=== PATIENT | female | born 1960 | race Caucasian/White ===

== ENCOUNTER 2016-08-02 01:41 | Emergency (ER) | payer OTHER ==
[~2016-08-02] VITALS: Ht 162.5 cm; Wt 86.2 kg
[~2016-08-02 01:41] MED LIST: ALL DAY ALLERGY10 MG PO; AMBIEN10 M1 PO; AMITRIPTYLINE H10 M1 PO; ATIVAN0.5 MG PO; Amitriptyline H10 MG PO; BACLOFEN20 M1 PO; CYCLOBENZAPRINE10 MG PO; DICYCLOMINE HCL20 MG PO; GOOD NEIGHBOR150 MG PO; HYDROXYZINE HCL25 M1 PO; IBU800 M1 PO; LACTULOSE10 GM/151 PO; MEDROL DOSEPAK4 MG PO; MIRALAX POWDER17 G1 PO; MIRALAX POWDER255 G1 PO; NASAL ALLERGY S13 ML NAS; NORCO 5-325 TA1 EACH PO; OMEPRAZOLE40 MG PO; OXYCODONE AND A1 TA4 PO; PAXIL10 MG PO; PAXIL30 M2 PO; PAXIL40 M1 PO; PERCOCET 325 MG1 TA2 PO; PERCOCET 325 MG1 TA5 PO; PRILOSEC20 M1 PO; PROAIR HFA8.5 GM INH; PYRIDIUM100 MG PO; RANITIDINE 7575 MG PO; ROBAXIN750 MG PO; ROZEREM8 MG PO; TRAMADOL HCL50 MG PO; VALIUM5 MG PO; VICODIN 5/500 505 MG PO; ZOFRAN ODT4 MG SL; Zofran4 MG PO
[2016-08-02 01:47] VITALS: BP 163/93
[2016-08-02 03:01] LABS: BASO # 0.1 10*3/uL (0.0-0.1); BASO % 0.7 % (0.0-1.0); EOS # 0.3 10*3/uL (0.0-0.4); EOS % 3.3 % (1.0-4.0); HEMATOCRIT 47.4 % (37.0-47.0); LYMPH # 2.8 10*3/uL (1.3-4.4); LYMPH % 27.9 % (27.0-41.0); MEAN CELL VOLUME 89.8 fl (81.0-99.0); MEAN CORPUSCULAR HGB 30.3 pg (27.0-31.0); MEAN CORPUSCULAR HGB CONC 33.8 g/dl (33.0-37.0); MEAN PLATELET VOLUME 10.1 fl (9.6-12.3); MONO # 0.6 10*3/uL (0.1-1.0); MONO % 6.3 % (3.0-9.0); NEUT # 6.2 10*3/uL (2.3-7.9); NEUT % 61.6 % (47.0-73.0); PLATELET COUNT AUTOMATED 289 10*3/uL (130-400); RED BLOOD COUNT 5.28 10*6/uL (4.10-5.10); WHITE BLOOD COUNT 10.1 10*3/uL (4.8-10.8)
[2016-08-02 03:19] LABS: C-REACTIVE PROTEIN 0.86 MG/DL (0-0.3); MAGNESIUM 2.4 mg/dL (1.5-2.1)
[2016-08-02 03:25] LABS: ALBUMIN 3.8 gm/dl (3.1-4.5); ALKALINE PHOSPHATASE 88 U/L (45-117); BILIRUBIN, TOTAL 0.3 mg/dl (0.2-1.0); BUN 10 mg/dl (7-24); CARBON DIOXIDE 25 mmol/L (21-32); CHLORIDE 107 mmol/L (98-107); EST GLOM FILT AFRICAN AMERICAN > 60 ml/min; POTASSIUM 4.1 mmol/L (3.5-5.1); SGOT/AST 20 IU/L (3-35); SGPT/ALT 20 U/L (12-78); SODIUM 143 mmol/L (136-145); TOTAL PROTEIN 7.9 gm/dL (6.4-8.2)
[2016-08-02 03:26] LABS: GLUCOSE 105 mg/dL (65-99)
[2016-08-02 03:34] LABS: BILIRUBIN NEGATIVE (NEGATIVE); BLOOD TRACE-LYSED (NEGATIVE); CLARITY CLEAR (CLEAR); COLOR YELLOW (YELLOW); GLUCOSE NEGATIVE (NEGATIVE); KETONE NEGATIVE (NEGATIVE); LEUKO ESTERASE NEGATIVE (NEGATIVE); NITRITE NEGATIVE (NEGATIVE); PH 6.5 (5.0-9.0); PROTEIN NEGATIVE (NEGATIVE); SPECIFIC GRAVITY <= 1.005 (1.005-1.030); UROBILINOGEN 0.2 E.U./dl (0.2-1.0)
[2016-08-02 03:42] LABS: BACTERIA 2+; WBC 0-2 wbc/hpf (0-5)
[2016-08-02 03:43] LABS: URINE REFLEX COMMENT YES (NO)
[2016-08-02 03:47] LABS: URINE AMPHETAMINES < 1000 (1000ng/ml); URINE BARBITURATES < 200 (200ng/ml); URINE COCAINE < 300 (300ng/ml)
[2016-08-02] MEDS ORDERED: PHENERGAN25 M3 PO (03:53)
[2016-08-02] MEDS ORDERED: PERCOCET 325 MG1 TA2 PO (04:37)
[2016-08-27] MEDS ORDERED: ACETAMINOPHEN-O1 TAB PO (22:59)
[2016-09-05] MEDS ORDERED: PROBIOTIC1 EAC4 PO (19:37)
[2016-09-05] MEDS ORDERED: PERCOCET 325 MG1 TA2 PO (21:05)
[2016-09-11] MEDS ORDERED: RANITIDINE HCL150 M1 PO (06:07)
[2016-09-11] MEDS ORDERED: VISTARIL25 M2 PO (06:08)
[2016-09-11] MEDS ORDERED: PERCOCET 325 MG1 TA2 PO (06:09)
[2016-10-02] MEDS ORDERED: CHANTIX START M1 TAB PO (20:44)
[2016-10-04] MEDS ORDERED: PEPCID20 MG PO (10:10)
[2016-10-11] MEDS ORDERED: Phenergan25 MG PO (06:21)
[2016-10-11] MEDS ORDERED: PERCOCET 325 MG1 TA2 PO (06:21)
== END 2016-08-02 05:07 | disposition home or self-care (01) ==
LOC: ED 01:41
PROVIDERS: Emergency Medicine Emergency Medical Services
DX: K86.1 Other chronic pancreatitis (principal); F41.9 Anxiety disorder, unspecified; K21.9 Gastro-esophageal reflux disease without esophagitis; I10 Essential (primary) hypertension; F17.200 Nicotine dependence, unspecified, uncomplicated; Z88.1 Allergy status to other antibiotic agents; Z88.6 Allergy status to analgesic agent; Z91.041 Radiographic dye allergy status; Z79.899 Other long term (current) drug therapy

== ENCOUNTER 2016-08-12 23:20 | Emergency (ER) | payer OTHER ==
[~2016-08-12] VITALS: Ht 162.5 cm; Wt 86.2 kg
[~2016-08-12 23:20] MED LIST changes: +PHENERGAN25 M3 PO
[2016-08-12 23:52] LABS: BILIRUBIN NEGATIVE (NEGATIVE); BLOOD 1+ (NEGATIVE); CLARITY CLEAR (CLEAR); COLOR STRAW (YELLOW); GLUCOSE NEGATIVE (NEGATIVE); KETONE NEGATIVE (NEGATIVE); LEUKO ESTERASE NEGATIVE (NEGATIVE); NITRITE NEGATIVE (NEGATIVE); PH 5.5 (5.0-9.0); PROTEIN NEGATIVE (NEGATIVE); SPECIFIC GRAVITY <= 1.005 (1.005-1.030); UROBILINOGEN 0.2 E.U./dl (0.2-1.0)
[2016-08-13 00:02] LABS: BACTERIA 1+; URINE REFLEX COMMENT YES (NO); WBC 0-2 wbc/hpf (0-5)
[2016-08-13 00:16] LABS: BASO # 0.1 10*3/uL (0.0-0.1); BASO % 0.6 % (0.0-1.0); EOS # 0.2 10*3/uL (0.0-0.4); EOS % 1.4 % (1.0-4.0); HEMATOCRIT 49.6 % (37.0-47.0); HEMOGLOBIN 16.3 g/dl (12.0-16.0); LYMPH % 27.8 % (27.0-41.0); MEAN CELL VOLUME 89.7 fl (81.0-99.0); MEAN CORPUSCULAR HGB 29.5 pg (27.0-31.0); MEAN CORPUSCULAR HGB CONC 32.9 g/dl (33.0-37.0); MEAN PLATELET VOLUME 9.4 fl (9.6-12.3); MONO # 0.5 10*3/uL (0.1-1.0); MONO % 4.7 % (3.0-9.0); NEUT # 6.9 10*3/uL (2.3-7.9); NEUT % 65.2 % (47.0-73.0); PLATELET COUNT AUTOMATED 265 10*3/uL (130-400); RED BLOOD COUNT 5.53 10*6/uL (4.10-5.10); RED CELL DISTRI WIDTH 13.5 % (0-14.5); WHITE BLOOD COUNT 10.6 10*3/uL (4.8-10.8)
[2016-08-13 00:28] LABS: ALBUMIN 3.9 gm/dl (3.1-4.5); ALKALINE PHOSPHATASE 89 U/L (45-117); BILIRUBIN, TOTAL 0.4 mg/dl (0.2-1.0); BUN 10 mg/dl (7-24); CARBON DIOXIDE 23 mmol/L (21-32); CHLORIDE 108 mmol/L (98-107); EST GLOM FILT AFRICAN AMERICAN > 60 ml/min; GLUCOSE 105 mg/dL (65-99); POTASSIUM 3.8 mmol/L (3.5-5.1); SGOT/AST 21 IU/L (3-35); SGPT/ALT 20 U/L (12-78); SODIUM 140 mmol/L (136-145); TOTAL PROTEIN 7.6 gm/dL (6.4-8.2)
[2016-08-13 02:24] VITALS: BP 133/68
[2016-08-27] MEDS ORDERED: ACETAMINOPHEN-O1 TAB PO (22:59)
[2016-09-05] MEDS ORDERED: PROBIOTIC1 EAC4 PO (19:37)
[2016-09-05] MEDS ORDERED: PERCOCET 325 MG1 TA2 PO (21:05)
[2016-09-11] MEDS ORDERED: RANITIDINE HCL150 M1 PO (06:07)
[2016-09-11] MEDS ORDERED: VISTARIL25 M2 PO (06:08)
[2016-09-11] MEDS ORDERED: PERCOCET 325 MG1 TA2 PO (06:09)
[2016-10-02] MEDS ORDERED: CHANTIX START M1 TAB PO (20:44)
[2016-10-04] MEDS ORDERED: PEPCID20 MG PO (10:10)
[2016-10-11] MEDS ORDERED: Phenergan25 MG PO (06:21)
[2016-10-11] MEDS ORDERED: PERCOCET 325 MG1 TA2 PO (06:21)
== END 2016-08-13 01:35 | disposition short-term general hospital (02) ==
LOC: ED 23:20
PROVIDERS: Registered Nurse
DX: K85.90 Acute pancreatitis without necrosis or infection, unspecified (principal); Z91.041 Radiographic dye allergy status; Z88.1 Allergy status to other antibiotic agents; Z88.6 Allergy status to analgesic agent; Z79.899 Other long term (current) drug therapy

== ENCOUNTER 2016-08-19 02:17 | Emergency (ER) | payer OTHER ==
[~2016-08-19] VITALS: Ht 162.5 cm; Wt 86.2 kg
[2016-08-19 02:22] VITALS: BP 172/100
[2016-08-19 03:01] LABS: BASO # 0.1 10*3/uL (0.0-0.1); BASO % 0.7 % (0.0-1.0); EOS # 0.4 10*3/uL (0.0-0.4); EOS % 3.7 % (1.0-4.0); HEMATOCRIT 43.1 % (37.0-47.0); HEMOGLOBIN 14.3 g/dl (12.0-16.0); LYMPH % 39.3 % (27.0-41.0); MEAN CELL VOLUME 90.2 fl (81.0-99.0); MEAN CORPUSCULAR HGB 29.9 pg (27.0-31.0); MEAN CORPUSCULAR HGB CONC 33.2 g/dl (33.0-37.0); MEAN PLATELET VOLUME 9.4 fl (9.6-12.3); MONO # 0.7 10*3/uL (0.1-1.0); MONO % 7.1 % (3.0-9.0); NEUT % 48.8 % (47.0-73.0); PLATELET COUNT AUTOMATED 248 10*3/uL (130-400); RED BLOOD COUNT 4.78 10*6/uL (4.10-5.10); RED CELL DISTRI WIDTH 13.6 % (0-14.5); WHITE BLOOD COUNT 10.3 10*3/uL (4.8-10.8)
[2016-08-19 03:17] LABS: ALBUMIN 3.6 gm/dl (3.1-4.5); BILIRUBIN, TOTAL 0.4 mg/dl (0.2-1.0); C-REACTIVE PROTEIN 0.61 MG/DL (0-0.3); MAGNESIUM 1.9 mg/dL (1.5-2.1); POTASSIUM 3.8 mmol/L (3.5-5.1); TOTAL PROTEIN 7.2 gm/dL (6.4-8.2)
[2016-08-19] MEDS ORDERED: PERCOCET 325 MG1 TA2 PO (03:43)
[2016-08-27] MEDS ORDERED: ACETAMINOPHEN-O1 TAB PO (22:59)
[2016-09-05] MEDS ORDERED: PROBIOTIC1 EAC4 PO (19:37)
[2016-09-05] MEDS ORDERED: PERCOCET 325 MG1 TA2 PO (21:05)
[2016-09-11] MEDS ORDERED: RANITIDINE HCL150 M1 PO (06:07)
[2016-09-11] MEDS ORDERED: VISTARIL25 M2 PO (06:08)
[2016-09-11] MEDS ORDERED: PERCOCET 325 MG1 TA2 PO (06:09)
[2016-10-02] MEDS ORDERED: CHANTIX START M1 TAB PO (20:44)
[2016-10-04] MEDS ORDERED: PEPCID20 MG PO (10:10)
[2016-10-11] MEDS ORDERED: Phenergan25 MG PO (06:21)
[2016-10-11] MEDS ORDERED: PERCOCET 325 MG1 TA2 PO (06:21)
== END 2016-08-19 04:01 | disposition home or self-care (01) ==
LOC: ED 02:17
PROVIDERS: Emergency Medicine Emergency Medical Services
DX: R10.12 Left upper quadrant pain (principal); R11.0 Nausea; F41.9 Anxiety disorder, unspecified; K21.9 Gastro-esophageal reflux disease without esophagitis; F17.200 Nicotine dependence, unspecified, uncomplicated; Z79.899 Other long term (current) drug therapy; Z88.1 Allergy status to other antibiotic agents; Z88.6 Allergy status to analgesic agent; Z91.041 Radiographic dye allergy status; Z87.19 Personal history of other diseases of the digestive system

== ENCOUNTER 2016-10-22 22:34 | Emergency (ER) | payer OTHER ==
[~2016-10-22] VITALS: Ht 162.5 cm; Wt 82.6 kg
[~2016-10-22 22:34] MED LIST changes: +ACETAMINOPHEN-O1 TAB PO; +CHANTIX START M1 TAB PO; +PEPCID20 MG PO; +PROBIOTIC1 EAC4 PO; +Phenergan25 MG PO; +RANITIDINE HCL150 M1 PO; +VISTARIL25 M2 PO
[2016-10-22 22:53] VITALS: BP 133/85
[2016-10-22 23:34] LABS: BASO # 0.1 10*3/uL (0.0-0.1); BASO % 0.7 % (0.0-1.0); EOS # 0.3 10*3/uL (0.0-0.4); EOS % 2.2 % (1.0-4.0); HEMATOCRIT 45.4 % (37.0-47.0); HEMOGLOBIN 15.4 g/dl (12.0-16.0); LYMPH # 4.8 10*3/uL (1.3-4.4); LYMPH % 37.9 % (27.0-41.0); MEAN CORPUSCULAR HGB 29.5 pg (27.0-31.0); MEAN CORPUSCULAR HGB CONC 33.9 g/dl (33.0-37.0); MEAN PLATELET VOLUME 9.8 fl (9.6-12.3); MONO # 0.8 10*3/uL (0.1-1.0); NEUT # 6.6 10*3/uL (2.3-7.9); NEUT % 52.9 % (47.0-73.0); PLATELET COUNT AUTOMATED 276 10*3/uL (130-400); RED BLOOD COUNT 5.22 10*6/uL (4.10-5.10); RED CELL DISTRI WIDTH 14.1 % (0-14.5); WHITE BLOOD COUNT 12.5 10*3/uL (4.8-10.8)
[2016-10-22 23:39] LABS: BILIRUBIN NEGATIVE (NEGATIVE); BLOOD TRACE-INTACT (NEGATIVE); CLARITY CLEAR (CLEAR); COLOR YELLOW (YELLOW); GLUCOSE NEGATIVE (NEGATIVE); KETONE NEGATIVE (NEGATIVE); LEUKO ESTERASE NEGATIVE (NEGATIVE); NITRITE NEGATIVE (NEGATIVE); PROTEIN NEGATIVE (NEGATIVE); SPECIFIC GRAVITY <= 1.005 (1.005-1.030); UROBILINOGEN 0.2 E.U./dl (0.2-1.0)
[2016-10-22 23:46] LABS: BACTERIA 2+
[2016-10-22 23:47] LABS: URINE REFLEX COMMENT YES (NO)
[2016-10-22 23:53] LABS: ALBUMIN 3.5 gm/dl (3.1-4.5); ALKALINE PHOSPHATASE 85 U/L (45-117); BILIRUBIN, TOTAL 0.3 mg/dl (0.2-1.0); BUN 14 mg/dl (7-24); CARBON DIOXIDE 22 mmol/L (21-32); CHLORIDE 106 mmol/L (98-107); EST GLOM FILT AFRICAN AMERICAN > 60 ml/min; GLUCOSE 105 mg/dL (65-99); POTASSIUM 4.4 mmol/L (3.5-5.1); SGOT/AST 33 IU/L (3-35); SGPT/ALT 23 U/L (12-78); SODIUM 140 mmol/L (136-145); TOTAL PROTEIN 7.8 gm/dL (6.4-8.2)
[2016-10-22 23:57] LABS: TROPONIN I < 0.015 ng/ml (<0.045)
[2016-10-23] MEDS ORDERED: PERCOCET 325 MG1 TA2 PO ×2 (01:03→01:12)
== END 2016-10-23 01:15 | disposition home or self-care (01) ==
LOC: ED 22:34
PROVIDERS: Emergency Medicine
DX: M43.16 Spondylolisthesis, lumbar region (principal); M54.2 Cervicalgia; F41.9 Anxiety disorder, unspecified; M19.90 Unspecified osteoarthritis, unspecified site; J45.909 Unspecified asthma, uncomplicated; G89.29 Other chronic pain; J44.9 Chronic obstructive pulmonary disease, unspecified; E78.5 Hyperlipidemia, unspecified; M79.7 Fibromyalgia; K21.9 Gastro-esophageal reflux disease without esophagitis; F17.200 Nicotine dependence, unspecified, uncomplicated; G43.909 Migraine, unspecified, not intractable, without status migrainosus; E66.9 Obesity, unspecified; E11.9 Type 2 diabetes mellitus without complications; Z98.890 Other specified postprocedural states; Z68.34 Body mass index [BMI] 34.0-34.9, adult; Z90.49 Acquired absence of other specified parts of digestive tract; Z79.899 Other long term (current) drug therapy; Z88.1 Allergy status to other antibiotic agents; Z88.5 Allergy status to narcotic agent; Z91.041 Radiographic dye allergy status; W01.0XXA Fall on same level from slipping, tripping and stumbling without subsequent striking against object, initial encounter; Y93.89 Activity, other specified; Y92.89 Other specified places as the place of occurrence of the external cause; Y99.9 Unspecified external cause status

== ENCOUNTER 2016-10-26 23:41 | Emergency (ER) | payer OTHER ==
[~2016-10-26] VITALS: Ht 162.5 cm; Wt 82.1 kg
[2016-10-26 23:46] VITALS: BP 157/98
[2016-10-26] MEDS ORDERED: ACETAMINOPHEN-O1 TAB PO (23:48)
[2016-10-27 00:20] LABS: BASO # 0.1 10*3/uL (0.0-0.1); BASO % 0.5 % (0.0-1.0); EOS # 0.3 10*3/uL (0.0-0.4); EOS % 2.6 % (1.0-4.0); HEMATOCRIT 45.1 % (37.0-47.0); HEMOGLOBIN 15.1 g/dl (12.0-16.0); LYMPH # 4.9 10*3/uL (1.3-4.4); LYMPH % 41.8 % (27.0-41.0); MEAN CELL VOLUME 88.4 fl (81.0-99.0); MEAN CORPUSCULAR HGB 29.6 pg (27.0-31.0); MEAN CORPUSCULAR HGB CONC 33.5 g/dl (33.0-37.0); MEAN PLATELET VOLUME 9.7 fl (9.6-12.3); MONO # 0.7 10*3/uL (0.1-1.0); MONO % 6.1 % (3.0-9.0); NEUT # 5.7 10*3/uL (2.3-7.9); NEUT % 48.7 % (47.0-73.0); PLATELET COUNT AUTOMATED 248 10*3/uL (130-400); RED CELL DISTRI WIDTH 13.9 % (0-14.5); WHITE BLOOD COUNT 11.7 10*3/uL (4.8-10.8)
[2016-10-27 00:31] LABS: BILIRUBIN NEGATIVE (NEGATIVE); BLOOD 1+ (NEGATIVE); CLARITY CLEAR (CLEAR); COLOR YELLOW (YELLOW); GLUCOSE NEGATIVE (NEGATIVE); KETONE NEGATIVE (NEGATIVE); LEUKO ESTERASE NEGATIVE (NEGATIVE); NITRITE NEGATIVE (NEGATIVE); PROTEIN NEGATIVE (NEGATIVE); UROBILINOGEN 0.2 E.U./dl (0.2-1.0)
[2016-10-27 00:34] LABS: ALBUMIN 3.4 gm/dl (3.1-4.5); ALKALINE PHOSPHATASE 82 U/L (45-117); BILIRUBIN, TOTAL 0.1 mg/dl (0.2-1.0); BUN 15 mg/dl (7-24); CARBON DIOXIDE 24 mmol/L (21-32); CHLORIDE 105 mmol/L (98-107); EST GLOM FILT AFRICAN AMERICAN > 60 ml/min; GLUCOSE 105 mg/dL (65-99); SGOT/AST 19 IU/L (3-35); SGPT/ALT 18 U/L (12-78); SODIUM 138 mmol/L (136-145); TOTAL PROTEIN 7.1 gm/dL (6.4-8.2)
[2016-10-27 00:36] LABS: EPITHELIAL CELLS 15-20
[2016-10-27 00:37] LABS: BACTERIA TRACE; URINE REFLEX COMMENT YES (NO); WBC 0-2 wbc/hpf (0-5)
[2016-10-27] MEDS ORDERED: FLAGYL500 MG PO (00:48)
[2016-10-27] MEDS ORDERED: BENTYL10 MG PO (00:48)
== END 2016-10-27 02:19 | disposition home or self-care (01) ==
LOC: ED 23:41
PROVIDERS: Physician Assistant
DX: R10.33 Periumbilical pain (principal); F17.200 Nicotine dependence, unspecified, uncomplicated; Z79.899 Other long term (current) drug therapy; Z88.1 Allergy status to other antibiotic agents; Z88.6 Allergy status to analgesic agent; Z91.041 Radiographic dye allergy status; Z87.19 Personal history of other diseases of the digestive system

== ENCOUNTER → 2016-11-01 | Outpatient (CLI) | payer OTHER ==
[~2016-11-01] MED LIST changes: +BENTYL10 MG PO; +FLAGYL500 MG PO
== END | disposition home or self-care (01) ==
LOC: RAD 17:44
DX: J44.9 Chronic obstructive pulmonary disease, unspecified (principal); J98.11 Atelectasis; J84.10 Pulmonary fibrosis, unspecified; R06.2 Wheezing

== ENCOUNTER 2016-11-12 22:26 | Emergency (ER) | payer OTHER ==
[~2016-11-12] VITALS: Ht 162.5 cm; Wt 81.6 kg
[2016-11-12] MEDS ORDERED: CYCLOBENZAPRINE10 MG PO (22:37)
[2016-11-12 22:39] VITALS: BP 100/72
[2016-11-13 00:31] LABS: HEMATOCRIT 36.1 % (37.0-47.0); HEMOGLOBIN 12.2 g/dl (12.0-16.0); MEAN CELL VOLUME 88.7 fl (81.0-99.0); MEAN CORPUSCULAR HGB CONC 33.8 g/dl (33.0-37.0); MEAN PLATELET VOLUME 9.6 fl (9.6-12.3); PLATELET COUNT AUTOMATED 219 10*3/uL (130-400); RED BLOOD COUNT 4.07 10*6/uL (4.10-5.10); RED CELL DISTRI WIDTH 14.2 % (0-14.5); WHITE BLOOD COUNT 15.8 10*3/uL (4.8-10.8)
[2016-11-13 00:46] LABS: ALBUMIN 2.6 gm/dl (3.1-4.5); ALKALINE PHOSPHATASE 76 U/L (45-117); BILIRUBIN, TOTAL 0.6 mg/dl (0.2-1.0); BUN 10 mg/dl (7-24); CARBON DIOXIDE 27 mmol/L (21-32); CHLORIDE 101 mmol/L (98-107); EST GLOM FILT AFRICAN AMERICAN > 60 ml/min; GLUCOSE 111 mg/dL (65-99); POTASSIUM 3.4 mmol/L (3.5-5.1); SGOT/AST 42 IU/L (3-35); SGPT/ALT 27 U/L (12-78); SODIUM 139 mmol/L (136-145)
[2016-11-13 00:52] LABS: LYMPHOCYTE # 2.5 10*3/uL (1.3-4.4); MONOCYTE # 1.6 10*3/uL (0.1-1.0); NEUTROPHIL # 11.7 10*3/uL (2.3-7.9); NEUTROPHILS 74 % (47-73); PLATELET SUFFICIENCY NORMAL (NORMAL); TOTAL CELLS COUNTED 100 #CELLS
[2016-11-13 01:16] LABS: BILIRUBIN NEGATIVE (NEGATIVE); BLOOD 1+ (NEGATIVE); CLARITY CLEAR (CLEAR); COLOR YELLOW (YELLOW); GLUCOSE NEGATIVE (NEGATIVE); KETONE NEGATIVE (NEGATIVE); LEUKO ESTERASE TRACE (NEGATIVE); NITRITE NEGATIVE (NEGATIVE); PROTEIN NEGATIVE (NEGATIVE); SPECIFIC GRAVITY <= 1.005 (1.005-1.030); UROBILINOGEN 0.2 E.U./dl (0.2-1.0)
[2016-11-13 01:29] LABS: BACTERIA TRACE; URINE REFLEX COMMENT YES (NO)
[2016-11-13 01:38] LABS: URINE AMPHETAMINES < 1000 (1000ng/ml); URINE BARBITURATES < 200 (200ng/ml); URINE COCAINE < 300 (300ng/ml)
[2016-11-13] MEDS ORDERED: PERCOCET 325 MG1 TA2 PO (01:43)
[2016-11-13] MEDS ORDERED: ZOFRAN ODT4 MG SL (01:43)
== END 2016-11-13 01:47 | disposition home or self-care (01) ==
LOC: ED 22:26
PROVIDERS: Emergency Medicine Emergency Medical Services
DX: G89.18 Other acute postprocedural pain (principal); M54.5 Low back pain; F41.9 Anxiety disorder, unspecified; M19.90 Unspecified osteoarthritis, unspecified site; R53.83 Other fatigue; J44.9 Chronic obstructive pulmonary disease, unspecified; E78.5 Hyperlipidemia, unspecified; M79.7 Fibromyalgia; K21.9 Gastro-esophageal reflux disease without esophagitis; E66.9 Obesity, unspecified; G43.909 Migraine, unspecified, not intractable, without status migrainosus; Z90.49 Acquired absence of other specified parts of digestive tract; Z98.890 Other specified postprocedural states; Z98.51 Tubal ligation status; Z79.899 Other long term (current) drug therapy; Z88.1 Allergy status to other antibiotic agents; Z68.34 Body mass index [BMI] 34.0-34.9, adult; Z88.5 Allergy status to narcotic agent; Z91.041 Radiographic dye allergy status

== ENCOUNTER → 2016-11-15 | Emergency (ER) | payer OTHER ==
[~2016-11-15] VITALS: Ht 162.5 cm; Wt 81.6 kg
[2016-11-15 23:00] VITALS: BP 147/78
== END ==
LOC: ED 04:26
DX: G89.18 Other acute postprocedural pain (principal); F41.9 Anxiety disorder, unspecified; J45.909 Unspecified asthma, uncomplicated; G89.29 Other chronic pain; K21.9 Gastro-esophageal reflux disease without esophagitis; J44.9 Chronic obstructive pulmonary disease, unspecified; Z98.890 Other specified postprocedural states; Z88.1 Allergy status to other antibiotic agents; Z88.6 Allergy status to analgesic agent; Z91.041 Radiographic dye allergy status; Z79.899 Other long term (current) drug therapy

== ENCOUNTER 2016-12-04 21:50 | Emergency (ER) | payer OTHER ==
[~2016-12-04] VITALS: Ht 162.5 cm; Wt 85.3 kg
--- NOTE | ~2016-12-04 | EKG ---
[place], [place] ELECTROCARDIOGRAM REPORT NAME: JODIE MCINTOSH UNIT #: [id number] ROOM: DOCTOR: JM OLMOS MD BIRTHDATE: [birth year] DOS: 12/04/2016 TIME: 2244 hours. Normal sinus rhythm at 93 beats per minute. Moderate left axis deviation. Minimal criteria for LVH. An abnormal ECG. No previous tracing is available for comparison. JM OLMOS MD CM:EKGRPT:ELECTROCARDIOGRAM REPORT 1732 JM OLMOS MD
[2016-12-04] MEDS ORDERED: ANAPROX DS550 MG PO (22:18)
[2016-12-04] MEDS ORDERED: CEFADROXIL500 M1 PO (22:18)
[2016-12-04 23:05] LABS: BASO # 0.1 10*3/uL (0.0-0.1); BASO % 0.5 % (0.0-1.0); EOS # 0.2 10*3/uL (0.0-0.4); EOS % 1.8 % (1.0-4.0); HEMATOCRIT 41.2 % (37.0-47.0); HEMOGLOBIN 13.5 g/dl (12.0-16.0); LYMPH # 3.5 10*3/uL (1.3-4.4); LYMPH % 33.4 % (27.0-41.0); MEAN CELL VOLUME 88.4 fl (81.0-99.0); MEAN CORPUSCULAR HGB CONC 32.8 g/dl (33.0-37.0); MEAN PLATELET VOLUME 9.4 fl (9.6-12.3); MONO # 0.7 10*3/uL (0.1-1.0); MONO % 6.3 % (3.0-9.0); NEUT % 57.8 % (47.0-73.0); PLATELET COUNT AUTOMATED 309 10*3/uL (130-400); RED BLOOD COUNT 4.66 10*6/uL (4.10-5.10); RED CELL DISTRI WIDTH 14.4 % (0-14.5); WHITE BLOOD COUNT 10.4 10*3/uL (4.8-10.8)
[2016-12-04 23:20] LABS: PROTHROMBIN TIME 10.1 SECONDS (9.0-12.4)
[2016-12-04 23:21] LABS: ALBUMIN 3.5 gm/dl (3.1-4.5); ALKALINE PHOSPHATASE 104 U/L (45-117); BILIRUBIN, TOTAL 0.2 mg/dl (0.2-1.0); BUN 11 mg/dl (7-24); CARBON DIOXIDE 23 mmol/L (21-32); CHLORIDE 106 mmol/L (98-107); EST GLOM FILT AFRICAN AMERICAN > 60 ml/min; GLUCOSE 103 mg/dL (65-99); POTASSIUM 4.1 mmol/L (3.5-5.1); SGOT/AST 19 IU/L (3-35); SGPT/ALT 15 U/L (12-78); SODIUM 141 mmol/L (136-145); TOTAL PROTEIN 7.7 gm/dL (6.4-8.2); TROPONIN I < 0.015 ng/ml (<0.045)
[2016-12-04 23:32] LABS: BILIRUBIN NEGATIVE (NEGATIVE); BLOOD TRACE-INTACT (NEGATIVE); CLARITY CLEAR (CLEAR); COLOR YELLOW (YELLOW); GLUCOSE NEGATIVE (NEGATIVE); KETONE NEGATIVE (NEGATIVE); LEUKO ESTERASE NEGATIVE (NEGATIVE); NITRITE NEGATIVE (NEGATIVE); PH 6.5 (5.0-9.0); PROTEIN NEGATIVE (NEGATIVE); SPECIFIC GRAVITY <= 1.005 (1.005-1.030); UROBILINOGEN 0.2 E.U./dl (0.2-1.0)
[2016-12-04] MEDS ORDERED: Meclizine25 MG PO (23:48)
[2016-12-04 23:53] LABS: BACTERIA 1+; RBC 0-2 rbc/hpf (0-2); URINE REFLEX COMMENT YES (NO)
[2016-12-05 00:08] VITALS: BP 116/73
== END 2016-12-05 00:13 | disposition home or self-care (01) ==
LOC: ED 21:50
PROVIDERS: Physician Assistant
DX: R07.9 Chest pain, unspecified (principal); G89.29 Other chronic pain; M54.5 Low back pain; R42 Dizziness and giddiness; F41.9 Anxiety disorder, unspecified; F17.200 Nicotine dependence, unspecified, uncomplicated; Z90.49 Acquired absence of other specified parts of digestive tract; Z98.890 Other specified postprocedural states; Z98.51 Tubal ligation status; Z79.899 Other long term (current) drug therapy; Z88.1 Allergy status to other antibiotic agents; Z91.041 Radiographic dye allergy status; Z88.5 Allergy status to narcotic agent

== ENCOUNTER 2017-01-19 04:07 | Emergency (ER) | payer OTHER ==
[~2017-01-19] VITALS: Ht 162.5 cm; Wt 83.9 kg
[~2017-01-19 04:07] MED LIST changes: +ANAPROX DS550 MG PO; +CEFADROXIL500 M1 PO; +Meclizine25 MG PO
[2017-01-19 04:12] VITALS: BP 131/87
[2017-01-19] MEDS ORDERED: Percocet 325 MG1 TAB PO (04:13)
[2017-01-19 04:58] LABS: BASO # 0.1 10*3/uL (0.0-0.1); BASO % 0.6 % (0.0-1.0); EOS # 0.3 10*3/uL (0.0-0.4); EOS % 2.9 % (1.0-4.0); HEMATOCRIT 45.1 % (37.0-47.0); HEMOGLOBIN 14.3 g/dl (12.0-16.0); LYMPH # 4.3 10*3/uL (1.3-4.4); LYMPH % 43.3 % (27.0-41.0); MEAN CORPUSCULAR HGB 28.5 pg (27.0-31.0); MEAN CORPUSCULAR HGB CONC 31.7 g/dl (33.0-37.0); MEAN PLATELET VOLUME 9.5 fl (9.6-12.3); MONO # 0.7 10*3/uL (0.1-1.0); MONO % 6.5 % (3.0-9.0); NEUT # 4.7 10*3/uL (2.3-7.9); NEUT % 46.5 % (47.0-73.0); PLATELET COUNT AUTOMATED 281 10*3/uL (130-400); RED BLOOD COUNT 5.01 10*6/uL (4.10-5.10); RED CELL DISTRI WIDTH 14.8 % (0-14.5)
[2017-01-19 05:13] LABS: ALBUMIN 3.4 gm/dl (3.1-4.5); ALKALINE PHOSPHATASE 108 U/L (45-117); BILIRUBIN, TOTAL 0.2 mg/dl (0.2-1.0); BUN 14 mg/dl (7-24); CARBON DIOXIDE 22 mmol/L (21-32); CHLORIDE 107 mmol/L (98-107); EST GLOM FILT AFRICAN AMERICAN > 60 ml/min; GLUCOSE 112 mg/dL (65-99); POTASSIUM 3.8 mmol/L (3.5-5.1); SGOT/AST 18 IU/L (3-35); SGPT/ALT 18 U/L (12-78); SODIUM 141 mmol/L (136-145); TOTAL PROTEIN 7.4 gm/dL (6.4-8.2)
[2017-01-19 06:02] LABS: BILIRUBIN NEGATIVE (NEGATIVE); BLOOD TRACE-LYSED (NEGATIVE); CLARITY CLEAR (CLEAR); COLOR YELLOW (YELLOW); GLUCOSE NEGATIVE (NEGATIVE); KETONE NEGATIVE (NEGATIVE); LEUKO ESTERASE NEGATIVE (NEGATIVE); NITRITE NEGATIVE (NEGATIVE); PH 5.5 (5.0-9.0); PROTEIN NEGATIVE (NEGATIVE); SPECIFIC GRAVITY <= 1.005 (1.005-1.030); UROBILINOGEN 0.2 E.U./dl (0.2-1.0)
[2017-01-19 06:22] LABS: BACTERIA TRACE; URINE REFLEX COMMENT NO (NO)
[2017-01-19] MEDS ORDERED: PRILOSEC20 M1 PO (06:22)
== END 2017-01-19 06:42 | disposition home or self-care (01) ==
LOC: ED 04:07
PROVIDERS: Emergency Medicine
DX: K21.9 Gastro-esophageal reflux disease without esophagitis (principal); K29.70 Gastritis, unspecified, without bleeding; J45.909 Unspecified asthma, uncomplicated; M19.90 Unspecified osteoarthritis, unspecified site; J44.9 Chronic obstructive pulmonary disease, unspecified; Z87.19 Personal history of other diseases of the digestive system; Z79.899 Other long term (current) drug therapy; Z88.1 Allergy status to other antibiotic agents; Z88.6 Allergy status to analgesic agent; Z91.041 Radiographic dye allergy status

== ENCOUNTER 2017-02-05 21:04 | Emergency (ER) | payer OTHER ==
[~2017-02-05] VITALS: Ht 162.5 cm; Wt 84.4 kg
[~2017-02-05 21:04] MED LIST changes: +Percocet 325 MG1 TAB PO
[2017-02-05 21:14] VITALS: BP 127/80
[2017-02-05 22:14] LABS: BASO # 0.1 10*3/uL (0.0-0.1); BASO % 0.6 % (0.0-1.0); EOS # 0.4 10*3/uL (0.0-0.4); EOS % 3.8 % (1.0-4.0); HEMATOCRIT 45.3 % (37.0-47.0); HEMOGLOBIN 14.7 g/dl (12.0-16.0); LYMPH # 4.2 10*3/uL (1.3-4.4); MEAN CORPUSCULAR HGB 28.5 pg (27.0-31.0); MEAN CORPUSCULAR HGB CONC 32.5 g/dl (33.0-37.0); MEAN PLATELET VOLUME 9.2 fl (9.6-12.3); MONO # 0.7 10*3/uL (0.1-1.0); MONO % 7.1 % (3.0-9.0); NEUT % 43.4 % (47.0-73.0); PLATELET COUNT AUTOMATED 297 10*3/uL (130-400); RED BLOOD COUNT 5.15 10*6/uL (4.10-5.10); WHITE BLOOD COUNT 9.3 10*3/uL (4.8-10.8)
[2017-02-05 22:30] LABS: ALBUMIN 3.3 gm/dl (3.1-4.5); ALKALINE PHOSPHATASE 110 U/L (45-117); BILIRUBIN, TOTAL 0.1 mg/dl (0.2-1.0); BUN 14 mg/dl (7-24); CARBON DIOXIDE 22 mmol/L (21-32); CHLORIDE 105 mmol/L (98-107); EST GLOM FILT AFRICAN AMERICAN > 60 ml/min; GLUCOSE 106 mg/dL (65-99); SGOT/AST 21 IU/L (3-35); SGPT/ALT 19 U/L (12-78); SODIUM 141 mmol/L (136-145); TOTAL PROTEIN 7.2 gm/dL (6.4-8.2)
[2017-02-05 22:31] LABS: TROPONIN I < 0.015 ng/ml (<0.045)
== END 2017-02-06 00:29 | disposition home or self-care (01) ==
LOC: ED 21:04
PROVIDERS: Emergency Medicine Emergency Medical Services
DX: K59.00 Constipation, unspecified (principal); G89.29 Other chronic pain; R10.32 Left lower quadrant pain; K58.9 Irritable bowel syndrome, unspecified; J44.9 Chronic obstructive pulmonary disease, unspecified; J45.909 Unspecified asthma, uncomplicated; K21.9 Gastro-esophageal reflux disease without esophagitis; G43.909 Migraine, unspecified, not intractable, without status migrainosus; E11.9 Type 2 diabetes mellitus without complications; Z88.1 Allergy status to other antibiotic agents; Z88.6 Allergy status to analgesic agent; Z91.041 Radiographic dye allergy status; Z79.899 Other long term (current) drug therapy

== ENCOUNTER 2017-02-09 21:07 | Emergency (ER) | payer OTHER ==
[~2017-02-09] VITALS: Ht 162.5 cm; Wt 82.6 kg
[2017-02-09 21:52] VITALS: BP 133/92
== END 2017-02-09 22:32 | disposition left against medical advice (07) ==
LOC: ED 21:07
DX: R10.32 Left lower quadrant pain (principal); R11.2 Nausea with vomiting, unspecified; F17.200 Nicotine dependence, unspecified, uncomplicated; Z90.49 Acquired absence of other specified parts of digestive tract; Z88.1 Allergy status to other antibiotic agents; Z88.6 Allergy status to analgesic agent; Z91.041 Radiographic dye allergy status; Z79.899 Other long term (current) drug therapy

== ENCOUNTER 2017-02-13 21:55 | Emergency (ER) | payer OTHER ==
[~2017-02-13] VITALS: Ht 162.5 cm; Wt 82.6 kg
[2017-02-13 22:14] VITALS: BP 146/98
[2017-02-13 23:13] LABS: ALBUMIN 3.2 gm/dl (3.1-4.5); ALKALINE PHOSPHATASE 103 U/L (45-117); BILIRUBIN, TOTAL 0.2 mg/dl (0.2-1.0); BUN 16 mg/dl (7-24); CARBON DIOXIDE 21 mmol/L (21-32); CHLORIDE 108 mmol/L (98-107); EST GLOM FILT AFRICAN AMERICAN > 60 ml/min; GLUCOSE 112 mg/dL (65-99); SGOT/AST 25 IU/L (3-35); SGPT/ALT 20 U/L (12-78); SODIUM 140 mmol/L (136-145); TOTAL PROTEIN 7.2 gm/dL (6.4-8.2)
[2017-02-13 23:38] LABS: BASO # 0.1 10*3/uL (0.0-0.1); BASO % 0.6 % (0.0-1.0); EOS # 0.3 10*3/uL (0.0-0.4); EOS % 2.7 % (1.0-4.0); HEMATOCRIT 42.7 % (37.0-47.0); LYMPH % 34.9 % (27.0-41.0); MEAN CELL VOLUME 86.1 fl (81.0-99.0); MEAN CORPUSCULAR HGB 28.2 pg (27.0-31.0); MEAN CORPUSCULAR HGB CONC 32.8 g/dl (33.0-37.0); MEAN PLATELET VOLUME 9.3 fl (9.6-12.3); MONO # 0.8 10*3/uL (0.1-1.0); MONO % 7.3 % (3.0-9.0); NEUT # 6.3 10*3/uL (2.3-7.9); NEUT % 54.2 % (47.0-73.0); PLATELET COUNT AUTOMATED 306 10*3/uL (130-400); RED BLOOD COUNT 4.96 10*6/uL (4.10-5.10); WHITE BLOOD COUNT 11.6 10*3/uL (4.8-10.8)
[2017-02-14] MEDS ORDERED: NAPROSYN500 MG PO (17:08)
[2017-02-14] MEDS ORDERED: PHENERGAN25 M3 PO (17:11)
== END 2017-02-14 01:03 | disposition home or self-care (01) ==
LOC: ED 21:55
PROVIDERS: Nurse Practitioner Family
DX: G89.29 Other chronic pain (principal); R10.9 Unspecified abdominal pain; R11.2 Nausea with vomiting, unspecified; Z88.1 Allergy status to other antibiotic agents; Z88.6 Allergy status to analgesic agent; Z91.041 Radiographic dye allergy status; Z79.899 Other long term (current) drug therapy; Z87.891 Personal history of nicotine dependence

== ENCOUNTER 2017-02-14 14:53 | Emergency (ER) | payer OTHER ==
[~2017-02-14] VITALS: Wt 82.6 kg
[2017-02-14 15:22] VITALS: BP 130/106
[2017-02-14] MEDS ORDERED: NAPROSYN500 MG PO (17:08)
[2017-02-14] MEDS ORDERED: PHENERGAN25 M3 PO (17:11)
== END 2017-02-14 17:14 | disposition home or self-care (01) ==
LOC: ED 14:53
DX: S46.911A Strain of unspecified muscle, fascia and tendon at shoulder and upper arm level, right arm, initial encounter (principal); J45.909 Unspecified asthma, uncomplicated; M19.90 Unspecified osteoarthritis, unspecified site; K21.9 Gastro-esophageal reflux disease without esophagitis; G43.909 Migraine, unspecified, not intractable, without status migrainosus; E11.9 Type 2 diabetes mellitus without complications; F17.200 Nicotine dependence, unspecified, uncomplicated; Z88.1 Allergy status to other antibiotic agents; Z88.6 Allergy status to analgesic agent; Z91.040 Latex allergy status; Z79.899 Other long term (current) drug therapy; X58.XXXA Exposure to other specified factors, initial encounter; Y93.89 Activity, other specified; Y92.89 Other specified places as the place of occurrence of the external cause; Y99.8 Other external cause status

== ENCOUNTER → 2017-04-02 | Outpatient (CLI) | payer OTHER ==
[~2017-04-02] MED LIST changes: +NAPROSYN500 MG PO
== END | disposition home or self-care (01) ==
LOC: RAD 16:36
DX: M47.817 Spondylosis without myelopathy or radiculopathy, lumbosacral region (principal)

== ENCOUNTER 2017-04-15 02:29 | Emergency (ER) | payer OTHER ==
[~2017-04-15] VITALS: Ht 170.1 cm; Wt 74.8 kg
[2017-04-15 02:38] VITALS: BP 136/70
[2017-04-15 03:03] LABS: BILIRUBIN NEGATIVE (NEGATIVE); BLOOD 1+ (NEGATIVE); CLARITY CLEAR (CLEAR); COLOR YELLOW (YELLOW); GLUCOSE NEGATIVE (NEGATIVE); KETONE NEGATIVE (NEGATIVE); LEUKO ESTERASE NEGATIVE (NEGATIVE); NITRITE NEGATIVE (NEGATIVE); PH 5.5 (5.0-9.0); SPECIFIC GRAVITY 1.015 (1.005-1.030); UROBILINOGEN 0.2 E.U./dl (0.2-1.0)
[2017-04-15 03:04] LABS: BASO # 0.1 10*3/uL (0.0-0.1); BASO % 0.6 % (0.0-1.0); EOS # 0.4 10*3/uL (0.0-0.4); EOS % 3.6 % (1.0-4.0); LYMPH # 4.5 10*3/uL (1.3-4.4); LYMPH % 41.3 % (27.0-41.0); MEAN CORPUSCULAR HGB CONC 33.3 g/dl (33.0-37.0); MEAN PLATELET VOLUME 10.7 fl (9.6-12.3); MONO # 0.6 10*3/uL (0.1-1.0); MONO % 5.6 % (3.0-9.0); NEUT # 5.3 10*3/uL (2.3-7.9); NEUT % 48.7 % (47.0-73.0); PLATELET COUNT AUTOMATED 312 10*3/uL (130-400); RED BLOOD COUNT 5.52 10*6/uL (4.10-5.10); RED CELL DISTRI WIDTH 15.9 % (0-14.5); WHITE BLOOD COUNT 10.8 10*3/uL (4.8-10.8)
[2017-04-15 03:35] LABS: ALBUMIN 3.3 gm/dl (3.1-4.5); ALKALINE PHOSPHATASE 102 U/L (45-117); BUN 14 mg/dl (7-24); CHLORIDE 107 mmol/L (98-107); CREATININE 0.89 mg/dL (0.55-1.02); LIPASE 379 U/L (73-393); MAGNESIUM 2.2 mg/dL (1.5-2.1); POTASSIUM 3.9 mmol/L (3.5-5.1); SGOT/AST 16 IU/L (3-35); SGPT/ALT 16 U/L (12-78); SODIUM 139 mmol/L (136-145); TOTAL PROTEIN 7.1 gm/dL (6.4-8.2)
[2017-04-15] MEDS ORDERED: PHENERGAN25 M3 PO (03:53)
== END 2017-04-15 04:53 | disposition home or self-care (01) ==
LOC: ED 02:29
PROVIDERS: Student in an Organized Health Care Education/Training Program
DX: R10.9 Unspecified abdominal pain (principal); R19.7 Diarrhea, unspecified; R11.10 Vomiting, unspecified; J45.909 Unspecified asthma, uncomplicated; J44.9 Chronic obstructive pulmonary disease, unspecified; K21.9 Gastro-esophageal reflux disease without esophagitis; E11.9 Type 2 diabetes mellitus without complications; G43.909 Migraine, unspecified, not intractable, without status migrainosus; Z88.1 Allergy status to other antibiotic agents; Z88.6 Allergy status to analgesic agent; Z91.041 Radiographic dye allergy status; Z79.899 Other long term (current) drug therapy

== ENCOUNTER 2017-04-26 23:01 | Emergency (ER) | payer OTHER ==
[~2017-04-26] VITALS: Ht 162.5 cm; Wt 80.7 kg
[2017-04-26 23:36] LABS: ACT PARTIAL THROMBO TIME 27.1 SECONDS (20.8-31.5)
[2017-04-26 23:40] LABS: BASO # 0.1 10*3/uL (0.0-0.1); BASO % 0.5 % (0.0-1.0); EOS # 0.3 10*3/uL (0.0-0.4); EOS % 2.7 % (1.0-4.0); HEMATOCRIT 42.3 % (37.0-47.0); HEMOGLOBIN 14.3 g/dl (12.0-16.0); LYMPH # 4.4 10*3/uL (1.3-4.4); LYMPH % 40.3 % (27.0-41.0); MEAN CELL VOLUME 86.9 fl (81.0-99.0); MEAN CORPUSCULAR HGB 29.4 pg (27.0-31.0); MEAN CORPUSCULAR HGB CONC 33.8 g/dl (33.0-37.0); MEAN PLATELET VOLUME 9.6 fl (9.6-12.3); MONO # 0.8 10*3/uL (0.1-1.0); MONO % 7.4 % (3.0-9.0); NEUT # 5.3 10*3/uL (2.3-7.9); NEUT % 48.8 % (47.0-73.0); PLATELET COUNT AUTOMATED 247 10*3/uL (130-400); RED BLOOD COUNT 4.87 10*6/uL (4.10-5.10); RED CELL DISTRI WIDTH 15.3 % (0-14.5); WHITE BLOOD COUNT 10.9 10*3/uL (4.8-10.8)
[2017-04-26 23:42] LABS: ALBUMIN 3.5 gm/dl (3.1-4.5); ALKALINE PHOSPHATASE 112 U/L (45-117); BUN 12 mg/dl (7-24); CHLORIDE 106 mmol/L (98-107); CREATININE 1.06 mg/dL (0.55-1.02); POTASSIUM 3.6 mmol/L (3.5-5.1); SGOT/AST 17 IU/L (3-35); SGPT/ALT 16 U/L (12-78); SODIUM 139 mmol/L (136-145); TOTAL PROTEIN 7.8 gm/dL (6.4-8.2)
[2017-04-26 23:44] LABS: TROPONIN I < 0.015 ng/ml (<0.045)
[2017-04-27 00:04] VITALS: BP 180/74
== END 2017-04-27 00:10 | disposition home or self-care (01) ==
LOC: ED 23:01
PROVIDERS: Emergency Medicine
DX: R07.9 Chest pain, unspecified (principal); R00.2 Palpitations; K21.9 Gastro-esophageal reflux disease without esophagitis; G43.909 Migraine, unspecified, not intractable, without status migrainosus; F17.200 Nicotine dependence, unspecified, uncomplicated; Z90.49 Acquired absence of other specified parts of digestive tract; Z88.1 Allergy status to other antibiotic agents; Z88.6 Allergy status to analgesic agent; Z88.8 Allergy status to other drugs, medicaments and biological substances; Z91.041 Radiographic dye allergy status

== ENCOUNTER 2017-05-30 18:23 | Emergency (ER) | payer OTHER ==
[~2017-05-30] VITALS: Wt 84.4 kg
[2017-05-30 18:28] VITALS: BP 130/86
== END 2017-05-30 20:01 | disposition home or self-care (01) ==
LOC: ED 18:23
DX: S80.02XA Contusion of left knee, initial encounter (principal); F17.200 Nicotine dependence, unspecified, uncomplicated; K21.9 Gastro-esophageal reflux disease without esophagitis; G43.909 Migraine, unspecified, not intractable, without status migrainosus; E78.5 Hyperlipidemia, unspecified; J44.9 Chronic obstructive pulmonary disease, unspecified; Z88.1 Allergy status to other antibiotic agents; Z88.6 Allergy status to analgesic agent; Z91.041 Radiographic dye allergy status

== ENCOUNTER 2017-06-08 20:40 | Inpatient (IN) | payer OTHER ==
[~2017-06-08] VITALS: Ht 160 cm; Wt 83.1 kg
--- NOTE | ~2017-06-08 | EKG ---
[place], [place] ELECTROCARDIOGRAM REPORT NAME: JODIE MCINTOSH UNIT #: [id number] ROOM: 415 DOCTOR: FABIEN RANDALL,ISAMAR BIRTHDATE: [birth year] DOS: 06/08/2017 TIME: 2121 hours. IMPRESSION: 1. Sinus rhythm. 2. Poor R-wave progression. 3. Nonspecific ST-T changes. 4. Left ventricular hypertrophy. 5. Normal QT interval. ISAMAR CONN MD CM:EKGRPT:ELECTROCARDIOGRAM REPORT 1021 [id number] ISAMAR CONN MD
[2017-06-08 20:47] VITALS: BP 96/85
[2017-06-08 21:07] LABS: BILIRUBIN NEGATIVE (NEGATIVE); BLOOD 2+ (NEGATIVE); CLARITY SL CLOUDY (CLEAR); COLOR YELLOW (YELLOW); GLUCOSE NEGATIVE (NEGATIVE); KETONE NEGATIVE (NEGATIVE); LEUKO ESTERASE NEGATIVE (NEGATIVE); NITRITE NEGATIVE (NEGATIVE); SPECIFIC GRAVITY 1.015 (1.005-1.030); UROBILINOGEN 0.2 E.U./dl (0.2-1.0)
[2017-06-08 21:18] LABS: MUCOUS TRACE
[2017-06-08 21:21] LABS: URINE AMPHETAMINES < 1000 (1000ng/ml); URINE BARBITURATES < 200 (200ng/ml); URINE BENZODIAZEPINES < 200 (200ng/ml); URINE CANNABINOIDS (THC) < 50 (50ng/ml); URINE COCAINE < 300 (300ng/ml); URINE METHADONE < 300 (300ng/ml); URINE OPIATES < 300 (300ng/ml)
[2017-06-08 21:23] LABS: URINE PHENCYCLIDINE < 25 (25ng/ml)
--- NOTE | 2017-06-08 21:49 | NUR ---
PT STATES PAIN BEFORE TORADOL 03/07 STILL 8 AFTER
[2017-06-08 23:36] LABS: ALBUMIN 3.1 gm/dl (3.1-4.5); ALKALINE PHOSPHATASE 96 U/L (45-117); BUN 14 mg/dl (7-24); CHLORIDE 110 mmol/L (98-107); LIPASE 402 U/L (73-393); SGOT/AST 23 IU/L (3-35); SGPT/ALT 20 U/L (12-78); SODIUM 141 mmol/L (136-145); TOTAL PROTEIN 6.9 gm/dL (6.4-8.2)
[2017-06-08 23:37] LABS: TROPONIN I < 0.015 ng/ml (<0.045)
[2017-06-09 00:40] VITALS: BP 127/90
--- NOTE | 2017-06-09 00:40 | NUR ---
A 56, admitted to , under the services of VINCENZO Serrano DO with a diagnosis of PANCREATITS. Chief complaint is SEVERE PAIN LEFT LOWER ABDOMEN RADIATING TO HER BACK. Patient arrived via stretcher from ER. Monitor applied. Initial assessment completed. Vital signs taken and recorded. VINCENZO SERRANO DO notified of admission to the unit. Orders received. See assessment for past medical history, medications and allergies. Patient and/or family oriented to unit. [facility] visitation policy reviewed. Clothing/patient valuable form completed. MICHELLE BAIRES
[2017-06-09 00:48] LABS: BASO # 0.1 10*3/uL (0.0-0.1); BASO % 0.8 % (0.0-1.0); EOS # 0.3 10*3/uL (0.0-0.4); EOS % 2.7 % (1.0-4.0); HEMATOCRIT 44.3 % (37.0-47.0); HEMOGLOBIN 14.7 g/dl (12.0-16.0); LYMPH # 3.3 10*3/uL (1.3-4.4); LYMPH % 32.1 % (27.0-41.0); MEAN CELL VOLUME 89.9 fl (81.0-99.0); MEAN CORPUSCULAR HGB 29.8 pg (27.0-31.0); MEAN CORPUSCULAR HGB CONC 33.2 g/dl (33.0-37.0); MEAN PLATELET VOLUME 9.5 fl (9.6-12.3); MONO # 0.7 10*3/uL (0.1-1.0); MONO % 6.4 % (3.0-9.0); NEUT % 57.3 % (47.0-73.0); PLATELET COUNT AUTOMATED 292 10*3/uL (130-400); RED BLOOD COUNT 4.93 10*6/uL (4.10-5.10); RED CELL DISTRI WIDTH 15.3 % (0-14.5); WHITE BLOOD COUNT 10.4 10*3/uL (4.8-10.8)
--- NOTE | 2017-06-09 01:39 | NUR ---
CALLED DR. MARTINEZ PER PT'S REQUEST FOR ICE CHIPS.
--- NOTE | 2017-06-09 01:45 | NUR ---
NEW ORDERS RECEIVED FOR A CLEAR LIQUID DIET, NUBAIN & PHENERGAN.
--- NOTE | 2017-06-09 05:15 | NUR ---
PT. C/O BEING ANXIOUS & REQUESTING HER PAXIL.
--- NOTE | 2017-06-09 05:20 | NUR ---
CALLED DR. MARTINEZ; NEW ORDER RECEIVED FOR ATIVAN.
--- NOTE | 2017-06-09 05:52 | NUR ---
MEDICATED WITH ATIVAN 1 MG PO FOR C/O ANXIETY.
[2017-06-09 06:32] LABS: BASO # 0.1 10*3/uL (0.0-0.1); BASO % 0.6 % (0.0-1.0); EOS # 0.3 10*3/uL (0.0-0.4); EOS % 3.8 % (1.0-4.0); HEMATOCRIT 42.7 % (37.0-47.0); HEMOGLOBIN 13.8 g/dl (12.0-16.0); LYMPH # 3.4 10*3/uL (1.3-4.4); LYMPH % 41.2 % (27.0-41.0); MEAN CELL VOLUME 90.5 fl (81.0-99.0); MEAN CORPUSCULAR HGB 29.2 pg (27.0-31.0); MEAN CORPUSCULAR HGB CONC 32.3 g/dl (33.0-37.0); MEAN PLATELET VOLUME 9.5 fl (9.6-12.3); MONO # 0.6 10*3/uL (0.1-1.0); MONO % 6.9 % (3.0-9.0); NEUT # 3.9 10*3/uL (2.3-7.9); NEUT % 47.3 % (47.0-73.0); PLATELET COUNT AUTOMATED 298 10*3/uL (130-400); RED BLOOD COUNT 4.72 10*6/uL (4.10-5.10); RED CELL DISTRI WIDTH 15.4 % (0-14.5); WHITE BLOOD COUNT 8.2 10*3/uL (4.8-10.8)
[2017-06-09 06:43] LABS: ALBUMIN 3.2 gm/dl (3.1-4.5); ALKALINE PHOSPHATASE 98 U/L (45-117); BUN 11 mg/dl (7-24); CHLORIDE 111 mmol/L (98-107); CHOLESTEROL 200 mg/dL (<200); CREATININE 0.91 mg/dL (0.55-1.02); FREE T4 0.89 ng/dl (0.76-1.46); HDL CHOLESTEROL 41 mg/dl (40-60); LDL CHOLESTEROL 127 mg/dL (9-159); PHOSPHOROUS 3.7 mg/dL (2.5-4.9); POTASSIUM 4.1 mmol/L (3.5-5.1); SGOT/AST 17 IU/L (3-35); SGPT/ALT 18 U/L (12-78); SODIUM 143 mmol/L (136-145); TRIGLYCERIDES 158 mg/dl (<150); VLDL CHOLESTEROL 32 mg/dL (6-40)
[2017-06-09 06:48] LABS: THYROID STIM HORMONE (HS) 0.935 uIU/ml (0.358-4.75)
[2017-06-09 07:00] LABS: ACT PARTIAL THROMBO TIME 27.4 SECONDS (20.8-31.5); INTERNATIONAL NORM RATIO 0.9 (2.0-3.5)
[2017-06-09 07:36] LABS: VITAMIN D, 25-HYDROXY 37.9 ng/mL (30-100)
[2017-06-09 08:00] VITALS: BP 102/82
--- NOTE | 2017-06-09 10:13 | NUR ---
DR. STEVENSON NOTIFIED PER PATIENT REQUEST FOR SOMETHING FOR ABDOMINAL PAIN.
--- NOTE | 2017-06-09 10:43 | NUR ---
TRAMADOL GIVEN FOR ABDOMINAL PAIN 05/07. PATIENT IS COMPLAINING THAT HER PAIN IS NOT BEING MANAGED PROPERLY. WILL CONTINUE TO MONITOR.
--- NOTE | 2017-06-09 11:26 | NUR ---
PATIENT STATED THAT THE ULTRAM DID ABSOLUTELY NOTHING FOR THE PAIN. SHE WANTS TO KNOW WHY SHE CAN'T HAVE THE NUBAIN. RELAYED MESSAGE TO DR. STEVENSON, HE SAID HE WILL CHECK INTO IT. NO NEW ORDERS AT THIS TIME.
[2017-06-09 12:00] VITALS: BP 139/81
--- NOTE | 2017-06-09 12:18 | NUR ---
NUBAIN GIVEN FOR C/O LUQ ABDOMINAL PAIN RATED 9/10. WILL
--- NOTE | 2017-06-09 13:00 | NUR ---
NARBAIN EFFECTIVE. PATIENT HAS NO C/O RUQ ABDOMINAL PAIN. PATIENT SATISFIED.
[2017-06-09] MEDS ORDERED: Percocet 325 MG1 TAB PO (13:51)
--- NOTE | 2017-06-09 14:37 | NUR ---
Discharge instructions reviewed with patient/family. Patient receptive and verbalizes understanding. Follow-up care arranged. Written instructions given to patient/family. Patient was escorted from unit in a wheelchair with her and all personal belongings. ARTI CHAN
== END 2017-06-09 14:37 | disposition home or self-care (01) | DRG 440 ==
LOC: ED 20:40 → EDHOLD 23:18 → 4E 23:30
PROVIDERS: Emergency Medicine Emergency Medical Services; Hospitalist; ADMIT Internal Medicine
DX: K85.90 Acute pancreatitis without necrosis or infection, unspecified (principal); E87.8 Other disorders of electrolyte and fluid balance, not elsewhere classified; E83.41 Hypermagnesemia; K86.1 Other chronic pancreatitis; M79.7 Fibromyalgia; K21.9 Gastro-esophageal reflux disease without esophagitis; K58.9 Irritable bowel syndrome, unspecified; J43.9 Emphysema, unspecified; F41.9 Anxiety disorder, unspecified; E66.9 Obesity, unspecified; G43.909 Migraine, unspecified, not intractable, without status migrainosus; G89.29 Other chronic pain; M19.90 Unspecified osteoarthritis, unspecified site; R53.82 Chronic fatigue, unspecified; R73.03 Prediabetes; E78.5 Hyperlipidemia, unspecified; Z90.49 Acquired absence of other specified parts of digestive tract; Z98.51 Tubal ligation status; Z87.891 Personal history of nicotine dependence; Z82.49 Family history of ischemic heart disease and other diseases of the circulatory system; Z80.0 Family history of malignant neoplasm of digestive organs; Z88.5 Allergy status to narcotic agent; Z88.6 Allergy status to analgesic agent; Z88.1 Allergy status to other antibiotic agents; Z91.041 Radiographic dye allergy status; Z79.899 Other long term (current) drug therapy; Z91.09 Other allergy status, other than to drugs and biological substances; Z68.32 Body mass index [BMI] 32.0-32.9, adult

== ENCOUNTER 2017-07-10 05:40 | Emergency (ER) | payer OTHER ==
[~2017-07-10] VITALS: Ht 162.5 cm; Wt 81.6 kg
[2017-07-10 05:45] VITALS: BP 134/95
[2017-07-10] MEDS ORDERED: AUGMENTIN 875875 MG PO (06:04)
[2017-07-10] MEDS ORDERED: TESSALON PERLE100 M1 PO (06:04)
== END 2017-07-10 06:23 | disposition home or self-care (01) ==
LOC: ED 05:40
DX: J32.9 Chronic sinusitis, unspecified (principal); J40 Bronchitis, not specified as acute or chronic; J44.9 Chronic obstructive pulmonary disease, unspecified; G89.29 Other chronic pain; K21.9 Gastro-esophageal reflux disease without esophagitis; F41.9 Anxiety disorder, unspecified; M79.7 Fibromyalgia; R73.9 Hyperglycemia, unspecified; E78.00 Pure hypercholesterolemia, unspecified; G43.909 Migraine, unspecified, not intractable, without status migrainosus; Z68.34 Body mass index [BMI] 34.0-34.9, adult; Z90.49 Acquired absence of other specified parts of digestive tract; Z98.51 Tubal ligation status; Z87.891 Personal history of nicotine dependence; Z88.1 Allergy status to other antibiotic agents; Z91.041 Radiographic dye allergy status; Z88.5 Allergy status to narcotic agent; Z79.899 Other long term (current) drug therapy

== ENCOUNTER 2017-08-05 09:45 | Emergency (ER) | payer OTHER ==
[~2017-08-05] VITALS: Ht 162.5 cm; Wt 86.2 kg
[~2017-08-05 09:45] MED LIST changes: +AUGMENTIN 875875 MG PO; +TESSALON PERLE100 M1 PO
[2017-08-05 10:36] VITALS: BP 130/88
[2017-08-05 10:53] LABS: BASO # 0.1 10*3/uL (0.0-0.1); BASO % 0.8 % (0.0-1.0); EOS # 0.3 10*3/uL (0.0-0.4); LYMPH # 2.6 10*3/uL (1.3-4.4); LYMPH % 33.9 % (27.0-41.0); MEAN CELL VOLUME 90.5 fl (81.0-99.0); MEAN CORPUSCULAR HGB 30.2 pg (27.0-31.0); MEAN CORPUSCULAR HGB CONC 33.3 g/dl (33.0-37.0); MEAN PLATELET VOLUME 9.5 fl (9.6-12.3); MONO # 0.5 10*3/uL (0.1-1.0); MONO % 6.1 % (3.0-9.0); NEUT # 4.2 10*3/uL (2.3-7.9); NEUT % 55.1 % (47.0-73.0); PLATELET COUNT AUTOMATED 241 10*3/uL (130-400); RED BLOOD COUNT 4.97 10*6/uL (4.10-5.10); RED CELL DISTRI WIDTH 14.2 % (0-14.5); WHITE BLOOD COUNT 7.7 10*3/uL (4.8-10.8)
[2017-08-05 11:02] LABS: ACT PARTIAL THROMBO TIME 26.2 SECONDS (20.8-31.5); INTERNATIONAL NORM RATIO 0.9 (2.0-3.5)
[2017-08-05 11:12] LABS: LIPASE 383 U/L (73-393)
[2017-08-05 11:14] LABS: ALBUMIN 3.4 gm/dl (3.1-4.5); ALKALINE PHOSPHATASE 88 U/L (45-117); BUN 12 mg/dl (7-24); CHLORIDE 109 mmol/L (98-107); POTASSIUM 4.3 mmol/L (3.5-5.1); SGOT/AST 25 IU/L (3-35); SGPT/ALT 18 U/L (12-78); SODIUM 140 mmol/L (136-145); TOTAL PROTEIN 7.2 gm/dL (6.4-8.2)
[2017-08-05 11:16] LABS: TROPONIN I < 0.015 ng/ml (<0.045)
== END 2017-08-05 12:29 | disposition left against medical advice (07) ==
LOC: ED 09:45
PROVIDERS: Emergency Medicine
DX: R07.89 Other chest pain (principal); R10.9 Unspecified abdominal pain; J44.9 Chronic obstructive pulmonary disease, unspecified; R11.0 Nausea; J45.909 Unspecified asthma, uncomplicated; K21.9 Gastro-esophageal reflux disease without esophagitis; G43.909 Migraine, unspecified, not intractable, without status migrainosus; E66.9 Obesity, unspecified; Z68.34 Body mass index [BMI] 34.0-34.9, adult; Z88.6 Allergy status to analgesic agent; Z88.1 Allergy status to other antibiotic agents; Z91.041 Radiographic dye allergy status; Z79.899 Other long term (current) drug therapy; Z90.49 Acquired absence of other specified parts of digestive tract; Z87.891 Personal history of nicotine dependence

== ENCOUNTER 2017-08-11 06:25 | Inpatient (IN) | payer OTHER ==
[~2017-08-11] VITALS: Ht 157.4 cm; Wt 81.6 kg
[2017-08-11] VITALS (8 sets, daily range): BP systolic 105–166; BP diastolic 60–88
--- NOTE | ~2017-08-11 | CON ---
[place], [place] REPORT OF CONSULTATION [id number] UNIT #: [id number] ROOM: 507 DOCTOR: DANNY LINDQUIST MD BIRTHDATE: [birth year] DOS: 08/11/2017 REASON FOR CONSULTATION: Chest pain. HISTORY OF PRESENT ILLNESS: The patient is a 56-year-old woman who has no personal history of heart disease, although she has had episodic chest pain in the past. She did have a pharmacologic stress test 04/16/2016, which showed ejection fraction of 70%. There was normal wall motion and normal perfusion. She states that for the last year she has had episodes of chest pain. She describes a sharp left parasternal pain, which can radiate into her arm or jaw. It can come on at rest, while driving, or with mild exertion. It can last up to an hour and then wax and wane. There is nothing that she can do that brings on the pain or relieves it. It is not related necessarily to exertion, food, etc. Last evening, she was watching television at about 10:30 in the evening when she felt briefly lightheaded. She had the feeling that she was going to pass out. This passed, but recurred, but again passed on its own, after that she developed a sharp pain in her left parasternal region that radiated into her shoulder and jaw. It was associated with shortness of breath, diaphoresis and nausea, but there was no syncope. It lasted about an hour before it resolved spontaneously. Then, waxed and waned through the night. She finally came into the emergency room this morning around 6:00, 7-8 hours after the pain began. She had no acute EKG changes and a series of troponin levels have all been normal. PAST MEDICAL HISTORY: Includes 1. Fibromyalgia and chronic fatigue syndrome. 2. History of cigarette abuse and obstructive lung disease. The patient has been abstinent of cigarettes for 2 years. 3. Atypical chest pain. 4. Lexiscan pharmacologic stress test 04/16/2016, 70% ejection fraction, normal perfusion, low risk exam. 5. Obesity. 6. History of pancreatitis. 7. Status post appendectomy, cholecystectomy, tubal ligation and back surgery. 8. History of gastritis. FAMILY HISTORY: The patient's mother had a valve replacement in her 50s. She in her 60s of esophageal cancer. Her grandmother had a heart attack in her 80s. REVIEW OF SYSTEMS: The patient denies diplopia, loss of vision, or focal weakness. She denies syncope, although she did feel lightheaded. She denies vomiting, although she did have nausea. She did have dyspnea and diaphoresis. She denied hemoptysis or hematemesis. She denies any recent respiratory symptoms and specifically denies cough or hemoptysis. She denies any change in bowel or bladder habits and denies diarrhea or blood in her stools. She denies any blood in her urine. She denies any recent weight change. She has not had any peripheral edema. She does admit that she had a blood clot in her legs when she was in her 20s, but not recently. She denies any leg swelling. She has not [place], [place] REPORT OF CONSULTATION NAME: JODIE MCINTOSH UNIT #: [id number] ROOM: 507 DOCTOR: DANNY LINDQUIST MD BIRTHDATE: [birth year] had heat or cold intolerance and denies polydipsia or polyuria. She denies any skin rashes. The remainder of the review of systems is negative except as noted above. SOCIAL HISTORY: The patient is . She was a smoker, but quit 2 years ago. She does not consume alcohol. PHYSICAL EXAMINATION: GENERAL: The patient is an overweight white female who is awake, alert and oriented. VITAL SIGNS: Pulse is 82 and regular, blood pressure is 105/60. She is afebrile. She weighs 81.6 kg and has a body mass index of 33. HEENT: Normocephalic and atraumatic. Extraocular muscles are intact. Sclerae are clear. Pupils are equal, round and react to light. The oral mucosa is moist. Tongue is midline. NECK: Supple. She has no jugular distention. Carotids are full. I heard no bruits. She had no neck or supraclavicular masses and no thyromegaly. LUNGS: Respirations were unlabored. Her chest was clear to auscultation and percussion. There was no presacral edema or chest wall tenderness. I could not reproduce her pain by palpation of her chest, shoulders and neck. CARDIOVASCULAR: Her heart had a regular rhythm with a soft S4 gallop, but no S3 or murmur. The PMI was not displaced. There was no precordial heave, lift or thrill and no rub. ABDOMEN: Soft and normally active without masses, organomegaly or bruits. EXTREMITIES: Showed no clubbing, cyanosis or edema. Peripheral pulses were easily palpated bilaterally. She had no Homans sign. There were no palpable cords. LABORATORY DATA: I reviewed her electrocardiogram today showed sinus rhythm with nonspecific ST changes and poor precordial R-wave progression. There were no acute ST changes. Serial troponin levels were negative times 4. Sodium is 139, potassium 4.1, chloride 106, BUN 13, creatinine 1.02. Sugar was slightly high at 119. INR 0.9, hemoglobin is 15.1 with hematocrit 44.7. There are 10,000 white cells and 241,000 platelets present. IMPRESSIONS: 1. Recurrent chest pain, which has been present for over a year. The symptoms are somewhat atypical and her exam and electrocardiogram are unremarkable. The fact that she had pain off and on for several hours in the last 24 hours and still has normal troponin levels would indicate that this is very unlikely to be due to an acute myocardial event. She does have a history of deep venous thrombosis and therefore, we will check a D-dimer, but if that is negative, I would not pursue that any further. 2. History of cigarette abuse. 3. History of chronic obstructive pulmonary disease. 4. Obesity. 5. History of gastritis. [place], [place] REPORT OF CONSULTATION NAME: JODIE MCINTOSH UNIT #: [id number] ROOM: 507 DOCTOR: DANNY LINDQUIST MD BIRTHDATE: [birth year] PLAN: We will continue to monitor her in the hospital. If her D-dimer is negative, then we will plan on a pharmacologic stress test in the next 24 hours. Further recommendations will depend upon the results of that testing. For now, however, it would appear as though her pains are not cardiac in origin. I thank the hospitalist physicians for asking our advice regarding her care. DANNY LINDQUIST MD CM:CONSTR:REPORT OF CONSULTATION 1701 08/11/17 2245 interface
--- NOTE | ~2017-08-11 | PR ---
[place], [place] PROGRESS NOTE NAME: JODIE MCINTOSH [facility] #: [id number] UNIT #: [id number] ROOM: 507 DOCTOR: DANNY LINDQUIST MD BIRTHDATE: [birth year] DOS: 08/12/2017 SUBJECTIVE: The patient was seen today in the Cardiology Department prior to her stress test on 08/12/2017. She has felt well overnight and denies any chest pain at this time. Through the night, we did observe her monitor and obtained a D-dimer. It was at the upper limits of normal, but did not indicate the presence of significant thrombus. PHYSICAL EXAMINATION: VITAL SIGNS: Today, her pulse is 77 and regular, blood pressure 125/63. She is afebrile. She weighs 81.6 kg and has a body mass index of 33. NECK: Supple. She has no jugular distention. Carotids are full. I heard no bruits. She had no neck or supraclavicular masses, no thyromegaly. LUNGS: Respirations are unlabored. Her chest is clear to auscultation and percussion. She has a few wheezes at the bases, but otherwise no adventitious sounds. HEART: Has a regular rhythm with an S4 gallop and no S3 or murmur. The PMI is not displaced. ABDOMEN: Soft and normally active. EXTREMITIES: Showed no edema. IMPRESSION: 1. Atypical chest pain. 2. History of cigarette abuse. 3. History of chronic obstructive pulmonary disease. 4. Obesity. 5. History of gastritis. PLAN: We will proceed with a pharmacologic stress test today. Further recommendations will depend upon the results of the stress test. DANNY LINDQUIST MD CM:PNTRANS [id number] DANNY LINDQUIST MD 08/12/172041 interface
[2017-08-11] MEDS ORDERED: PANTOPRAZOLE SO40 MG PO (07:06)
[2017-08-11] MEDS ORDERED: DEBROX 15 ML 1515 ML OT (07:06)
[2017-08-11] MEDS ORDERED: IBUPROFEN400 MG PO (07:07)
[2017-08-11] MEDS ORDERED: PROVENTIL HFA6.7 GM INH (07:07)
[2017-08-11 07:29] LABS: BASO # 0.1 10*3/uL (0.0-0.1); BASO % 0.5 % (0.0-1.0); EOS # 0.4 10*3/uL (0.0-0.4); EOS % 3.8 % (1.0-4.0); HEMATOCRIT 44.7 % (37.0-47.0); HEMOGLOBIN 15.1 g/dl (12.0-16.0); LYMPH # 3.9 10*3/uL (1.3-4.4); LYMPH % 38.5 % (27.0-41.0); MEAN CELL VOLUME 89.6 fl (81.0-99.0); MEAN CORPUSCULAR HGB 30.3 pg (27.0-31.0); MEAN CORPUSCULAR HGB CONC 33.8 g/dl (33.0-37.0); MEAN PLATELET VOLUME 9.4 fl (9.6-12.3); MONO # 0.7 10*3/uL (0.1-1.0); MONO % 6.8 % (3.0-9.0); NEUT % 50.2 % (47.0-73.0); PLATELET COUNT AUTOMATED 241 10*3/uL (130-400); RED BLOOD COUNT 4.99 10*6/uL (4.10-5.10); RED CELL DISTRI WIDTH 13.8 % (0-14.5)
[2017-08-11 07:37] LABS: ACT PARTIAL THROMBO TIME 26.4 SECONDS (20.8-31.5); INTERNATIONAL NORM RATIO 0.9 (2.0-3.5)
[2017-08-11 07:49] LABS: ALBUMIN 3.6 gm/dl (3.1-4.5); ALKALINE PHOSPHATASE 92 U/L (45-117); BUN 13 mg/dl (7-24); CHLORIDE 106 mmol/L (98-107); CREATININE 1.02 mg/dL (0.55-1.02); POTASSIUM 4.1 mmol/L (3.5-5.1); SGOT/AST 24 IU/L (3-35); SGPT/ALT 19 U/L (12-78); SODIUM 139 mmol/L (136-145); TOTAL PROTEIN 7.3 gm/dL (6.4-8.2)
[2017-08-11 07:50] LABS: TROPONIN I < 0.015 ng/ml (<0.045)
[2017-08-11] MEDS ORDERED: AUGMENTIN 875-875 MG PO (11:01)
[2017-08-12] VITALS: BP 111/72
[2017-08-12 07:18] LABS: BASO # 0.1 10*3/uL (0.0-0.1); BASO % 0.7 % (0.0-1.0); EOS # 0.4 10*3/uL (0.0-0.4); HEMATOCRIT 44.7 % (37.0-47.0); HEMOGLOBIN 14.7 g/dl (12.0-16.0); LYMPH # 3.5 10*3/uL (1.3-4.4); LYMPH % 46.3 % (27.0-41.0); MEAN CORPUSCULAR HGB 29.9 pg (27.0-31.0); MEAN CORPUSCULAR HGB CONC 32.9 g/dl (33.0-37.0); MEAN PLATELET VOLUME 9.5 fl (9.6-12.3); MONO # 0.5 10*3/uL (0.1-1.0); NEUT # 3.1 10*3/uL (2.3-7.9); NEUT % 40.9 % (47.0-73.0); PLATELET COUNT AUTOMATED 241 10*3/uL (130-400); RED BLOOD COUNT 4.91 10*6/uL (4.10-5.10); RED CELL DISTRI WIDTH 14.1 % (0-14.5); WHITE BLOOD COUNT 7.6 10*3/uL (4.8-10.8)
[2017-08-12 07:36] LABS: BUN 15 mg/dl (7-24); CHLORIDE 106 mmol/L (98-107); CHOLESTEROL 183 mg/dL (<200); CREATININE 0.98 mg/dL (0.55-1.02); PHOSPHOROUS 3.4 mg/dL (2.5-4.9); POTASSIUM 4.2 mmol/L (3.5-5.1); SODIUM 140 mmol/L (136-145); TRIGLYCERIDES 295 mg/dl (<150); VLDL CHOLESTEROL 59 mg/dL (6-40)
[2017-08-12 07:46] LABS: FREE T4 0.86 ng/dl (0.76-1.46); HDL CHOLESTEROL 41 mg/dl (40-60); LDL CHOLESTEROL 83 mg/dL (9-159)
[2017-08-12 08:00] VITALS: BP 125/63
[2017-08-12 09:02] LABS: VITAMIN D, 25-HYDROXY 23.7 ng/mL (30-100)
[2017-08-12 13:00] VITALS: BP 131/70
[2017-08-12 16:00] VITALS: BP 114/63
== END 2017-08-12 18:07 | disposition home or self-care (01) | DRG 392 ==
LOC: ED 06:25 → EDHOLD 08:00 → 5E 08:00
PROVIDERS: Emergency Medicine Emergency Medical Services; Student in an Organized Health Care Education/Training Program
PROC: 4A02XM4 Measurement of Cardiac Total Activity, External Approach (ICD-10-PCS; principal; 2017-08-12)
PROC: 3E073KZ Introduction of Other Diagnostic Substance into Coronary Artery, Percutaneous Approach (ICD-10-PCS; 2017-08-12)
DX: K21.9 Gastro-esophageal reflux disease without esophagitis (principal); E83.41 Hypermagnesemia; K86.1 Other chronic pancreatitis; R09.1 Pleurisy; M94.0 Chondrocostal junction syndrome [Tietze]; F41.9 Anxiety disorder, unspecified; R00.0 Tachycardia, unspecified; R06.82 Tachypnea, not elsewhere classified; R73.9 Hyperglycemia, unspecified; G43.909 Migraine, unspecified, not intractable, without status migrainosus; J44.9 Chronic obstructive pulmonary disease, unspecified; M19.90 Unspecified osteoarthritis, unspecified site; J45.909 Unspecified asthma, uncomplicated; R53.82 Chronic fatigue, unspecified; E66.9 Obesity, unspecified; M79.7 Fibromyalgia; Z87.891 Personal history of nicotine dependence; Z90.49 Acquired absence of other specified parts of digestive tract; Z87.19 Personal history of other diseases of the digestive system; Z80.0 Family history of malignant neoplasm of digestive organs; Z68.32 Body mass index [BMI] 32.0-32.9, adult; Z82.49 Family history of ischemic heart disease and other diseases of the circulatory system; Z98.51 Tubal ligation status; Z88.1 Allergy status to other antibiotic agents; Z88.6 Allergy status to analgesic agent; Z91.041 Radiographic dye allergy status; Z79.51 Long term (current) use of inhaled steroids; Z79.1 Long term (current) use of non-steroidal anti-inflammatories (NSAID); Z79.899 Other long term (current) drug therapy; Z88.5 Allergy status to narcotic agent

== ENCOUNTER → 2017-08-22 | Outpatient (CLI) | payer OTHER ==
[~2017-08-22] MED LIST changes: +AUGMENTIN 875-875 MG PO; +DEBROX 15 ML 1515 ML OT; +IBUPROFEN400 MG PO; +PANTOPRAZOLE SO40 MG PO; +PROVENTIL HFA6.7 GM INH
== END | disposition home or self-care (01) ==
LOC: RAD 15:26
DX: M54.5 Low back pain (principal); M54.6 Pain in thoracic spine

== ENCOUNTER 2017-08-31 03:55 | Emergency (ER) | payer OTHER ==
[~2017-08-31] VITALS: Ht 162.5 cm; Wt 84.8 kg
[2017-08-31] MEDS ORDERED: METFORMIN HCL500 MG PO (04:06)
[2017-08-31] MEDS ORDERED: CREON PO (04:06)
[2017-08-31 04:54] LABS: BASO # 0.1 10*3/uL (0.0-0.1); BASO % 0.5 % (0.0-1.0); EOS # 0.3 10*3/uL (0.0-0.4); EOS % 3.4 % (1.0-4.0); HEMOGLOBIN 14.8 g/dl (12.0-16.0); LYMPH # 3.5 10*3/uL (1.3-4.4); LYMPH % 38.3 % (27.0-41.0); MEAN CELL VOLUME 90.7 fl (81.0-99.0); MEAN CORPUSCULAR HGB 29.8 pg (27.0-31.0); MEAN CORPUSCULAR HGB CONC 32.9 g/dl (33.0-37.0); MEAN PLATELET VOLUME 9.6 fl (9.6-12.3); MONO # 0.8 10*3/uL (0.1-1.0); NEUT # 4.5 10*3/uL (2.3-7.9); NEUT % 48.6 % (47.0-73.0); PLATELET COUNT AUTOMATED 246 10*3/uL (130-400); RED BLOOD COUNT 4.96 10*6/uL (4.10-5.10); RED CELL DISTRI WIDTH 13.6 % (0-14.5); WHITE BLOOD COUNT 9.2 10*3/uL (4.8-10.8)
[2017-08-31 05:08] LABS: BILIRUBIN NEGATIVE (NEGATIVE); BLOOD 1+ (NEGATIVE); CLARITY CLEAR (CLEAR); COLOR YELLOW (YELLOW); GLUCOSE NEGATIVE (NEGATIVE); KETONE NEGATIVE (NEGATIVE); LEUKO ESTERASE NEGATIVE (NEGATIVE); NITRITE NEGATIVE (NEGATIVE); PH 6.5 (5.0-9.0); SPECIFIC GRAVITY <= 1.005 (1.005-1.030); UROBILINOGEN 0.2 E.U./dl (0.2-1.0)
[2017-08-31 05:10] LABS: ALBUMIN 3.4 gm/dl (3.1-4.5); ALKALINE PHOSPHATASE 87 U/L (45-117); BUN 14 mg/dl (7-24); CHLORIDE 103 mmol/L (98-107); CREATININE 0.92 mg/dL (0.55-1.02); LIPASE 353 U/L (73-393); POTASSIUM 4.1 mmol/L (3.5-5.1); SGOT/AST 14 IU/L (3-35); SGPT/ALT 16 U/L (12-78); SODIUM 139 mmol/L (136-145); TOTAL PROTEIN 7.2 gm/dL (6.4-8.2)
[2017-08-31 05:14] LABS: WBC 0-2 wbc/hpf (0-5)
[2017-08-31 09:00] VITALS: BP 106/60
== END 2017-08-31 09:50 | disposition home or self-care (01) ==
LOC: ED 03:55
PROVIDERS: Emergency Medicine
DX: R10.12 Left upper quadrant pain (principal); R19.7 Diarrhea, unspecified; R11.10 Vomiting, unspecified; J44.9 Chronic obstructive pulmonary disease, unspecified; K21.9 Gastro-esophageal reflux disease without esophagitis; E66.01 Morbid (severe) obesity due to excess calories; Z88.1 Allergy status to other antibiotic agents; Z88.6 Allergy status to analgesic agent; Z91.041 Radiographic dye allergy status; Z79.899 Other long term (current) drug therapy; Z68.34 Body mass index [BMI] 34.0-34.9, adult; Z87.891 Personal history of nicotine dependence

== ENCOUNTER 2017-09-04 01:48 | Emergency (ER) | payer OTHER ==
[~2017-09-04] VITALS: Ht 162.5 cm; Wt 84.8 kg
[~2017-09-04 01:48] MED LIST changes: +CREON PO; +METFORMIN HCL500 MG PO
[2017-09-04 02:21] LABS: BASO # 0.1 10*3/uL (0.0-0.1); BASO % 0.7 % (0.0-1.0); EOS # 0.4 10*3/uL (0.0-0.4); EOS % 3.1 % (1.0-4.0); HEMATOCRIT 45.4 % (37.0-47.0); HEMOGLOBIN 15.2 g/dl (12.0-16.0); LYMPH # 4.8 10*3/uL (1.3-4.4); LYMPH % 39.5 % (27.0-41.0); MEAN CELL VOLUME 89.2 fl (81.0-99.0); MEAN CORPUSCULAR HGB 29.9 pg (27.0-31.0); MEAN CORPUSCULAR HGB CONC 33.5 g/dl (33.0-37.0); MEAN PLATELET VOLUME 9.4 fl (9.6-12.3); MONO # 0.5 10*3/uL (0.1-1.0); MONO % 4.3 % (3.0-9.0); NEUT # 6.4 10*3/uL (2.3-7.9); NEUT % 52.2 % (47.0-73.0); PLATELET COUNT AUTOMATED 252 10*3/uL (130-400); RED BLOOD COUNT 5.09 10*6/uL (4.10-5.10); RED CELL DISTRI WIDTH 13.3 % (0-14.5); WHITE BLOOD COUNT 12.3 10*3/uL (4.8-10.8)
[2017-09-04 02:53] LABS: ALBUMIN 3.6 gm/dl (3.1-4.5); ALKALINE PHOSPHATASE 96 U/L (45-117); BUN 15 mg/dl (7-24); CHLORIDE 109 mmol/L (98-107); CREATININE 1.01 mg/dL (0.55-1.02); LIPASE 403 U/L (73-393); SGOT/AST 19 IU/L (3-35); SGPT/ALT 20 U/L (12-78); SODIUM 141 mmol/L (136-145); TOTAL PROTEIN 7.3 gm/dL (6.4-8.2)
[2017-09-04 04:27] VITALS: BP 154/77
== END 2017-09-04 05:14 | disposition home or self-care (01) ==
LOC: ED 01:48
PROVIDERS: Emergency Medicine Emergency Medical Services
DX: K86.1 Other chronic pancreatitis (principal); Z88.1 Allergy status to other antibiotic agents; Z88.6 Allergy status to analgesic agent; Z91.041 Radiographic dye allergy status; Z79.899 Other long term (current) drug therapy; Z87.891 Personal history of nicotine dependence

== ENCOUNTER 2017-09-18 01:06 | Emergency (ER) | payer OTHER ==
[~2017-09-18] VITALS: Ht 162.5 cm; Wt 86.2 kg
[2017-09-18 01:36] VITALS: BP 148/76
== END 2017-09-18 01:50 | disposition left against medical advice (07) ==
LOC: ED 01:06
DX: R07.9 Chest pain, unspecified (principal); G89.29 Other chronic pain; J44.9 Chronic obstructive pulmonary disease, unspecified; K21.9 Gastro-esophageal reflux disease without esophagitis; M79.7 Fibromyalgia; G43.909 Migraine, unspecified, not intractable, without status migrainosus; E66.9 Obesity, unspecified; Z68.34 Body mass index [BMI] 34.0-34.9, adult; Z90.49 Acquired absence of other specified parts of digestive tract; Z98.890 Other specified postprocedural states; Z87.891 Personal history of nicotine dependence; Z98.51 Tubal ligation status; Z88.1 Allergy status to other antibiotic agents; Z88.5 Allergy status to narcotic agent; Z91.041 Radiographic dye allergy status; Z88.8 Allergy status to other drugs, medicaments and biological substances; Z79.899 Other long term (current) drug therapy; Z53.21 Procedure and treatment not carried out due to patient leaving prior to being seen by health care provider

== ENCOUNTER 2017-09-27 01:39 | Emergency (ER) | payer OTHER ==
[~2017-09-27] VITALS: Ht 162.5 cm; Wt 85.7 kg
[2017-09-27 02:28] LABS: BASO # 0.1 10*3/uL (0.0-0.1); BASO % 0.5 % (0.0-1.0); EOS # 0.3 10*3/uL (0.0-0.4); EOS % 2.2 % (1.0-4.0); HEMOGLOBIN 16.2 g/dl (12.0-16.0); LYMPH % 32.6 % (27.0-41.0); MEAN CELL VOLUME 90.1 fl (81.0-99.0); MEAN CORPUSCULAR HGB 29.8 pg (27.0-31.0); MEAN CORPUSCULAR HGB CONC 33.1 g/dl (33.0-37.0); MEAN PLATELET VOLUME 9.4 fl (9.6-12.3); MONO # 0.8 10*3/uL (0.1-1.0); MONO % 6.2 % (3.0-9.0); NEUT # 7.1 10*3/uL (2.3-7.9); NEUT % 58.2 % (47.0-73.0); PLATELET COUNT AUTOMATED 232 10*3/uL (130-400); RED BLOOD COUNT 5.44 10*6/uL (4.10-5.10); RED CELL DISTRI WIDTH 13.8 % (0-14.5); WHITE BLOOD COUNT 12.2 10*3/uL (4.8-10.8)
[2017-09-27 02:39] LABS: BILIRUBIN NEGATIVE (NEGATIVE); BLOOD 3+ (NEGATIVE); CLARITY SL CLOUDY (CLEAR); COLOR YELLOW (YELLOW); GLUCOSE NEGATIVE (NEGATIVE); KETONE NEGATIVE (NEGATIVE); LEUKO ESTERASE 3+ (NEGATIVE); NITRITE NEGATIVE (NEGATIVE); PH 6.5 (5.0-9.0); SPECIFIC GRAVITY <= 1.005 (1.005-1.030); UROBILINOGEN 0.2 E.U./dl (0.2-1.0)
[2017-09-27 02:49] LABS: ALBUMIN 3.7 gm/dl (3.1-4.5); CREATININE 1.17 mg/dL (0.55-1.02); POTASSIUM 4.1 mmol/L (3.5-5.1); TOTAL PROTEIN 7.7 gm/dL (6.4-8.2)
[2017-09-27 02:49] LABS: WBC 41-50 wbc/hpf (0-5)
[2017-09-27 02:50] LABS: BACTERIA 1+; RBC 31-40 rbc/hpf (0-2)
[2017-09-27 03:25] VITALS: BP 143/85
[2017-09-27] MEDS ORDERED: MACROBID100 M1 PO (04:34)
[2017-09-27] MEDS ORDERED: PYRIDIUM200 M1 PO (04:34)
== END 2017-09-27 04:59 | disposition home or self-care (01) ==
LOC: ED 01:39
PROVIDERS: Emergency Medicine
DX: N39.0 Urinary tract infection, site not specified (principal); F41.9 Anxiety disorder, unspecified; J45.909 Unspecified asthma, uncomplicated; J44.9 Chronic obstructive pulmonary disease, unspecified; K21.9 Gastro-esophageal reflux disease without esophagitis; M79.7 Fibromyalgia; G89.29 Other chronic pain; Z68.34 Body mass index [BMI] 34.0-34.9, adult; G43.909 Migraine, unspecified, not intractable, without status migrainosus; R73.9 Hyperglycemia, unspecified; E83.41 Hypermagnesemia; Z88.1 Allergy status to other antibiotic agents; Z88.6 Allergy status to analgesic agent; Z91.041 Radiographic dye allergy status; Z88.5 Allergy status to narcotic agent; Z79.899 Other long term (current) drug therapy; Z90.49 Acquired absence of other specified parts of digestive tract

== ENCOUNTER 2017-11-16 20:32 | Emergency (ER) | payer OTHER ==
[~2017-11-16] VITALS: Ht 162.5 cm; Wt 85.7 kg
[~2017-11-16 20:32] MED LIST changes: +MACROBID100 M1 PO; +PYRIDIUM200 M1 PO
[2017-11-16 20:34] VITALS: BP 147/77
[2017-11-16] MEDS ORDERED: NAPROSYN500 MG PO (21:48)
[2017-11-16] MEDS ORDERED: CYCLOBENZAPRINE10 MG PO (21:48)
[2017-11-17] MEDS ORDERED: CREON PO (14:17)
== END 2017-11-16 21:48 | disposition home or self-care (01) ==
LOC: ED 20:32
DX: S16.1XXA Strain of muscle, fascia and tendon at neck level, initial encounter (principal); Z88.1 Allergy status to other antibiotic agents; Z88.6 Allergy status to analgesic agent; Z91.041 Radiographic dye allergy status; Z79.899 Other long term (current) drug therapy; Z87.891 Personal history of nicotine dependence; X58.XXXA Exposure to other specified factors, initial encounter; Y93.89 Activity, other specified; Y92.89 Other specified places as the place of occurrence of the external cause; Y99.8 Other external cause status

== ENCOUNTER 2017-11-17 05:40 | Inpatient (IN) | payer OTHER ==
[~2017-11-17] VITALS: Ht 162.5 cm; Wt 87.6 kg
[2017-11-17 05:46] VITALS: BP 134/87
[2017-11-17 06:18] LABS: HEMATOCRIT 44.3 % (37.0-47.0); HEMOGLOBIN 14.7 g/dl (12.0-16.0); MEAN CELL VOLUME 88.6 fl (81.0-99.0); MEAN CORPUSCULAR HGB 29.4 pg (27.0-31.0); MEAN CORPUSCULAR HGB CONC 33.2 g/dl (33.0-37.0); MEAN PLATELET VOLUME 9.2 fl (9.6-12.3); PLATELET COUNT AUTOMATED 303 10*3/uL (130-400); RED CELL DISTRI WIDTH 13.9 % (0-14.5); WHITE BLOOD COUNT 8.6 10*3/uL (4.8-10.8)
[2017-11-17 06:34] LABS: ALBUMIN 3.4 gm/dl (3.1-4.5); ALKALINE PHOSPHATASE 107 U/L (45-117); BUN 17 mg/dl (7-24); CHLORIDE 104 mmol/L (98-107); CREATININE 1.14 mg/dL (0.55-1.02); LIPASE 877 U/L (73-393); POTASSIUM 3.8 mmol/L (3.5-5.1); SGOT/AST 19 IU/L (3-35); SGPT/ALT 19 U/L (12-78); SODIUM 135 mmol/L (136-145); TOTAL PROTEIN 7.2 gm/dL (6.4-8.2)
[2017-11-17 06:34] LABS: URINE AMPHETAMINES < 1000 (1000ng/ml); URINE BARBITURATES < 200 (200ng/ml); URINE BENZODIAZEPINES < 200 (200ng/ml); URINE CANNABINOIDS (THC) < 50 (50ng/ml); URINE COCAINE < 300 (300ng/ml); URINE METHADONE < 300 (300ng/ml); URINE OPIATES > 300 (300ng/ml)
[2017-11-17 06:40] LABS: BILIRUBIN NEGATIVE (NEGATIVE); BLOOD TRACE-INTACT (NEGATIVE); CLARITY SL CLOUDY (CLEAR); COLOR YELLOW (YELLOW); GLUCOSE NEGATIVE (NEGATIVE); KETONE NEGATIVE (NEGATIVE); LEUKO ESTERASE NEGATIVE (NEGATIVE); NITRITE NEGATIVE (NEGATIVE); SPECIFIC GRAVITY >= 1.030 (1.005-1.030); UROBILINOGEN 0.2 E.U./dl (0.2-1.0)
[2017-11-17 06:45] LABS: ETHYL ALCOHOL < 3.0 mg/dl (<3)
[2017-11-17 06:45] LABS: URINE PHENCYCLIDINE < 25 (25ng/ml)
[2017-11-17 06:56] LABS: PLATELET SUFFICIENCY NORMAL (NORMAL); TOTAL CELLS COUNTED 100 #CELLS
[2017-11-17 07:04] LABS: BACTERIA 2+
[2017-11-17 07:53] VITALS: BP 109/72
[2017-11-17 08:10] VITALS: BP 129/67
[2017-11-17 12:00] VITALS: BP 126/73
[2017-11-17] MEDS ORDERED: CREON PO (14:17)
[2017-11-17 16:00] VITALS: BP 113/68
[2017-11-17 20:00] VITALS: BP 119/75
== END 2017-11-18 01:25 | disposition left against medical advice (07) | DRG 438 ==
LOC: ED 05:40 → EDHOLD 07:33 → 5E 07:33
PROVIDERS: Emergency Medicine Emergency Medical Services
DX: K85.90 Acute pancreatitis without necrosis or infection, unspecified (principal); N17.0 Acute kidney failure with tubular necrosis; E87.1 Hypo-osmolality and hyponatremia; E83.41 Hypermagnesemia; K21.9 Gastro-esophageal reflux disease without esophagitis; G43.919 Migraine, unspecified, intractable, without status migrainosus; K57.90 Diverticulosis of intestine, part unspecified, without perforation or abscess without bleeding; F41.9 Anxiety disorder, unspecified; M19.90 Unspecified osteoarthritis, unspecified site; K86.1 Other chronic pancreatitis; R53.82 Chronic fatigue, unspecified; M79.7 Fibromyalgia; K58.9 Irritable bowel syndrome, unspecified; R73.9 Hyperglycemia, unspecified; G89.29 Other chronic pain; R82.71 Bacteriuria; J43.9 Emphysema, unspecified; M43.10 Spondylolisthesis, site unspecified; E66.9 Obesity, unspecified; Z90.89 Acquired absence of other organs; Z90.49 Acquired absence of other specified parts of digestive tract; Z98.51 Tubal ligation status; Z87.891 Personal history of nicotine dependence; Z82.49 Family history of ischemic heart disease and other diseases of the circulatory system; Z80.8 Family history of malignant neoplasm of other organs or systems; Z88.2 Allergy status to sulfonamides; Z88.8 Allergy status to other drugs, medicaments and biological substances; Z88.1 Allergy status to other antibiotic agents; Z91.041 Radiographic dye allergy status; Z79.899 Other long term (current) drug therapy; Z91.09 Other allergy status, other than to drugs and biological substances; Z87.440 Personal history of urinary (tract) infections; Z83.3 Family history of diabetes mellitus; Z83.6 Family history of other diseases of the respiratory system; Z68.33 Body mass index [BMI] 33.0-33.9, adult

== ENCOUNTER 2018-01-01 16:45 | Emergency (ER) | payer OTHER ==
[~2018-01-01] VITALS: Ht 162.5 cm
[2018-01-01 16:45] VITALS: BP 103/80
[2018-01-01] MEDS ORDERED: PREDNISONE10 MG PO (17:17)
[2018-01-01] MEDS ORDERED: ROBAXIN500 M1 PO (17:17)
== END 2018-01-01 18:47 | disposition home or self-care (01) ==
LOC: ED 16:45
DX: S39.012A Strain of muscle, fascia and tendon of lower back, initial encounter (principal); Z87.891 Personal history of nicotine dependence; Z90.49 Acquired absence of other specified parts of digestive tract; Z98.890 Other specified postprocedural states; Z98.51 Tubal ligation status; Z79.899 Other long term (current) drug therapy; Z88.1 Allergy status to other antibiotic agents; Z88.5 Allergy status to narcotic agent; Z91.041 Radiographic dye allergy status; Z88.8 Allergy status to other drugs, medicaments and biological substances; X50.1XXA Overexertion from prolonged static or awkward postures, initial encounter; Y93.89 Activity, other specified; Y92.69 Other specified industrial and construction area as the place of occurrence of the external cause; Y99.9 Unspecified external cause status

== ENCOUNTER 2018-01-04 01:08 | Emergency (ER) | payer OTHER ==
[~2018-01-04] VITALS: Ht 162.5 cm; Wt 82.6 kg
[~2018-01-04 01:08] MED LIST changes: +PREDNISONE10 MG PO; +ROBAXIN500 M1 PO
[2018-01-04 01:09] VITALS: BP 188/97
[2018-01-04] MEDS ORDERED: PROTONIX40 MG PO (01:28)
[2018-01-04] MEDS ORDERED: AMOXICILLIN500 M2 PO (01:28)
== END 2018-01-04 01:31 | disposition home or self-care (01) ==
LOC: ED 01:08
DX: J02.9 Acute pharyngitis, unspecified (principal); K21.9 Gastro-esophageal reflux disease without esophagitis; F41.9 Anxiety disorder, unspecified; J44.9 Chronic obstructive pulmonary disease, unspecified; G89.29 Other chronic pain; E66.9 Obesity, unspecified; Z90.49 Acquired absence of other specified parts of digestive tract; Z98.51 Tubal ligation status; Z68.30 Body mass index [BMI] 30.0-30.9, adult; Z88.1 Allergy status to other antibiotic agents; Z88.2 Allergy status to sulfonamides; Z88.5 Allergy status to narcotic agent

== ENCOUNTER 2018-01-20 01:10 | Emergency (ER) | payer OTHER ==
[~2018-01-20] VITALS: Ht 167.6 cm; Wt 72.6 kg
[~2018-01-20 01:10] MED LIST changes: +AMOXICILLIN500 M2 PO; +PROTONIX40 MG PO
[2018-01-20 01:20] VITALS: BP 156/66
[2018-01-20 01:44] LABS: BASO # 0.1 10*3/uL (0.0-0.1); BASO % 0.8 % (0.0-1.0); EOS # 0.3 10*3/uL (0.0-0.4); EOS % 3.5 % (1.0-4.0); HEMATOCRIT 43.9 % (37.0-47.0); HEMOGLOBIN 14.4 g/dl (12.0-16.0); LYMPH # 3.8 10*3/uL (1.3-4.4); LYMPH % 38.7 % (27.0-41.0); MEAN CORPUSCULAR HGB 29.5 pg (27.0-31.0); MEAN CORPUSCULAR HGB CONC 32.8 g/dl (33.0-37.0); MEAN PLATELET VOLUME 9.5 fl (9.6-12.3); MONO # 0.7 10*3/uL (0.1-1.0); MONO % 6.7 % (3.0-9.0); NEUT # 4.9 10*3/uL (2.3-7.9); NEUT % 50.1 % (47.0-73.0); PLATELET COUNT AUTOMATED 276 10*3/uL (130-400); RED BLOOD COUNT 4.88 10*6/uL (4.10-5.10); RED CELL DISTRI WIDTH 14.6 % (0-14.5); WHITE BLOOD COUNT 9.8 10*3/uL (4.8-10.8)
[2018-01-20 02:01] LABS: ALBUMIN 3.3 gm/dl (3.1-4.5); ALKALINE PHOSPHATASE 82 U/L (45-117); BUN 10 mg/dl (7-24); CHLORIDE 110 mmol/L (98-107); CREATININE 1.03 mg/dL (0.55-1.02); LIPASE 372 U/L (73-393); SGOT/AST 30 IU/L (3-35); SGPT/ALT 22 U/L (12-78); SODIUM 144 mmol/L (136-145); TOTAL PROTEIN 6.9 gm/dL (6.4-8.2)
== END 2018-01-20 03:00 | disposition home or self-care (01) ==
LOC: ED 01:10
PROVIDERS: Student in an Organized Health Care Education/Training Program
DX: R10.12 Left upper quadrant pain (principal); R11.2 Nausea with vomiting, unspecified; R19.7 Diarrhea, unspecified; G89.29 Other chronic pain; J44.9 Chronic obstructive pulmonary disease, unspecified; K21.9 Gastro-esophageal reflux disease without esophagitis; J45.909 Unspecified asthma, uncomplicated; M19.90 Unspecified osteoarthritis, unspecified site; G43.909 Migraine, unspecified, not intractable, without status migrainosus; E66.9 Obesity, unspecified; Z68.34 Body mass index [BMI] 34.0-34.9, adult; Z98.890 Other specified postprocedural states; Z90.49 Acquired absence of other specified parts of digestive tract; Z87.891 Personal history of nicotine dependence; Z98.51 Tubal ligation status; Z79.899 Other long term (current) drug therapy; Z88.1 Allergy status to other antibiotic agents; Z88.5 Allergy status to narcotic agent; Z91.041 Radiographic dye allergy status

== ENCOUNTER → 2018-02-17 | Outpatient (CLI) | payer OTHER ==
[~2018-02-17] MED LIST changes: +KEFLEX500 M1 PO
== END | disposition home or self-care (01) ==
LOC: US 14:15
DX: E04.1 Nontoxic single thyroid nodule (principal); M79.89 Other specified soft tissue disorders

== ENCOUNTER → 2018-02-28 | Outpatient (CLI) | payer OTHER ==
[~2018-02-28] MED LIST changes: -KEFLEX500 M1 PO
== END | disposition home or self-care (01) ==
LOC: US 16:28
DX: E04.2 Nontoxic multinodular goiter (principal)

== ENCOUNTER 2018-05-01 00:50 | Emergency (ER) | payer OTHER ==
[~2018-05-01] VITALS: Ht 162.5 cm; Wt 81.6 kg
[~2018-05-01 00:50] MED LIST changes: +KEFLEX500 M1 PO
[2018-05-01 01:54] LABS: BASO # 0.1 10*3/uL (0.0-0.1); BASO % 0.6 % (0.0-1.0); EOS # 0.2 10*3/uL (0.0-0.4); EOS % 2.1 % (1.0-4.0); HEMATOCRIT 47.2 % (37.0-47.0); HEMOGLOBIN 15.8 g/dl (12.0-16.0); LYMPH # 3.3 10*3/uL (1.3-4.4); MEAN CELL VOLUME 89.7 fl (81.0-99.0); MEAN CORPUSCULAR HGB CONC 33.5 g/dl (33.0-37.0); MEAN PLATELET VOLUME 9.3 fl (9.6-12.3); MONO # 0.6 10*3/uL (0.1-1.0); MONO % 5.8 % (3.0-9.0); NEUT # 6.3 10*3/uL (2.3-7.9); NEUT % 59.7 % (47.0-73.0); PLATELET COUNT AUTOMATED 267 10*3/uL (130-400); RED BLOOD COUNT 5.26 10*6/uL (4.10-5.10); RED CELL DISTRI WIDTH 13.6 % (0-14.5); WHITE BLOOD COUNT 10.6 10*3/uL (4.8-10.8)
[2018-05-01 02:06] LABS: ALBUMIN 3.5 gm/dl (3.1-4.5); ALKALINE PHOSPHATASE 93 U/L (45-117); BUN 11 mg/dl (7-24); CREATININE 0.91 mg/dL (0.55-1.02); LIPASE 222 U/L (73-393); SGOT/AST 17 IU/L (3-35); SGPT/ALT 19 U/L (12-78)
[2018-05-01 02:11] LABS: CHLORIDE 106 mmol/L (98-107); POTASSIUM 3.8 mmol/L (3.5-5.1); SODIUM 143 mmol/L (136-145)
[2018-05-01 03:10] LABS: BILIRUBIN NEGATIVE (NEGATIVE); BLOOD NEGATIVE (NEGATIVE); CLARITY CLEAR (CLEAR); COLOR YELLOW (YELLOW); GLUCOSE NEGATIVE (NEGATIVE); KETONE NEGATIVE (NEGATIVE); LEUKO ESTERASE NEGATIVE (NEGATIVE); NITRITE NEGATIVE (NEGATIVE); SPECIFIC GRAVITY 1.005 (1.005-1.030); UROBILINOGEN 0.2 E.U./dl (0.2-1.0)
[2018-05-01] MEDS ORDERED: Phenergan25 MG PO (03:20)
[2018-05-01 03:24] LABS: BACTERIA 2+; EPITHELIAL CELLS 0-2; RBC 0-2 rbc/hpf (0-2)
[2018-05-01 03:46] VITALS: BP 152/68
== END 2018-05-01 03:28 | disposition home or self-care (01) ==
LOC: ED 00:50
PROVIDERS: Physician Assistant
DX: R10.12 Left upper quadrant pain (principal); R11.0 Nausea; J44.9 Chronic obstructive pulmonary disease, unspecified; K21.9 Gastro-esophageal reflux disease without esophagitis; I10 Essential (primary) hypertension; G43.909 Migraine, unspecified, not intractable, without status migrainosus; E66.9 Obesity, unspecified; Z88.1 Allergy status to other antibiotic agents; Z88.6 Allergy status to analgesic agent; Z88.2 Allergy status to sulfonamides; Z91.041 Radiographic dye allergy status; Z79.899 Other long term (current) drug therapy; Z87.891 Personal history of nicotine dependence; Z86.718 Personal history of other venous thrombosis and embolism; Z68.34 Body mass index [BMI] 34.0-34.9, adult; Z87.19 Personal history of other diseases of the digestive system

== ENCOUNTER 2018-07-15 14:44 | Emergency (ER) | payer OTHER ==
[~2018-07-15] VITALS: Wt 82.6 kg
[2018-07-15 14:47] VITALS: BP 150/104
[2018-07-15 15:56] LABS: BASO # 0.1 10*3/uL (0.0-0.1); BASO % 0.8 % (0.0-1.0); EOS # 0.2 10*3/uL (0.0-0.4); EOS % 2.5 % (1.0-4.0); HEMOGLOBIN 16.9 g/dl (12.0-16.0); LYMPH # 3.3 10*3/uL (1.3-4.4); LYMPH % 35.9 % (27.0-41.0); MEAN CELL VOLUME 90.4 fl (81.0-99.0); MEAN CORPUSCULAR HGB CONC 33.1 g/dl (33.0-37.0); MEAN PLATELET VOLUME 9.4 fl (9.6-12.3); MONO # 0.6 10*3/uL (0.1-1.0); MONO % 6.4 % (3.0-9.0); NEUT % 54.2 % (47.0-73.0); PLATELET COUNT AUTOMATED 247 10*3/uL (130-400); RED BLOOD COUNT 5.64 10*6/uL (4.10-5.10); RED CELL DISTRI WIDTH 14.1 % (0-14.5); WHITE BLOOD COUNT 9.2 10*3/uL (4.8-10.8)
[2018-07-15 16:09] LABS: BILIRUBIN NEGATIVE (NEGATIVE); BLOOD 1+ (NEGATIVE); CLARITY CLEAR (CLEAR); COLOR YELLOW (YELLOW); GLUCOSE NEGATIVE (NEGATIVE); KETONE NEGATIVE (NEGATIVE); LEUKO ESTERASE NEGATIVE (NEGATIVE); NITRITE NEGATIVE (NEGATIVE); SPECIFIC GRAVITY <= 1.005 (1.005-1.030); UROBILINOGEN 0.2 E.U./dl (0.2-1.0)
[2018-07-15 16:11] LABS: ALBUMIN 3.8 gm/dl (3.1-4.5); ALKALINE PHOSPHATASE 107 U/L (45-117); BUN 14 mg/dl (7-24); CHLORIDE 109 mmol/L (98-107); CREATININE 0.76 mg/dL (0.55-1.02); LIPASE 232 U/L (73-393); POTASSIUM 4.2 mmol/L (3.5-5.1); SGOT/AST 22 IU/L (3-35); SGPT/ALT 23 U/L (12-78); SODIUM 141 mmol/L (136-145); TOTAL PROTEIN 7.9 gm/dL (6.4-8.2)
[2018-07-15 16:33] LABS: BACTERIA TRACE; EPITHELIAL CELLS 35-40; WBC 0-2 wbc/hpf (0-5)
[2018-07-15] MEDS ORDERED: AUGMENTIN 875875 MG PO (16:42)
[2018-07-17] MEDS ORDERED: VITAMIN D-32000 UNI1 PO (23:34)
[2018-07-17] MEDS ORDERED: IBUPROFEN400 MG PO (23:34)
== END 2018-07-15 17:10 | disposition home or self-care (01) ==
LOC: ED 14:44
PROVIDERS: Physician Assistant
DX: S93.402A Sprain of unspecified ligament of left ankle, initial encounter (principal); K57.92 Diverticulitis of intestine, part unspecified, without perforation or abscess without bleeding; M79.18 Myalgia, other site; Z87.891 Personal history of nicotine dependence; Z79.899 Other long term (current) drug therapy; Z88.1 Allergy status to other antibiotic agents; Z88.6 Allergy status to analgesic agent; Z88.2 Allergy status to sulfonamides; Z91.041 Radiographic dye allergy status; Z90.49 Acquired absence of other specified parts of digestive tract; Z98.51 Tubal ligation status; W10.8XXA Fall (on) (from) other stairs and steps, initial encounter; Y93.89 Activity, other specified; Y92.89 Other specified places as the place of occurrence of the external cause; Y99.8 Other external cause status

== ENCOUNTER → 2018-09-05 | Outpatient (CLI) | payer OTHER ==
[~2018-09-05] MED LIST changes: +VITAMIN D-32000 UNI1 PO
== END | disposition home or self-care (01) ==
LOC: MRI 09:18
DX: S93.492A Sprain of other ligament of left ankle, initial encounter (principal); M72.2 Plantar fascial fibromatosis; X58.XXXA Exposure to other specified factors, initial encounter; Y93.89 Activity, other specified; Y92.89 Other specified places as the place of occurrence of the external cause; Y99.8 Other external cause status

== ENCOUNTER → 2018-12-25 | Outpatient (CLI) | payer OTHER | END | disposition home or self-care (01) | LOC: RAD 17:48 | DX: M25.552 Pain in left hip (principal); M47.816 Spondylosis without myelopathy or radiculopathy, lumbar region; M54.16 Radiculopathy, lumbar region ==

== ENCOUNTER 2019-04-06 19:12 | Inpatient (IN) | payer OTHER ==
[2019-04-06] VITALS (10 sets, daily range): BP systolic 108–148; BP diastolic 41–82
[~2019-04-06] VITALS: Ht 167.6 cm; Wt 85.7 kg
--- NOTE | ~2019-04-06 | EKG ---
[place], [place] ELECTROCARDIOGRAM REPORT NAME: JODIE MCINTOSH UNIT #: [id number] ROOM: 518 DOCTOR: FALLON DRAFT REPORT BIRTHDATE: [birth year] [facility] Test Date: 2019-04-06 Test Time: 22:27:49 Pat Name: JODIE MCINTOSH Department: Room: 518 Gender: F Reimbursement Spec: : 1960 Requested By: MARIBEL VALERA Order Number: [id number] Reading MD: Stanislav Medina MD Measurements Intervals [place] Rate: 84 P: 60 MD: 164 QRS: -40 QRSD: 89 T: 70 QT: 381 QTc: 451 Interpretive Statements Sinus rhythm Left anterior fascicular block Left ventricular hypertrophy Possible anteroseptal infarct, old Electronically Signed On 04-07-2019 11:46:04 PDT by Stanislav Medina MD CM:EKGRPT:ELECTROCARDIOGRAM REPORT 1146 MARIBEL GRAF DRAFT REPORT MARIBEL VALERA DO
[2019-04-06 19:37] LABS: BASO # 0.1 10*3/uL (0.0-0.1); BASO % 0.4 % (0.0-1.0); EOS # 0.1 10*3/uL (0.0-0.4); EOS % 0.7 % (1.0-4.0); HEMOGLOBIN 16.3 g/dl (12.0-16.0); LYMPH # 2.8 10*3/uL (1.3-4.4); MEAN CELL VOLUME 89.4 fl (81.0-99.0); MEAN CORPUSCULAR HGB 30.4 pg (27.0-31.0); MEAN PLATELET VOLUME 9.5 fl (9.6-12.3); MONO # 0.6 10*3/uL (0.1-1.0); MONO % 4.5 % (3.0-9.0); NEUT # 10.3 10*3/uL (2.3-7.9); NEUT % 74.1 % (47.0-73.0); PLATELET COUNT AUTOMATED 280 10*3/uL (130-400); RED BLOOD COUNT 5.37 10*6/uL (4.10-5.10); RED CELL DISTRI WIDTH 14.3 % (0-14.5); WHITE BLOOD COUNT 13.8 10*3/uL (4.8-10.8)
[2019-04-06 19:50] LABS: ACT PARTIAL THROMBO TIME 28.4 SECONDS (20.0-32.1); INTERNATIONAL NORM RATIO 0.9 (2.0-3.5)
[2019-04-06 19:53] LABS: ALBUMIN 3.5 gm/dl (3.1-4.5); ALKALINE PHOSPHATASE 100 U/L (45-117); BUN 13 mg/dl (7-24); CHLORIDE 104 mmol/L (98-107); CREATININE 1.17 mg/dL (0.55-1.02); POTASSIUM 3.8 mmol/L (3.5-5.1); SGOT/AST 18 IU/L (3-35); SGPT/ALT 21 U/L (12-78); SODIUM 136 mmol/L (136-145); TOTAL PROTEIN 7.3 gm/dL (6.4-8.2)
[2019-04-06 19:56] LABS: TROPONIN I < 0.015 ng/ml (<0.045)
--- NOTE | 2019-04-06 20:00 | NUR ---
PATIENT STATES NITRO INEFFECTIVE FOR PAIN RELIEF. DR VALERA TO ROOM. BP 126/78. PATIENT AMBULATES TO RESTROOM AT THIS TIME
[2019-04-06 20:13] LABS: BILIRUBIN NEGATIVE (NEGATIVE); BLOOD 1+ (NEGATIVE); CLARITY CLEAR (CLEAR); COLOR YELLOW (YELLOW); GLUCOSE NEGATIVE (NEGATIVE); KETONE NEGATIVE (NEGATIVE); LEUKO ESTERASE NEGATIVE (NEGATIVE); NITRITE NEGATIVE (NEGATIVE); SPECIFIC GRAVITY <= 1.005 (1.005-1.030); UROBILINOGEN 0.2 E.U./dl (0.2-1.0)
[2019-04-06 20:19] LABS: BACTERIA 2+; WBC 0-2 wbc/hpf (0-5)
[2019-04-06] MEDS ORDERED: CYCLOBENZAPRINE10 MG PO (23:19)
--- NOTE | 2019-04-06 23:28 | NUR ---
PT STATES "IF I DONT GET PAIN MEDS I AM LEAVING" DR. SHELL NOTIFIED OF PT REQUEST. NO ORDERS RECEIVED AT THIS TIME.
--- NOTE | 2019-04-06 23:30 | NUR ---
PATIENT HAS LEFT AMA. PT REFUSED ASSESSMENT AND ADMISSION PROCESS. IV WAS TAKEN OUT AND PATIENT LEFT WITH HER BELONGINGS. PT WAS EDUCATED ON DANGERS OF LEAVING AMA AND STILL DECIDED TO LEAVE.
--- NOTE | 2019-04-06 23:35 | NUR ---
[employer] MANAGER NOTIFIED OF PT LEAVING AMA. DR. SHELL NOTIFIED OF PT LEAVING AMA.
== END 2019-04-06 23:35 | disposition left against medical advice (07) | DRG 313 ==
LOC: ED 19:12 → EDHOLD 22:03 → 5E 22:16
PROVIDERS: Emergency Medicine; ADMIT Internal Medicine
DX: R07.89 Other chest pain (principal); K86.1 Other chronic pancreatitis; R65.10 Systemic inflammatory response syndrome (SIRS) of non-infectious origin without acute organ dysfunction; M79.7 Fibromyalgia; F41.9 Anxiety disorder, unspecified; M19.90 Unspecified osteoarthritis, unspecified site; J45.909 Unspecified asthma, uncomplicated; G89.29 Other chronic pain; J43.9 Emphysema, unspecified; K21.9 Gastro-esophageal reflux disease without esophagitis; I10 Essential (primary) hypertension; K58.9 Irritable bowel syndrome, unspecified; G43.909 Migraine, unspecified, not intractable, without status migrainosus; E66.9 Obesity, unspecified; D75.1 Secondary polycythemia; R73.9 Hyperglycemia, unspecified; M50.220 Other cervical disc displacement, mid-cervical region, unspecified level; M43.10 Spondylolisthesis, site unspecified; Z53.21 Procedure and treatment not carried out due to patient leaving prior to being seen by health care provider; M10.9 Gout, unspecified; Z83.3 Family history of diabetes mellitus; Z83.6 Family history of other diseases of the respiratory system; Z86.718 Personal history of other venous thrombosis and embolism; Z90.49 Acquired absence of other specified parts of digestive tract; Z91.09 Other allergy status, other than to drugs and biological substances; Z98.51 Tubal ligation status; Z87.891 Personal history of nicotine dependence; Z82.49 Family history of ischemic heart disease and other diseases of the circulatory system; Z80.0 Family history of malignant neoplasm of digestive organs; Z88.6 Allergy status to analgesic agent; Z88.2 Allergy status to sulfonamides; Z88.8 Allergy status to other drugs, medicaments and biological substances; Z79.899 Other long term (current) drug therapy; Z68.30 Body mass index [BMI] 30.0-30.9, adult

== ENCOUNTER 2019-05-08 01:12 | Emergency (ER) | payer OTHER ==
[~2019-05-08] VITALS: Ht 167.6 cm; Wt 93.0 kg
[2019-05-08 01:13] VITALS: BP 174/94
[2019-05-08] MEDS ORDERED: ATIVAN1 MG PO (01:48)
== END 2019-05-08 02:10 | disposition home or self-care (01) ==
LOC: ED 01:12
DX: F43.21 Adjustment disorder with depressed mood (principal); M19.90 Unspecified osteoarthritis, unspecified site; J44.9 Chronic obstructive pulmonary disease, unspecified; G89.29 Other chronic pain; M79.7 Fibromyalgia; K21.9 Gastro-esophageal reflux disease without esophagitis; I10 Essential (primary) hypertension; G43.909 Migraine, unspecified, not intractable, without status migrainosus; E66.9 Obesity, unspecified; F17.200 Nicotine dependence, unspecified, uncomplicated; Z90.49 Acquired absence of other specified parts of digestive tract; Z68.34 Body mass index [BMI] 34.0-34.9, adult; Z86.718 Personal history of other venous thrombosis and embolism; Z98.890 Other specified postprocedural states; Z88.1 Allergy status to other antibiotic agents; Z91.041 Radiographic dye allergy status; Z88.5 Allergy status to narcotic agent; Z88.8 Allergy status to other drugs, medicaments and biological substances

== ENCOUNTER 2019-12-22 04:43 | Emergency (ER) | payer OTHER ==
[~2019-12-22] VITALS: Ht 167.6 cm; Wt 82.6 kg
[~2019-12-22 04:43] MED LIST changes: +ATIVAN1 MG PO
[2019-12-22 06:04] LABS: BASO # 0.1 10*3/uL (0.0-0.1); BASO % 0.7 % (0.0-1.0); EOS # 0.4 10*3/uL (0.0-0.4); EOS % 3.3 % (1.0-4.0); HEMATOCRIT 46.8 % (37.0-47.0); LYMPH # 4.2 10*3/uL (1.3-4.4); LYMPH % 38.3 % (27.0-41.0); MEAN CELL VOLUME 91.8 fl (81.0-99.0); MEAN CORPUSCULAR HGB 30.4 pg (27.0-31.0); MEAN CORPUSCULAR HGB CONC 33.1 g/dl (33.0-37.0); MEAN PLATELET VOLUME 9.9 fl (9.6-12.3); MONO # 0.7 10*3/uL (0.1-1.0); NEUT # 5.6 10*3/uL (2.3-7.9); NEUT % 51.4 % (47.0-73.0); PLATELET COUNT AUTOMATED 251 10*3/uL (130-400); WHITE BLOOD COUNT 10.9 10*3/uL (4.8-10.8)
[2019-12-22 06:14] LABS: BILIRUBIN NEGATIVE (NEGATIVE); BLOOD 1+ (NEGATIVE); CLARITY CLEAR (CLEAR); COLOR YELLOW (YELLOW); GLUCOSE NEGATIVE (NEGATIVE); KETONE NEGATIVE (NEGATIVE); LEUKO ESTERASE NEGATIVE (NEGATIVE); NITRITE NEGATIVE (NEGATIVE); PH 6.5 (5.0-9.0); SPECIFIC GRAVITY 1.005 (1.005-1.030); UROBILINOGEN 0.2 E.U./dl (0.2-1.0)
[2019-12-22 06:17] LABS: ALBUMIN 3.4 gm/dl (3.1-4.5); ALKALINE PHOSPHATASE 90 U/L (45-117); BUN 11 mg/dl (7-24); CHLORIDE 113 mmol/L (98-107); CREATININE 0.87 mg/dL (0.55-1.02); LIPASE 192 U/L (73-393); POTASSIUM 3.9 mmol/L (3.5-5.1); SGOT/AST 19 IU/L (3-35); SGPT/ALT 20 U/L (12-78); SODIUM 142 mmol/L (136-145); TOTAL PROTEIN 7.3 gm/dL (6.4-8.2)
[2019-12-22 07:40] VITALS: BP 131/55
== END 2019-12-22 08:52 | disposition left against medical advice (07) ==
LOC: ED 04:43
PROVIDERS: Emergency Medicine
DX: R10.32 Left lower quadrant pain (principal); R19.7 Diarrhea, unspecified; R11.2 Nausea with vomiting, unspecified; M19.90 Unspecified osteoarthritis, unspecified site; G89.29 Other chronic pain; J44.9 Chronic obstructive pulmonary disease, unspecified; M79.7 Fibromyalgia; K21.9 Gastro-esophageal reflux disease without esophagitis; I10 Essential (primary) hypertension; G43.909 Migraine, unspecified, not intractable, without status migrainosus; E66.9 Obesity, unspecified; Z86.718 Personal history of other venous thrombosis and embolism; Z90.49 Acquired absence of other specified parts of digestive tract; Z87.891 Personal history of nicotine dependence; Z98.890 Other specified postprocedural states; Z88.5 Allergy status to narcotic agent; Z79.899 Other long term (current) drug therapy; Z88.1 Allergy status to other antibiotic agents; Z91.041 Radiographic dye allergy status

== ENCOUNTER 2019-12-25 13:41 | Emergency (ER) | payer OTHER ==
[~2019-12-25] VITALS: Ht 167.6 cm; Wt 90.7 kg
[2019-12-25 13:47] VITALS: BP 159/105
[2019-12-25 15:14] LABS: HEMATOCRIT 47.9 % (37.0-47.0); MEAN CELL VOLUME 92.1 fl (81.0-99.0); MEAN CORPUSCULAR HGB 30.6 pg (27.0-31.0); MEAN CORPUSCULAR HGB CONC 33.2 g/dl (33.0-37.0); MEAN PLATELET VOLUME 9.7 fl (9.6-12.3); PLATELET COUNT AUTOMATED 260 10*3/uL (130-400); RED CELL DISTRI WIDTH 14.2 % (0-14.5); WHITE BLOOD COUNT 8.4 10*3/uL (4.8-10.8)
[2019-12-25 15:31] LABS: ATYPICAL LYMPHS 2 % (0-0); TOTAL CELLS COUNTED 100 #CELLS
[2019-12-25 15:32] LABS: PLATELET SUFFICIENCY NORMAL (NORMAL)
[2019-12-25 15:41] LABS: CLARITY CLEAR (CLEAR); COLOR STRAW (YELLOW)
[2019-12-25 15:44] LABS: BILIRUBIN NEGATIVE (NEGATIVE); BLOOD 1+ (NEGATIVE); GLUCOSE NEGATIVE (NEGATIVE); KETONE NEGATIVE (NEGATIVE); LEUKO ESTERASE NEGATIVE (NEGATIVE); NITRITE NEGATIVE (NEGATIVE); PH 6.5 (5.0-9.0); SPECIFIC GRAVITY 1.005 (1.005-1.030); UROBILINOGEN 0.2 E.U./dl (0.2-1.0)
[2019-12-25 15:50] LABS: WBC 0-2 wbc/hpf (0-5)
[2019-12-25 15:51] LABS: BACTERIA 1+
== END 2019-12-25 16:38 | disposition left against medical advice (07) ==
LOC: ED 13:41
PROVIDERS: Emergency Medicine
DX: R10.12 Left upper quadrant pain (principal); Z88.5 Allergy status to narcotic agent; Z88.8 Allergy status to other drugs, medicaments and biological substances; Z91.041 Radiographic dye allergy status; Z88.2 Allergy status to sulfonamides; Z79.899 Other long term (current) drug therapy; Z90.49 Acquired absence of other specified parts of digestive tract

== ENCOUNTER 2020-01-09 19:27 | Emergency (ER) | payer OTHER ==
[~2020-01-09] VITALS: Ht 167.6 cm; Wt 85.3 kg
[2020-01-09 19:49] VITALS: BP 165/71
== END 2020-01-09 22:14 | disposition home or self-care (01) ==
LOC: ED 19:27
DX: K08.89 Other specified disorders of teeth and supporting structures (principal); M19.90 Unspecified osteoarthritis, unspecified site; J44.9 Chronic obstructive pulmonary disease, unspecified; G43.909 Migraine, unspecified, not intractable, without status migrainosus; K21.9 Gastro-esophageal reflux disease without esophagitis; F41.9 Anxiety disorder, unspecified; Z90.49 Acquired absence of other specified parts of digestive tract; Z79.899 Other long term (current) drug therapy; Z88.2 Allergy status to sulfonamides; Z88.8 Allergy status to other drugs, medicaments and biological substances; Z88.5 Allergy status to narcotic agent

== ENCOUNTER 2020-02-14 22:33 | Emergency (ER) | payer OTHER ==
[~2020-02-14] VITALS: Ht 167.6 cm; Wt 85.3 kg
[2020-02-15 00:45] VITALS: BP 134/79
== END 2020-02-15 01:05 | disposition home or self-care (01) ==
LOC: ED 22:33
DX: M25.561 Pain in right knee (principal); J44.9 Chronic obstructive pulmonary disease, unspecified; K21.9 Gastro-esophageal reflux disease without esophagitis; M79.7 Fibromyalgia; G43.909 Migraine, unspecified, not intractable, without status migrainosus; E66.9 Obesity, unspecified; Z88.1 Allergy status to other antibiotic agents; Z88.6 Allergy status to analgesic agent; Z91.041 Radiographic dye allergy status; Z88.2 Allergy status to sulfonamides; Z86.718 Personal history of other venous thrombosis and embolism; Z68.34 Body mass index [BMI] 34.0-34.9, adult; Z87.891 Personal history of nicotine dependence

== ENCOUNTER 2020-05-27 16:58 | Observation (INO) | payer OTHER ==
[~2020-05-27] VITALS: Ht 165.1 cm
[2020-05-27 17:04] VITALS: BP 152/82
[2020-05-27 18:02] LABS: BASO # 0.1 10*3/uL (0.0-0.1); BASO % 0.7 % (0.0-1.0); EOS # 0.2 10*3/uL (0.0-0.4); EOS % 1.5 % (1.0-4.0); HEMATOCRIT 49.2 % (37.0-47.0); LYMPH # 3.5 10*3/uL (1.3-4.4); LYMPH % 35.3 % (27.0-41.0); MEAN CELL VOLUME 89.8 fl (81.0-99.0); MEAN CORPUSCULAR HGB 28.8 pg (27.0-31.0); MEAN CORPUSCULAR HGB CONC 32.1 g/dl (33.0-37.0); MEAN PLATELET VOLUME 9.4 fl (9.6-12.3); MONO # 0.5 10*3/uL (0.1-1.0); MONO % 4.8 % (3.0-9.0); NEUT # 5.7 10*3/uL (2.3-7.9); NEUT % 57.5 % (47.0-73.0); PLATELET COUNT AUTOMATED 278 10*3/uL (130-400); RED BLOOD COUNT 5.48 10*6/uL (4.10-5.10); RED CELL DISTRI WIDTH 13.8 % (0-14.5); WHITE BLOOD COUNT 9.9 10*3/uL (4.8-10.8)
[2020-05-27 18:23] LABS: ALBUMIN 3.6 gm/dl (3.1-4.5); ALKALINE PHOSPHATASE 93 U/L (45-117); BUN 10 mg/dl (7-24); CHLORIDE 108 mmol/L (98-107); CREATININE 0.91 mg/dL (0.55-1.02); LIPASE 486 U/L (73-393); POTASSIUM 3.8 mmol/L (3.5-5.1); SGOT/AST 16 IU/L (3-35); SGPT/ALT 19 U/L (12-78); SODIUM 138 mmol/L (136-145); TOTAL PROTEIN 7.5 gm/dL (6.4-8.2)
--- NOTE | 2020-05-27 19:06 | NUR ---
NURSE TO NURSE REPORT GIVEN TO THIS RN.ADVISED PT AWAITING ADMISSION.
[2020-05-27 19:15] LABS: BILIRUBIN Negative (Negative); BLOOD 1+ (Negative); CLARITY Clear (Clear); COLOR Yellow (Yellow); GLUCOSE Negative (Negative); KETONE Negative (Negative); LEUKO ESTERASE Negative (Negative); NITRITE Negative (Negative); PH 5.5 (4.5-8.0); SPECIFIC GRAVITY <= 1.005 (1.001-1.030); UROBILINOGEN 0.2 E.U./dl (0.0-1.0)
--- NOTE | 2020-05-27 19:19 | NUR ---
PT MEDICATED PER EMAR.FLUIDS CONTINUE TO INFUSE.
[2020-05-27 19:28] LABS: BACTERIA TRACE; WBC 0-2 wbc/hpf (0-5)
[2020-05-27 19:48] VITALS: BP 103/50
[2020-05-27 20:00] VITALS: BP 129/84
--- NOTE | 2020-05-27 20:14 | NUR ---
PT REQUESTING TO LEAVE.
--- NOTE | 2020-05-27 20:16 | NUR ---
RESIDENT DR DE LEÓN NOTIFIED OF PT REQUEST TO LEAVE AMA.
--- NOTE | 2020-05-27 20:35 | NUR ---
[employer] MANAGER MERCEDES CONTACTED AND MADE AWARE OF PT REQUEST TO LEAVE AMA.PT SIGNED AMA PAPERWORK FROM EMERGENCY DEPARTMENT.PT IV FLUIDS DISCONTINUED AND IV REMOVED INTACT.PT EXPLAINED RISKS OF LEAVING AMA.PT VERBALIZED UNDERSTANDING AND WAS AMBULATORY OFF UNIT WITHOUT DIFFICULTY.
== END 2020-05-27 20:36 | disposition left against medical advice (07) ==
LOC: ED 16:58 → EDHOLD 19:10 → 5E 19:59
PROVIDERS: Nurse Practitioner Family; ADMIT Emergency Medicine; ATTEND Emergency Medicine
DX: K85.90 Acute pancreatitis without necrosis or infection, unspecified (principal); M25.561 Pain in right knee; R10.9 Unspecified abdominal pain

== ENCOUNTER 2020-07-30 05:56 | Inpatient (IN) | payer OTHER ==
[2020-07-30] VITALS (7 sets, daily range): BP systolic 107–159; BP diastolic 49–78
[~2020-07-30] VITALS: Ht 167.6 cm; Wt 92.1 kg
[2020-07-30 06:36] LABS: HEMATOCRIT 49.4 % (37.0-47.0); MEAN CELL VOLUME 89.2 fl (81.0-99.0); MEAN CORPUSCULAR HGB 28.5 pg (27.0-31.0); MEAN PLATELET VOLUME 9.5 fl (9.6-12.3); PLATELET COUNT AUTOMATED 268 10*3/uL (130-400); RED BLOOD COUNT 5.54 10*6/uL (4.10-5.10); RED CELL DISTRI WIDTH 13.9 % (0-14.5); WHITE BLOOD COUNT 11.3 10*3/uL (4.8-10.8)
[2020-07-30 06:48] LABS: ALBUMIN 2.8 gm/dl (3.1-4.5); ALKALINE PHOSPHATASE 102 U/L (45-117); BUN 14 mg/dl (7-24); CHLORIDE 105 mmol/L (98-107); CREATININE 1.05 mg/dL (0.55-1.02); LIPASE 1036 U/L (73-393); SGOT/AST 20 IU/L (3-35); SGPT/ALT 22 U/L (12-78); SODIUM 133 mmol/L (136-145); TOTAL PROTEIN 7.1 gm/dL (6.4-8.2)
[2020-07-30 06:58] LABS: PLATELET SUFFICIENCY NORMAL (NORMAL); TOTAL CELLS COUNTED 100 #CELLS
--- NOTE | 2020-07-30 07:11 | NUR ---
REPORT RECIEVED FROM GAGE CASTELLANOS
--- NOTE | 2020-07-30 09:03 | NUR ---
IV INFILTRATE RIGHT ARM AT ELBOW IV D/C
--- NOTE | 2020-07-30 09:03 | NUR ---
PT REPORTS ESSENTIALLY NO RELIEF FROM PAIN MEDICATION
--- NOTE | 2020-07-30 10:30 | NUR ---
Time: 1029 A 59 year old FEMALE admitted to 5E under services of MAXI NARANJO DO. Pt. arrived via ambulatory from ER. Chief complaint: ABDOMINAL PAIN\\. JOHN PHILLIPS
--- NOTE | 2020-07-30 16:44 | NUR ---
ADMINISTERING IV PHENERGAN X 1 ORDERED FOR NAUSEA.
--- NOTE | 2020-07-30 17:39 | NUR ---
IV PHENERGAN EFFECTIVE; PATIENT ABLE TO TOLERATE CLEAR LIQUIDS FOR SUPPER.
--- NOTE | 2020-07-30 20:53 | NUR ---
PT REQUESTS SOMETHING TO HELP HER SLEEP. RESTORIL GIVEN AT THIS TIME. WILL MONITOR FOR EFFECTIVENESS.
[2020-07-31] VITALS: BP 129/84
[2020-07-31 06:36] LABS: BASO % 0.4 % (0.0-1.0); EOS # 0.2 10*3/uL (0.0-0.4); EOS % 2.4 % (1.0-4.0); HEMATOCRIT 44.3 % (37.0-47.0); LYMPH # 3.7 10*3/uL (1.3-4.4); LYMPH % 40.5 % (27.0-41.0); MEAN CELL VOLUME 90.2 fl (81.0-99.0); MEAN CORPUSCULAR HGB 28.5 pg (27.0-31.0); MEAN CORPUSCULAR HGB CONC 31.6 g/dl (33.0-37.0); MEAN PLATELET VOLUME 9.4 fl (9.6-12.3); MONO # 0.6 10*3/uL (0.1-1.0); MONO % 6.2 % (3.0-9.0); NEUT # 4.6 10*3/uL (2.3-7.9); NEUT % 50.2 % (47.0-73.0); PLATELET COUNT AUTOMATED 246 10*3/uL (130-400); RED BLOOD COUNT 4.91 10*6/uL (4.10-5.10); RED CELL DISTRI WIDTH 14.2 % (0-14.5); WHITE BLOOD COUNT 9.1 10*3/uL (4.8-10.8)
[2020-07-31 06:55] LABS: ALBUMIN 3.1 gm/dl (3.1-4.5); BUN 6 mg/dl (7-24); CHLORIDE 111 mmol/L (98-107); POTASSIUM 3.8 mmol/L (3.5-5.1); SODIUM 142 mmol/L (136-145)
[2020-07-31 07:09] LABS: ALKALINE PHOSPHATASE 91 U/L (45-117); CHOLESTEROL 160 mg/dL (<200); CREATININE 0.89 mg/dL (0.55-1.02); HDL CHOLESTEROL 34 mg/dl (40-60); LDL CHOLESTEROL 78 mg/dL (9-159); SGOT/AST 19 IU/L (3-35); SGPT/ALT 21 U/L (12-78); TOTAL PROTEIN 6.3 gm/dL (6.4-8.2); TRIGLYCERIDES 239 mg/dl (<150); VLDL CHOLESTEROL 48 mg/dL (6-40)
[2020-07-31 07:48] LABS: VITAMIN D, 25-HYDROXY 11.3 ng/mL (30-100)
[2020-07-31 08:00] VITALS: BP 133/80
--- NOTE | 2020-07-31 11:44 | NUR ---
PATIENT C/O NAUSEA, UNABLE TO EAT CLEAR LIQUID LUNCH, NO VOMITING PER PATIENT. ADMINISTERED PO BENADRYL 25MG X 1 ORDERED, ALSO ADMINISTERING IV PHENERGAN VIA INFUSION PUMP OVER 10 MINUTES.
[2020-07-31 12:00] VITALS: BP 110/74
--- NOTE | 2020-07-31 12:45 | NUR ---
IV PHENERGAN AND PO BENADRYL EFFECTIVE, PER PATIENT.
[2020-07-31 16:00] VITALS: BP 98/60
[2020-07-31 20:00] VITALS: BP 115/63
--- NOTE | 2020-07-31 21:01 | NUR ---
ASSUMED CARE OF PATIENT. PATIENT IS RESTING IN BED WITH EASY AND REGULAR RESPERS. ASSESSMENT IS COMPLETE WITH NO S/S OF DISTRESS NOTED AT THIS TIME. PATIENT C/O NAUSEA AND LLQ ABDOMINAL TENDERNESS. SCHEDULED DILAUDID GIVEN, AND PATIENT REQUESTING PHENERGAN FOR NAUSEA. BED IS LOW, LOCKED, AND CALL LIGHT US WITHIN REACH. WILL MONITOR MEDICATION EFFECT. SEE INTERVENTIONS.
--- NOTE | 2020-07-31 21:05 | NUR ---
CALL PLACED TO RESIDENT DR. MEDINA IN REGARDS TO PATIENT NAUSEA, SEE NEW ORDER.
--- NOTE | 2020-07-31 22:15 | NUR ---
ONE TIME DOSE OF PHENERGA GIVEN AT THIS TIME FOR C/O NAUSEA. CALL LIGHT IS WITHIN REACH, WILL MONITOR EFFECT.
--- NOTE | 2020-07-31 23:12 | NUR ---
PHENERGAN EFFECTIVE PER PATIENT. SCHEDULED DILAUDID GIVEN. WILL MONITOR EFFECT OF MEDICATION.
--- NOTE | 2020-07-31 23:45 | NUR ---
DILAUDID EFFECTIVE PER PATIENT. CALL LIGHT IS WITHIN REACH.
[2020-08-01] VITALS: BP 101/82
--- NOTE | 2020-08-01 04:00 | NUR ---
DR. MEDINA CONTACTED FOR PATIENT C/O NAUSEA AND REFUSING ZOFRAN. ONE TIME DOSE OF PHENERGAN ORDERED.
--- NOTE | 2020-08-01 04:17 | NUR ---
SCHEDULED DILAUDID GIVEN FOR C/O ABDOMINAL PAIN. ONE TIME DOSE OF PHENERGAN GIVEN FOR C/O NAUSEA. CALL LIGHT IS WITHIN REACH, WILL MONITOR EFFECT OF MEDICATION.
--- NOTE | 2020-08-01 04:47 | NUR ---
PRN MEDICATIONS EFFECTIVE PER PATIENT.
--- NOTE | 2020-08-01 05:03 | NUR ---
CHART CHECK COMPLETE.
[2020-08-01 06:39] LABS: BASO % 0.4 % (0.0-1.0); EOS # 0.3 10*3/uL (0.0-0.4); EOS % 2.6 % (1.0-4.0); HEMATOCRIT 43.9 % (37.0-47.0); LYMPH # 3.2 10*3/uL (1.3-4.4); LYMPH % 33.3 % (27.0-41.0); MEAN CELL VOLUME 89.6 fl (81.0-99.0); MEAN CORPUSCULAR HGB 28.8 pg (27.0-31.0); MEAN CORPUSCULAR HGB CONC 32.1 g/dl (33.0-37.0); MEAN PLATELET VOLUME 9.5 fl (9.6-12.3); MONO # 0.6 10*3/uL (0.1-1.0); MONO % 6.4 % (3.0-9.0); NEUT # 5.5 10*3/uL (2.3-7.9); PLATELET COUNT AUTOMATED 227 10*3/uL (130-400); RED CELL DISTRI WIDTH 13.7 % (0-14.5); WHITE BLOOD COUNT 9.6 10*3/uL (4.8-10.8)
[2020-08-01 06:53] LABS: BUN 7 mg/dl (7-24); CHLORIDE 111 mmol/L (98-107); CREATININE 0.81 mg/dL (0.55-1.02); LIPASE 475 U/L (73-393); SODIUM 138 mmol/L (136-145)
--- NOTE | 2020-08-01 07:46 | NUR ---
PT COMPLAIN OF PAIN LEFT LOWER QUAD 8/10, DILAUDID GIVEN PER SCHEDULED DOSE. PT STATES SOME NAUSEA, UNDERSTANDS NO ORDER FOR NAUSEA MEDICATIONS AT THIS TIME. PT BREAKFAST ARRIVED WHILE RN IN ROOM, PT ORDERED TOAST,EGGS AND COFFEE. RN WILL CHECK BACK WITH PATIENT TO MONITOR EFFECTIVENESS OF PAIN MEDICATION. PT STATES NO OTHER NEEDS AT THIS TIME
[2020-08-01 08:00] VITALS: BP 114/75
--- NOTE | 2020-08-01 08:15 | NUR ---
Program Supervisor in to talk to patient this morning in Room 522-1 Patient states that she Lives at home with her Keon Vazquez There are No steps in the home. Physician: Laci Morales Pharmacy: [facility] Home health services: None at this time Patient's level of ADLs: Independent in all Aspects of ADL's Patient has working utilities: Yes, All are working DME: [employer] Follow-up physician's appointment after d/c: Per Hospitalist Nurse Director Does patient want to access PORTAL?: No Discharge plan discussed with Pt. Pt. will return home with her . There are no Home Needs. Pt. is Independent in all ADL's Ambulatory. Still Drives. No Home Needs. Discharge Plan to return Home. No Needs. ELOY COURTNEY LPN
[2020-08-01] MEDS ORDERED: PHENERGAN25 M3 PO ×2 (10:31)
[2020-08-01] MEDS ORDERED: PERCOCET 5-3251 EACH PO ×2 (10:31)
--- NOTE | 2020-08-01 12:14 | NUR ---
IV RIGHT AC REMOVED, SOME REDNESS NOTED AROUND INSERTION SITE, PT AWARE TO KEEP AN EYE ON SITE. PT TO BE DISCHARGED TODAY
--- NOTE | 2020-08-01 12:27 | NUR ---
PT UNDERSTANDS DISCARGE INSTRUCTIONS. NO QUESTIONS AT THIS TIME. PT AWARE RX TO BE PICKED UP AT PHARMACY
--- NOTE | 2020-08-01 12:55 | NUR ---
PT DID NOT WAIT FOR WHEELCHAIR, PT AMBULATE SELF FOR DISCHARGE.
[2020-08-12] MEDS ORDERED: GLUCOPHAGE500 M1 PO (10:05)
== END 2020-08-01 12:55 | disposition home or self-care (01) | DRG 282 ==
LOC: ED 05:56 → EDHOLD 07:17 → 5E 07:17
PROVIDERS: Internal Medicine; Student in an Organized Health Care Education/Training Program; ADMIT Internal Medicine; ATTEND Internal Medicine
PROC: 5A09357 Assistance with Respiratory Ventilation, Less than 24 Consecutive Hours, Continuous Positive Airway Pressure (ICD-10-PCS; principal; 2020-07-30)
DX: K85.90 Acute pancreatitis without necrosis or infection, unspecified (principal); K86.1 Other chronic pancreatitis; R73.9 Hyperglycemia, unspecified; R31.9 Hematuria, unspecified; E87.1 Hypo-osmolality and hyponatremia; K21.9 Gastro-esophageal reflux disease without esophagitis; F41.1 Generalized anxiety disorder; M19.90 Unspecified osteoarthritis, unspecified site; J43.9 Emphysema, unspecified; G43.909 Migraine, unspecified, not intractable, without status migrainosus; F17.210 Nicotine dependence, cigarettes, uncomplicated; I10 Essential (primary) hypertension; Z88.8 Allergy status to other drugs, medicaments and biological substances; Z88.1 Allergy status to other antibiotic agents; Z88.5 Allergy status to narcotic agent; Z91.041 Radiographic dye allergy status; Z88.2 Allergy status to sulfonamides; Z88.6 Allergy status to analgesic agent; Z90.49 Acquired absence of other specified parts of digestive tract; Z98.51 Tubal ligation status; Z82.49 Family history of ischemic heart disease and other diseases of the circulatory system; Z83.3 Family history of diabetes mellitus; Z82.5 Family history of asthma and other chronic lower respiratory diseases; Z80.0 Family history of malignant neoplasm of digestive organs; Z86.718 Personal history of other venous thrombosis and embolism; E44.1 Mild protein-calorie malnutrition

== ENCOUNTER 2020-08-02 21:57 | Emergency (ER) | payer OTHER ==
[~2020-08-02] VITALS: Ht 167.6 cm; Wt 90.7 kg
[~2020-08-02 21:57] MED LIST changes: +PERCOCET 5-3251 EACH PO
[2020-08-02 22:13] VITALS: BP 130/64
[2020-08-02 23:03] LABS: BASO # 0.1 10*3/uL (0.0-0.1); BASO % 0.5 % (0.0-1.0); EOS # 0.2 10*3/uL (0.0-0.4); HEMATOCRIT 44.6 % (37.0-47.0); LYMPH # 3.4 10*3/uL (1.3-4.4); LYMPH % 30.8 % (27.0-41.0); MEAN CELL VOLUME 87.8 fl (81.0-99.0); MEAN CORPUSCULAR HGB 28.5 pg (27.0-31.0); MEAN CORPUSCULAR HGB CONC 32.5 g/dl (33.0-37.0); MEAN PLATELET VOLUME 9.7 fl (9.6-12.3); MONO # 0.8 10*3/uL (0.1-1.0); MONO % 7.4 % (3.0-9.0); NEUT # 6.5 10*3/uL (2.3-7.9); PLATELET COUNT AUTOMATED 242 10*3/uL (130-400); RED BLOOD COUNT 5.08 10*6/uL (4.10-5.10); RED CELL DISTRI WIDTH 13.8 % (0-14.5)
[2020-08-02 23:23] LABS: ALBUMIN 3.2 gm/dl (3.1-4.5); CREATININE 1.2 mg/dL (0.55-1.02); POTASSIUM 3.7 mmol/L (3.5-5.1)
[2020-08-12] MEDS ORDERED: GLUCOPHAGE500 M1 PO (10:05)
== END 2020-08-03 00:30 | disposition home or self-care (01) ==
LOC: ED 21:57
PROVIDERS: Nurse Practitioner Family
DX: R10.9 Unspecified abdominal pain (principal); R11.10 Vomiting, unspecified; Z88.6 Allergy status to analgesic agent; Z88.1 Allergy status to other antibiotic agents; Z91.041 Radiographic dye allergy status; Z88.2 Allergy status to sulfonamides; Z79.899 Other long term (current) drug therapy; Z87.891 Personal history of nicotine dependence

== ENCOUNTER 2020-08-10 18:57 | Observation (INO) | payer OTHER ==
[~2020-08-10] VITALS: Ht 167.6 cm; Wt 94.5 kg
[2020-08-10 19:08] VITALS: BP 156/76
[2020-08-10 20:14] LABS: BILIRUBIN Negative (Negative); BLOOD 1+ (Negative); CLARITY Cloudy (Clear); COLOR Yellow (Yellow); GLUCOSE 3+ (Negative); KETONE Trace (Negative); LEUKO ESTERASE Negative (Negative); NITRITE Negative (Negative); SPECIFIC GRAVITY >= 1.030 (1.001-1.030); UROBILINOGEN 0.2 E.U./dl (0.0-1.0)
[2020-08-10 20:21] LABS: BACTERIA 4+; CALCIUM OXALATE CRYSTALS 3+; MUCOUS TRACE; RBC 0-2 rbc/hpf (0-2); WBC 0-2 wbc/hpf (0-5)
[2020-08-10 21:03] LABS: BASO # 0.1 10*3/uL (0.0-0.1); BASO % 0.6 % (0.0-1.0); EOS # 0.1 10*3/uL (0.0-0.4); EOS % 1.2 % (1.0-4.0); HEMATOCRIT 47.4 % (37.0-47.0); LYMPH # 1.8 10*3/uL (1.3-4.4); LYMPH % 19.6 % (27.0-41.0); MEAN CELL VOLUME 88.4 fl (81.0-99.0); MEAN CORPUSCULAR HGB 29.1 pg (27.0-31.0); MEAN CORPUSCULAR HGB CONC 32.9 g/dl (33.0-37.0); MEAN PLATELET VOLUME 9.4 fl (9.6-12.3); MONO # 0.4 10*3/uL (0.1-1.0); MONO % 4.8 % (3.0-9.0); NEUT # 6.6 10*3/uL (2.3-7.9); NEUT % 73.6 % (47.0-73.0); PLATELET COUNT AUTOMATED 312 10*3/uL (130-400); RED BLOOD COUNT 5.36 10*6/uL (4.10-5.10); RED CELL DISTRI WIDTH 13.8 % (0-14.5)
[2020-08-10 21:20] LABS: ALBUMIN 3.4 gm/dl (3.1-4.5); ALKALINE PHOSPHATASE 106 U/L (45-117); BUN 13 mg/dl (7-24); CHLORIDE 104 mmol/L (98-107); CREATININE 0.96 mg/dL (0.55-1.02); LIPASE 677 U/L (73-393); POTASSIUM 4.1 mmol/L (3.5-5.1); SGOT/AST 14 IU/L (3-35); SGPT/ALT 23 U/L (12-78); SODIUM 133 mmol/L (136-145); TOTAL PROTEIN 7.5 gm/dL (6.4-8.2)
[2020-08-10 23:23] VITALS: BP 119/80
[2020-08-11 01:58] VITALS: BP 109/55
[2020-08-11 04:01] VITALS: BP 135/65
[2020-08-11] MEDS ORDERED: VITAMIN D3125 MC2 PO (05:24)
[2020-08-11] MEDS ORDERED: VENTOLIN 02.5 MG/3 M INH (05:25)
[2020-08-11 08:00] VITALS: BP 143/83
[2020-08-11 12:00] VITALS: BP 110/61
[2020-08-11 16:00] VITALS: BP 113/67
[2020-08-11 20:00] VITALS: BP 111/94
[2020-08-12] VITALS: BP 132/58
[2020-08-12 06:49] LABS: ACT PARTIAL THROMBO TIME 24.2 SECONDS (20.0-32.1); INTERNATIONAL NORM RATIO 0.9 (2.0-3.5)
[2020-08-12 06:58] LABS: ALBUMIN 2.8 gm/dl (3.1-4.5); ALKALINE PHOSPHATASE 89 U/L (45-117); BUN 7 mg/dl (7-24); CHLORIDE 113 mmol/L (98-107); CREATININE 0.77 mg/dL (0.55-1.02); POTASSIUM 3.9 mmol/L (3.5-5.1); SGOT/AST 11 IU/L (3-35); SGPT/ALT 18 U/L (12-78); SODIUM 141 mmol/L (136-145)
[2020-08-12 07:17] LABS: BASO % 0.4 % (0.0-1.0); EOS # 0.3 10*3/uL (0.0-0.4); EOS % 4.4 % (1.0-4.0); HEMATOCRIT 41.9 % (37.0-47.0); LYMPH # 3.5 10*3/uL (1.3-4.4); MEAN CELL VOLUME 88.6 fl (81.0-99.0); MEAN CORPUSCULAR HGB 28.5 pg (27.0-31.0); MEAN CORPUSCULAR HGB CONC 32.2 g/dl (33.0-37.0); MEAN PLATELET VOLUME 9.5 fl (9.6-12.3); MONO # 0.5 10*3/uL (0.1-1.0); NEUT # 3.3 10*3/uL (2.3-7.9); NEUT % 42.9 % (47.0-73.0); PLATELET COUNT AUTOMATED 258 10*3/uL (130-400); RED BLOOD COUNT 4.73 10*6/uL (4.10-5.10); WHITE BLOOD COUNT 7.8 10*3/uL (4.8-10.8)
[2020-08-12 08:00] VITALS: BP 104/57
[2020-08-12] MEDS ORDERED: GLUCOPHAGE500 M1 PO ×2 (10:05)
[2020-08-12] MEDS ORDERED: PHENERGAN25 M3 PO (10:05)
== END 2020-08-12 10:31 | disposition home or self-care (01) ==
LOC: ED 18:57 → 5E 08-11 00:26 → EDHOLD 08-11 00:26 → 5E 08-11 03:13
PROVIDERS: Emergency Medicine; Hospitalist; ADMIT Internal Medicine; ATTEND Internal Medicine
DX: K85.90 Acute pancreatitis without necrosis or infection, unspecified (principal); K86.1 Other chronic pancreatitis; E11.65 Type 2 diabetes mellitus with hyperglycemia; R31.9 Hematuria, unspecified; J44.9 Chronic obstructive pulmonary disease, unspecified; M79.7 Fibromyalgia; K58.9 Irritable bowel syndrome, unspecified; R53.82 Chronic fatigue, unspecified; E87.2 Acidosis; F17.210 Nicotine dependence, cigarettes, uncomplicated; I10 Essential (primary) hypertension; G43.909 Migraine, unspecified, not intractable, without status migrainosus; F41.9 Anxiety disorder, unspecified; E87.1 Hypo-osmolality and hyponatremia; K21.9 Gastro-esophageal reflux disease without esophagitis; R79.82 Elevated C-reactive protein (CRP); Z71.6 Tobacco abuse counseling; Z20.828 Contact with and (suspected) exposure to other viral communicable diseases; Z90.49 Acquired absence of other specified parts of digestive tract; Z98.890 Other specified postprocedural states

== ENCOUNTER 2020-08-18 19:12 | Emergency (ER) | payer OTHER ==
[~2020-08-18] VITALS: Ht 165.1 cm; Wt 88.5 kg
[~2020-08-18 19:12] MED LIST changes: +GLUCOPHAGE500 M1 PO; +VENTOLIN 02.5 MG/3 M INH; +VITAMIN D3125 MC2 PO
[2020-08-18 19:23] VITALS: BP 140/110
[2020-08-18 21:24] LABS: BILIRUBIN Negative (Negative); BLOOD Trace-Lysed (Negative); CLARITY Clear (Clear); COLOR Yellow (Yellow); GLUCOSE 2+ (Negative); KETONE Negative (Negative); LEUKO ESTERASE Negative (Negative); NITRITE Negative (Negative); SPECIFIC GRAVITY 1.015 (1.001-1.030); UROBILINOGEN 0.2 E.U./dl (0.0-1.0)
[2020-08-18 21:24] LABS: BASO # 0.1 10*3/uL (0.0-0.1); BASO % 0.6 % (0.0-1.0); EOS # 0.2 10*3/uL (0.0-0.4); EOS % 1.9 % (1.0-4.0); HEMATOCRIT 45.4 % (37.0-47.0); LYMPH # 2.6 10*3/uL (1.3-4.4); LYMPH % 24.2 % (27.0-41.0); MEAN CELL VOLUME 88.7 fl (81.0-99.0); MEAN CORPUSCULAR HGB 28.3 pg (27.0-31.0); MEAN CORPUSCULAR HGB CONC 31.9 g/dl (33.0-37.0); MEAN PLATELET VOLUME 9.5 fl (9.6-12.3); MONO # 0.6 10*3/uL (0.1-1.0); MONO % 5.7 % (3.0-9.0); NEUT # 7.3 10*3/uL (2.3-7.9); NEUT % 67.2 % (47.0-73.0); PLATELET COUNT AUTOMATED 293 10*3/uL (130-400); RED BLOOD COUNT 5.12 10*6/uL (4.10-5.10); RED CELL DISTRI WIDTH 14.2 % (0-14.5); WHITE BLOOD COUNT 10.8 10*3/uL (4.8-10.8)
[2020-08-18 21:32] LABS: BACTERIA 2+; RBC 0-2 rbc/hpf (0-2); WBC 0-2 wbc/hpf (0-5)
[2020-08-18 21:39] LABS: ALBUMIN 3.2 gm/dl (3.1-4.5); ALKALINE PHOSPHATASE 92 U/L (45-117); BUN 12 mg/dl (7-24); CHLORIDE 108 mmol/L (98-107); CREATININE 1.02 mg/dL (0.55-1.02); LIPASE 1066 U/L (73-393); POTASSIUM 3.7 mmol/L (3.5-5.1); SGOT/AST 16 IU/L (3-35); SGPT/ALT 26 U/L (12-78); SODIUM 138 mmol/L (136-145)
== END 2020-08-18 23:21 | disposition left against medical advice (07) ==
LOC: ED 19:12 → EDHOLD 22:21 → ED 23:21
PROVIDERS: Physician Assistant
DX: K85.90 Acute pancreatitis without necrosis or infection, unspecified (principal); K21.9 Gastro-esophageal reflux disease without esophagitis; G43.909 Migraine, unspecified, not intractable, without status migrainosus; I10 Essential (primary) hypertension; J44.9 Chronic obstructive pulmonary disease, unspecified

== ENCOUNTER 2020-10-10 16:42 | Observation (INO) | payer OTHER ==
[~2020-10-10] VITALS: Ht 175.2 cm; Wt 92.1 kg
[2020-10-10 16:54] VITALS: BP 147/92
[2020-10-10 17:45] LABS: MEAN CELL VOLUME 93.9 fl (81.0-99.0); MEAN CORPUSCULAR HGB 29.5 pg (27.0-31.0); MEAN CORPUSCULAR HGB CONC 31.4 g/dl (33.0-37.0); MEAN PLATELET VOLUME 9.6 fl (9.6-12.3); PLATELET COUNT AUTOMATED 184 10*3/uL (130-400); RED BLOOD COUNT 5.22 10*6/uL (4.10-5.10); RED CELL DISTRI WIDTH 13.6 % (0-14.5); WHITE BLOOD COUNT 9.1 10*3/uL (4.8-10.8)
[2020-10-10 17:51] LABS: ACT PARTIAL THROMBO TIME 26.3 SECONDS (20.0-32.1); INTERNATIONAL NORM RATIO 0.9 (2.0-3.5)
[2020-10-10 17:57] LABS: ALKALINE PHOSPHATASE 99 U/L (45-117); BUN 10 mg/dl (7-24); CHLORIDE 107 mmol/L (98-107); CREATININE 1.01 mg/dL (0.55-1.02); SODIUM 131 mmol/L (136-145); TOTAL PROTEIN 7.5 gm/dL (6.4-8.2)
[2020-10-10 17:59] LABS: TROPONIN I < 0.015 ng/ml (<0.045)
[2020-10-10 18:03] LABS: LIPASE 289 U/L (73-393)
[2020-10-10 18:08] LABS: BILIRUBIN Negative (Negative); BLOOD Negative (Negative); CLARITY Clear (Clear); COLOR Yellow (Yellow); GLUCOSE Negative (Negative); KETONE Negative (Negative); LEUKO ESTERASE Negative (Negative); NITRITE Negative (Negative); PH 6.5 (4.5-8.0); SPECIFIC GRAVITY <= 1.005 (1.001-1.030); UROBILINOGEN 0.2 E.U./dl (0.0-1.0)
[2020-10-10 18:10] LABS: TOTAL CELLS COUNTED 100 #CELLS
[2020-10-10 18:11] LABS: PLATELET SUFFICIENCY NORMAL (NORMAL)
[2020-10-10 18:13] LABS: POTASSIUM 3.9 mmol/L (3.5-5.1); SGOT/AST 10 IU/L (3-35); SGPT/ALT 21 U/L (12-78)
[2020-10-10 18:16] LABS: BACTERIA 2+; RBC 0-2 rbc/hpf (0-2); WBC 0-2 wbc/hpf (0-5)
[2020-10-10 20:35] VITALS: BP 110/63
[2020-10-10] MEDS ORDERED: ZENPEP PO (20:46)
[2020-10-10] MEDS ORDERED: Percocet 325 MG1 TAB PO (20:48)
== END 2020-10-10 22:03 | disposition left against medical advice (07) ==
LOC: ED 16:42 → EDHOLD 18:40 → 5E 19:38
PROVIDERS: Emergency Medicine; ADMIT Internal Medicine; ATTEND Internal Medicine
DX: K85.90 Acute pancreatitis without necrosis or infection, unspecified (principal); K86.1 Other chronic pancreatitis; E87.1 Hypo-osmolality and hyponatremia; E11.65 Type 2 diabetes mellitus with hyperglycemia; E83.41 Hypermagnesemia; R79.82 Elevated C-reactive protein (CRP); R79.89 Other specified abnormal findings of blood chemistry; K21.9 Gastro-esophageal reflux disease without esophagitis; G43.909 Migraine, unspecified, not intractable, without status migrainosus; J44.9 Chronic obstructive pulmonary disease, unspecified; M19.90 Unspecified osteoarthritis, unspecified site; M79.7 Fibromyalgia; I10 Essential (primary) hypertension; I82.409 Acute embolism and thrombosis of unspecified deep veins of unspecified lower extremity; I82.90 Acute embolism and thrombosis of unspecified vein; F41.1 Generalized anxiety disorder; M43.15 Spondylolisthesis, thoracolumbar region; E44.1 Mild protein-calorie malnutrition; K58.9 Irritable bowel syndrome, unspecified; F17.210 Nicotine dependence, cigarettes, uncomplicated; Z79.899 Other long term (current) drug therapy

== ENCOUNTER 2020-12-10 15:27 | Emergency (ER) | payer OTHER ==
[~2020-12-10] VITALS: Ht 162.5 cm; Wt 90.7 kg
[~2020-12-10 15:27] MED LIST changes: +ZENPEP PO
[2020-12-10 17:06] LABS: BASO # 0.1 10*3/uL (0.0-0.1); BASO % 0.7 % (0.0-1.0); EOS # 0.2 10*3/uL (0.0-0.4); EOS % 1.4 % (1.0-4.0); HEMATOCRIT 46.7 % (37.0-47.0); LYMPH # 3.7 10*3/uL (1.3-4.4); LYMPH % 35.5 % (27.0-41.0); MEAN CELL VOLUME 87.3 fl (81.0-99.0); MEAN CORPUSCULAR HGB 29.3 pg (27.0-31.0); MEAN CORPUSCULAR HGB CONC 33.6 g/dl (33.0-37.0); MEAN PLATELET VOLUME 9.9 fl (9.6-12.3); MONO # 0.5 10*3/uL (0.1-1.0); MONO % 5.1 % (3.0-9.0); NEUT % 57.1 % (47.0-73.0); PLATELET COUNT AUTOMATED 279 10*3/uL (130-400); RED BLOOD COUNT 5.35 10*6/uL (4.10-5.10); RED CELL DISTRI WIDTH 13.7 % (0-14.5); WHITE BLOOD COUNT 10.5 10*3/uL (4.8-10.8)
[2020-12-10 17:27] LABS: ALBUMIN 3.2 gm/dl (3.1-4.5); ALKALINE PHOSPHATASE 96 U/L (45-117); BUN 8 mg/dl (7-24); CHLORIDE 106 mmol/L (98-107); CREATININE 0.94 mg/dL (0.55-1.02); LIPASE 364 U/L (73-393); POTASSIUM 2.8 mmol/L (3.5-5.1); SGOT/AST 11 IU/L (3-35); SGPT/ALT 14 U/L (12-78); SODIUM 140 mmol/L (136-145); TOTAL PROTEIN 7.2 gm/dL (6.4-8.2); TROPONIN I < 0.015 ng/ml (<0.045)
[2020-12-10 18:48] VITALS: BP 132/64
[2020-12-10 19:42] LABS: BILIRUBIN Negative (Negative); BLOOD Negative (Negative); CLARITY Clear (Clear); COLOR Yellow (Yellow); GLUCOSE Negative (Negative); KETONE Negative (Negative); LEUKO ESTERASE Negative (Negative); NITRITE Negative (Negative); SPECIFIC GRAVITY <= 1.005 (1.001-1.030); UROBILINOGEN 0.2 E.U./dl (0.0-1.0)
[2020-12-10] MEDS ORDERED: KLOR-CON M2020 ME1 PO (19:54)
[2020-12-10 20:04] LABS: BACTERIA 1+; RBC 0-2 rbc/hpf (0-2); WBC 0-2 wbc/hpf (0-5)
== END 2020-12-10 19:59 | disposition home or self-care (01) ==
LOC: ED 15:27
PROVIDERS: Nurse Practitioner Family
DX: R11.2 Nausea with vomiting, unspecified (principal); E87.6 Hypokalemia; R10.12 Left upper quadrant pain; J44.9 Chronic obstructive pulmonary disease, unspecified; I10 Essential (primary) hypertension; M10.9 Gout, unspecified; M79.7 Fibromyalgia; K21.9 Gastro-esophageal reflux disease without esophagitis; G43.909 Migraine, unspecified, not intractable, without status migrainosus; F17.200 Nicotine dependence, unspecified, uncomplicated; Z90.49 Acquired absence of other specified parts of digestive tract; Z88.1 Allergy status to other antibiotic agents; Z88.5 Allergy status to narcotic agent; Z91.041 Radiographic dye allergy status; Z88.8 Allergy status to other drugs, medicaments and biological substances

== ENCOUNTER 2020-12-13 16:34 | Emergency (ER) | payer OTHER ==
[~2020-12-13] VITALS: Ht 162.5 cm; Wt 88.9 kg
[~2020-12-13 16:34] MED LIST changes: +KLOR-CON M2020 ME1 PO
[2020-12-13 16:37] VITALS: BP 147/95
[2020-12-13 17:10] LABS: BASO # 0.1 10*3/uL (0.0-0.1); BASO % 0.6 % (0.0-1.0); EOS # 0.2 10*3/uL (0.0-0.4); EOS % 1.8 % (1.0-4.0); HEMATOCRIT 43.9 % (37.0-47.0); LYMPH # 3.8 10*3/uL (1.3-4.4); LYMPH % 33.7 % (27.0-41.0); MEAN CELL VOLUME 85.6 fl (81.0-99.0); MEAN CORPUSCULAR HGB 29.2 pg (27.0-31.0); MEAN CORPUSCULAR HGB CONC 34.2 g/dl (33.0-37.0); MONO # 0.6 10*3/uL (0.1-1.0); NEUT # 6.6 10*3/uL (2.3-7.9); NEUT % 58.7 % (47.0-73.0); PLATELET COUNT AUTOMATED 266 10*3/uL (130-400); RED BLOOD COUNT 5.13 10*6/uL (4.10-5.10); RED CELL DISTRI WIDTH 13.7 % (0-14.5); WHITE BLOOD COUNT 11.2 10*3/uL (4.8-10.8)
[2020-12-13 17:29] LABS: ALBUMIN 3.3 gm/dl (3.1-4.5); ALKALINE PHOSPHATASE 92 U/L (45-117); BUN 10 mg/dl (7-24); CHLORIDE 108 mmol/L (98-107); CREATININE 1.15 mg/dL (0.55-1.02); LIPASE 705 U/L (73-393); POTASSIUM 3.1 mmol/L (3.5-5.1); SGOT/AST 8 IU/L (3-35); SGPT/ALT 15 U/L (12-78); SODIUM 142 mmol/L (136-145); TOTAL PROTEIN 7.1 gm/dL (6.4-8.2)
[2020-12-13 17:32] LABS: TROPONIN I < 0.015 ng/ml (<0.045)
== END 2020-12-13 21:07 | disposition home or self-care (01) ==
LOC: ED 16:34
PROVIDERS: Physician Assistant
DX: R10.13 Epigastric pain (principal); R10.12 Left upper quadrant pain; Z88.8 Allergy status to other drugs, medicaments and biological substances; Z88.5 Allergy status to narcotic agent; Z91.041 Radiographic dye allergy status; Z88.6 Allergy status to analgesic agent; Z88.2 Allergy status to sulfonamides; Z79.899 Other long term (current) drug therapy; Z90.49 Acquired absence of other specified parts of digestive tract; Z98.890 Other specified postprocedural states; Z98.51 Tubal ligation status

== ENCOUNTER 2020-12-28 14:56 | Inpatient (IN) | payer OTHER ==
[~2020-12-28] VITALS: Ht 162.5 cm; Wt 88.0 kg
[2020-12-28 15:06] VITALS: BP 146/98
[2020-12-28 15:59] LABS: BASO # 0.1 10*3/uL (0.0-0.1); BASO % 0.5 % (0.0-1.0); EOS # 0.3 10*3/uL (0.0-0.4); EOS % 3.3 % (1.0-4.0); HEMATOCRIT 47.2 % (37.0-47.0); LYMPH # 4.5 10*3/uL (1.3-4.4); LYMPH % 43.5 % (27.0-41.0); MEAN CELL VOLUME 88.6 fl (81.0-99.0); MEAN CORPUSCULAR HGB 28.9 pg (27.0-31.0); MEAN CORPUSCULAR HGB CONC 32.6 g/dl (33.0-37.0); MEAN PLATELET VOLUME 9.6 fl (9.6-12.3); MONO # 0.5 10*3/uL (0.1-1.0); MONO % 5.1 % (3.0-9.0); NEUT # 4.9 10*3/uL (2.3-7.9); NEUT % 47.4 % (47.0-73.0); PLATELET COUNT AUTOMATED 281 10*3/uL (130-400); RED BLOOD COUNT 5.33 10*6/uL (4.10-5.10); RED CELL DISTRI WIDTH 13.5 % (0-14.5); WHITE BLOOD COUNT 10.2 10*3/uL (4.8-10.8)
[2020-12-28 16:00] VITALS: BP 140/63
[2020-12-28 16:17] LABS: ALBUMIN 3.4 gm/dl (3.1-4.5); ALKALINE PHOSPHATASE 99 U/L (45-117); BUN 8 mg/dl (7-24); CHLORIDE 105 mmol/L (98-107); CREATININE 0.88 mg/dL (0.55-1.02); LIPASE 631 U/L (73-393); POTASSIUM 3.7 mmol/L (3.5-5.1); SGOT/AST 11 IU/L (3-35); SGPT/ALT 15 U/L (12-78); SODIUM 136 mmol/L (136-145); TOTAL PROTEIN 7.1 gm/dL (6.4-8.2)
[2020-12-28 16:18] LABS: TROPONIN I < 0.015 ng/ml (<0.045)
[2020-12-28 20:00] VITALS: BP 140/63
[2020-12-28 20:10] VITALS: BP 140/63
[2020-12-28] MEDS ORDERED: PAXIL20 M1 PO (21:52)
[2020-12-28] MEDS ORDERED: VISTARIL50 MG PO (21:52)
[2020-12-28] MEDS ORDERED: LANTUS SOL100 UNIT/1 SC (21:53)
[2020-12-29] VITALS: BP 130/66
[2020-12-29 06:41] LABS: BASO # 0.1 10*3/uL (0.0-0.1); BASO % 0.8 % (0.0-1.0); EOS # 0.3 10*3/uL (0.0-0.4); HEMATOCRIT 43.2 % (37.0-47.0); LYMPH # 3.5 10*3/uL (1.3-4.4); LYMPH % 39.9 % (27.0-41.0); MEAN CELL VOLUME 88.7 fl (81.0-99.0); MEAN CORPUSCULAR HGB 29.2 pg (27.0-31.0); MEAN CORPUSCULAR HGB CONC 32.9 g/dl (33.0-37.0); MEAN PLATELET VOLUME 10.3 fl (9.6-12.3); MONO # 0.5 10*3/uL (0.1-1.0); MONO % 6.1 % (3.0-9.0); NEUT # 4.4 10*3/uL (2.3-7.9); NEUT % 49.9 % (47.0-73.0); PLATELET COUNT AUTOMATED 239 10*3/uL (130-400); RED BLOOD COUNT 4.87 10*6/uL (4.10-5.10); RED CELL DISTRI WIDTH 13.6 % (0-14.5); WHITE BLOOD COUNT 8.7 10*3/uL (4.8-10.8)
[2020-12-29 07:03] LABS: ALBUMIN 2.9 gm/dl (3.1-4.5); ALKALINE PHOSPHATASE 97 U/L (45-117); BUN 8 mg/dl (7-24); CHLORIDE 112 mmol/L (98-107); LIPASE 335 U/L (73-393); POTASSIUM 4.5 mmol/L (3.5-5.1); SGOT/AST 20 IU/L (3-35); SGPT/ALT 15 U/L (12-78); SODIUM 139 mmol/L (136-145); TOTAL PROTEIN 6.6 gm/dL (6.4-8.2)
[2020-12-29 08:00] VITALS: BP 104/80
[2020-12-29 12:00] VITALS: BP 110/84; BP 153/95
[2020-12-29 16:00] VITALS: BP 118/63
[2020-12-29 20:00] VITALS: BP 114/68
[2020-12-30] VITALS: BP 112/71
[2020-12-30 06:21] LABS: BUN 7 mg/dl (7-24); CHLORIDE 113 mmol/L (98-107); CREATININE 0.84 mg/dL (0.55-1.02); SODIUM 141 mmol/L (136-145)
[2020-12-30 06:29] LABS: BASO # 0.1 10*3/uL (0.0-0.1); BASO % 0.6 % (0.0-1.0); EOS # 0.4 10*3/uL (0.0-0.4); EOS % 5.1 % (1.0-4.0); HEMATOCRIT 41.1 % (37.0-47.0); LYMPH # 3.9 10*3/uL (1.3-4.4); LYMPH % 45.8 % (27.0-41.0); MEAN CELL VOLUME 89.3 fl (81.0-99.0); MEAN CORPUSCULAR HGB 29.1 pg (27.0-31.0); MEAN CORPUSCULAR HGB CONC 32.6 g/dl (33.0-37.0); MONO # 0.5 10*3/uL (0.1-1.0); MONO % 6.2 % (3.0-9.0); NEUT # 3.6 10*3/uL (2.3-7.9); NEUT % 42.1 % (47.0-73.0); PLATELET COUNT AUTOMATED 228 10*3/uL (130-400); RED CELL DISTRI WIDTH 13.8 % (0-14.5); WHITE BLOOD COUNT 8.5 10*3/uL (4.8-10.8)
[2020-12-30 08:00] VITALS: BP 136/92
[2020-12-30 12:00] VITALS: BP 132/63
[2020-12-30 16:00] VITALS: BP 136/69
[2020-12-30 20:00] VITALS: BP 146/95
[2020-12-31] VITALS: BP 161/88
== END 2020-12-31 00:35 | disposition left against medical advice (07) | DRG 282 ==
LOC: ED 14:56 → 5E 18:52 → EDHOLD 18:52 → 5E 19:25
PROVIDERS: Emergency Medicine; Internal Medicine; ADMIT Internal Medicine; ATTEND Internal Medicine
DX: K85.90 Acute pancreatitis without necrosis or infection, unspecified (principal); K86.1 Other chronic pancreatitis; G43.909 Migraine, unspecified, not intractable, without status migrainosus; R53.82 Chronic fatigue, unspecified; E83.41 Hypermagnesemia; M79.7 Fibromyalgia; K21.9 Gastro-esophageal reflux disease without esophagitis; J44.9 Chronic obstructive pulmonary disease, unspecified; M19.90 Unspecified osteoarthritis, unspecified site; F41.1 Generalized anxiety disorder; F17.210 Nicotine dependence, cigarettes, uncomplicated; K58.0 Irritable bowel syndrome with diarrhea; I10 Essential (primary) hypertension; I82.C12 Acute embolism and thrombosis of left internal jugular vein; E11.65 Type 2 diabetes mellitus with hyperglycemia; Z79.4 Long term (current) use of insulin; Z86.718 Personal history of other venous thrombosis and embolism; Z90.49 Acquired absence of other specified parts of digestive tract; Z98.51 Tubal ligation status; Z82.49 Family history of ischemic heart disease and other diseases of the circulatory system; Z80.0 Family history of malignant neoplasm of digestive organs; Z88.1 Allergy status to other antibiotic agents; Z88.5 Allergy status to narcotic agent; Z91.041 Radiographic dye allergy status; Z88.6 Allergy status to analgesic agent; Z88.2 Allergy status to sulfonamides; Z83.3 Family history of diabetes mellitus; Z82.5 Family history of asthma and other chronic lower respiratory diseases; Z53.29 Procedure and treatment not carried out because of patient's decision for other reasons

== ENCOUNTER 2021-02-09 10:51 | Inpatient (IN) | payer OTHER ==
[~2021-02-09] VITALS: Ht 165.1 cm; Wt 86.2 kg
[~2021-02-09 10:51] MED LIST changes: +LANTUS SOL100 UNIT/1 SC; +PAXIL20 M1 PO; +VISTARIL50 MG PO
[2021-02-09 11:30] VITALS: BP 137/70
[2021-02-09 12:16] LABS: BASO # 0.1 10*3/uL (0.0-0.1); EOS # 0.4 10*3/uL (0.0-0.4); EOS % 4.4 % (1.0-4.0); HEMATOCRIT 47.2 % (37.0-47.0); LYMPH # 2.5 10*3/uL (1.3-4.4); LYMPH % 31.5 % (27.0-41.0); MEAN CELL VOLUME 87.4 fl (81.0-99.0); MEAN CORPUSCULAR HGB 28.9 pg (27.0-31.0); MEAN CORPUSCULAR HGB CONC 33.1 g/dl (33.0-37.0); MEAN PLATELET VOLUME 9.3 fl (9.6-12.3); MONO # 0.4 10*3/uL (0.1-1.0); MONO % 4.7 % (3.0-9.0); NEUT # 4.7 10*3/uL (2.3-7.9); NEUT % 58.3 % (47.0-73.0); PLATELET COUNT AUTOMATED 269 10*3/uL (130-400); RED CELL DISTRI WIDTH 13.3 % (0-14.5)
[2021-02-09 12:40] LABS: ALBUMIN 3.2 gm/dl (3.1-4.5); ALKALINE PHOSPHATASE 105 U/L (45-117); BUN 8 mg/dl (7-24); CHLORIDE 108 mmol/L (98-107); CREATININE 0.89 mg/dL (0.55-1.02); POTASSIUM 3.8 mmol/L (3.5-5.1); SGOT/AST 11 IU/L (3-35); SGPT/ALT 17 U/L (12-78); SODIUM 138 mmol/L (136-145); TOTAL PROTEIN 7.2 gm/dL (6.4-8.2)
[2021-02-09 12:42] LABS: TROPONIN I < 0.015 ng/ml (<0.045)
== END 2021-02-09 15:49 | disposition left against medical advice (07) | DRG 203 ==
LOC: ED 10:51 → EDHOLD 14:22
PROVIDERS: Emergency Medicine; ADMIT Internal Medicine; ATTEND Internal Medicine
DX: R07.9 Chest pain, unspecified (principal); F43.10 Post-traumatic stress disorder, unspecified; M19.90 Unspecified osteoarthritis, unspecified site; J44.9 Chronic obstructive pulmonary disease, unspecified; F41.1 Generalized anxiety disorder; K21.9 Gastro-esophageal reflux disease without esophagitis; I10 Essential (primary) hypertension; G43.909 Migraine, unspecified, not intractable, without status migrainosus; F17.210 Nicotine dependence, cigarettes, uncomplicated; Z53.29 Procedure and treatment not carried out because of patient's decision for other reasons; E11.9 Type 2 diabetes mellitus without complications; M43.10 Spondylolisthesis, site unspecified; K86.1 Other chronic pancreatitis; Z88.1 Allergy status to other antibiotic agents; Z88.5 Allergy status to narcotic agent; Z88.2 Allergy status to sulfonamides; Z88.6 Allergy status to analgesic agent; Z91.041 Radiographic dye allergy status; Z90.49 Acquired absence of other specified parts of digestive tract; Z98.51 Tubal ligation status; Z82.49 Family history of ischemic heart disease and other diseases of the circulatory system; Z80.0 Family history of malignant neoplasm of digestive organs; Z82.5 Family history of asthma and other chronic lower respiratory diseases; Z83.3 Family history of diabetes mellitus; Z86.718 Personal history of other venous thrombosis and embolism

== ENCOUNTER → 2021-03-22 | Outpatient (CLI) | payer OTHER | END | disposition home or self-care (01) | LOC: RAD 15:30 | PROVIDERS: ATTEND Nurse Practitioner Primary Care | DX: M79.642 Pain in left hand (principal) ==

== ENCOUNTER → 2021-06-16 | Outpatient (CLI) | payer OTHER | END | disposition home or self-care (01) | LOC: CT 06-14 10:00 | PROVIDERS: ATTEND Orthopaedic Surgery | DX: K57.30 Diverticulosis of large intestine without perforation or abscess without bleeding (principal); D35.02 Benign neoplasm of left adrenal gland; M43.16 Spondylolisthesis, lumbar region; R18.8 Other ascites ==

== ENCOUNTER 2021-07-06 11:03 | Emergency (ER) | payer OTHER ==
[~2021-07-06] VITALS: Wt 85.3 kg
[2021-07-06 11:47] LABS: HEMATOCRIT 43.8 % (37.0-47.0); MEAN CELL VOLUME 87.6 fl (81.0-99.0); MEAN CORPUSCULAR HGB 29.2 pg (27.0-31.0); MEAN CORPUSCULAR HGB CONC 33.3 g/dl (33.0-37.0); MEAN PLATELET VOLUME 10.4 fl (9.6-12.3); PLATELET COUNT AUTOMATED 313 10*3/uL (130-400); RED CELL DISTRI WIDTH 15.8 % (0-14.5)
[2021-07-06 11:49] LABS: WHITE BLOOD COUNT 19.9 10*3/uL (4.8-10.8)
[2021-07-06 11:59] LABS: ACT PARTIAL THROMBO TIME 25.8 SECONDS (20.0-32.1); INTERNATIONAL NORM RATIO 0.9 (2.0-3.5)
[2021-07-06 12:03] LABS: ALKALINE PHOSPHATASE 81 U/L (45-117); BUN 13 mg/dl (7-24); CHLORIDE 107 mmol/L (98-107); CREATININE 0.86 mg/dL (0.55-1.02); POTASSIUM 3.3 mmol/L (3.5-5.1); SGOT/AST 14 IU/L (3-35); SGPT/ALT 22 U/L (12-78); SODIUM 142 mmol/L (136-145); TOTAL PROTEIN 6.4 gm/dL (6.4-8.2)
[2021-07-06 12:06] LABS: ACANTHOCYTES FEW; HOWELL-JOLLY BODIES FEW; PLATELET SUFFICIENCY NORMAL (NORMAL); SPHEROCYTES FEW; TOTAL CELLS COUNTED 100 #CELLS
[2021-07-06 12:13] VITALS: BP 130/70
== END 2021-07-06 13:40 | disposition left against medical advice (07) ==
LOC: ED 11:03
PROVIDERS: Emergency Medicine
DX: R07.9 Chest pain, unspecified (principal); Z88.1 Allergy status to other antibiotic agents; Z88.8 Allergy status to other drugs, medicaments and biological substances; Z91.041 Radiographic dye allergy status; Z87.891 Personal history of nicotine dependence

== ENCOUNTER 2021-08-12 15:36 | Emergency (ER) | payer OTHER ==
[~2021-08-12] VITALS: Ht 162.5 cm; Wt 85.3 kg
[2021-08-12 15:44] VITALS: BP 147/93
[2021-08-12 16:10] LABS: MEAN CELL VOLUME 88.2 fl (81.0-99.0); MEAN CORPUSCULAR HGB 29.6 pg (27.0-31.0); MEAN CORPUSCULAR HGB CONC 33.6 g/dl (33.0-37.0); MEAN PLATELET VOLUME 10.6 fl (9.6-12.3); PLATELET COUNT AUTOMATED 312 10*3/uL (130-400); RED CELL DISTRI WIDTH 14.6 % (0-14.5); WHITE BLOOD COUNT 12.2 10*3/uL (4.8-10.8)
[2021-08-12 16:26] LABS: ALBUMIN 2.9 gm/dl (3.1-4.5); ALKALINE PHOSPHATASE 86 U/L (45-117); BUN 8 mg/dl (7-24); CHLORIDE 106 mmol/L (98-107); CREATININE 0.86 mg/dL (0.55-1.02); LIPASE 115 U/L (73-393); POTASSIUM 3.7 mmol/L (3.5-5.1); SGOT/AST 12 IU/L (3-35); SGPT/ALT 16 U/L (12-78); SODIUM 137 mmol/L (136-145); TOTAL PROTEIN 6.3 gm/dL (6.4-8.2)
[2021-08-12 16:42] LABS: BASOPHILS 1 % (0-1); TOTAL CELLS COUNTED 100 #CELLS
[2021-08-12 16:43] LABS: BURR CELLS FEW; PLATELET SUFFICIENCY NORMAL (NORMAL)
[2021-08-12 18:20] LABS: BILIRUBIN Negative (Negative); BLOOD Negative (Negative); CLARITY Clear (Clear); COLOR Yellow (Yellow); GLUCOSE Trace (Negative); KETONE Negative (Negative); LEUKO ESTERASE Negative (Negative); NITRITE Negative (Negative); SPECIFIC GRAVITY <= 1.005 (1.001-1.030); UROBILINOGEN 0.2 E.U./dl (0.0-1.0)
[2021-08-12 18:27] LABS: BACTERIA TRACE; EPITHELIAL CELLS 0-2; RBC 0-2 rbc/hpf (0-2); WBC 0-2 wbc/hpf (0-5)
== END 2021-08-12 19:46 | disposition home or self-care (01) ==
LOC: ED 15:36
PROVIDERS: Student in an Organized Health Care Education/Training Program
DX: K57.30 Diverticulosis of large intestine without perforation or abscess without bleeding (principal); D72.829 Elevated white blood cell count, unspecified; E44.1 Mild protein-calorie malnutrition; E87.2 Acidosis; R73.9 Hyperglycemia, unspecified; J44.9 Chronic obstructive pulmonary disease, unspecified; I10 Essential (primary) hypertension; I25.2 Old myocardial infarction; K21.9 Gastro-esophageal reflux disease without esophagitis; J45.909 Unspecified asthma, uncomplicated; G43.909 Migraine, unspecified, not intractable, without status migrainosus; M79.7 Fibromyalgia; Z88.1 Allergy status to other antibiotic agents; Z88.6 Allergy status to analgesic agent; Z91.041 Radiographic dye allergy status; Z88.8 Allergy status to other drugs, medicaments and biological substances; Z90.49 Acquired absence of other specified parts of digestive tract; Z87.891 Personal history of nicotine dependence

== ENCOUNTER 2022-01-02 17:56 | Emergency (ER) | payer OTHER ==
[~2022-01-02] VITALS: Wt 82.6 kg
[2022-01-02 18:56] LABS: BASO # 0.1 10*3/uL (0.0-0.1); BASO % 0.3 % (0.0-1.0); EOS # 0.1 10*3/uL (0.0-0.4); EOS % 0.5 % (1.0-4.0); HEMATOCRIT 44.8 % (37.0-47.0); LYMPH # 3.1 10*3/uL (1.3-4.4); LYMPH % 16.6 % (27.0-41.0); MEAN CELL VOLUME 91.2 fl (81.0-99.0); MEAN CORPUSCULAR HGB 31.2 pg (27.0-31.0); MEAN CORPUSCULAR HGB CONC 34.2 g/dl (33.0-37.0); MEAN PLATELET VOLUME 11.3 fl (9.6-12.3); MONO # 1.1 10*3/uL (0.1-1.0); MONO % 6.1 % (3.0-9.0); NEUT # 14.1 10*3/uL (2.3-7.9); NEUT % 76.1 % (47.0-73.0); PLATELET COUNT AUTOMATED 256 10*3/uL (130-400); RED BLOOD COUNT 4.91 10*6/uL (4.10-5.10); WHITE BLOOD COUNT 18.6 10*3/uL (4.8-10.8)
[2022-01-02 19:07] LABS: BILIRUBIN Negative (Negative); BLOOD Negative (Negative); CLARITY Clear (Clear); COLOR Yellow (Yellow); GLUCOSE Negative (Negative); KETONE Trace (Negative); LEUKO ESTERASE Negative (Negative); NITRITE Negative (Negative); UROBILINOGEN 0.2 E.U./dl (0.0-1.0)
[2022-01-02 19:13] LABS: ALKALINE PHOSPHATASE 88 U/L (45-117); BUN 7 mg/dl (7-24); CHLORIDE 107 mmol/L (98-107); CREATININE 0.79 mg/dL (0.55-1.02); LIPASE 87 U/L (73-393); POTASSIUM 3.5 mmol/L (3.5-5.1); SGOT/AST 14 IU/L (3-35); SGPT/ALT 20 U/L (12-78); SODIUM 138 mmol/L (136-145); TOTAL PROTEIN 6.5 gm/dL (6.4-8.2)
[2022-01-02 19:46] LABS: BACTERIA 4+; HYALINE CAST 0-2
[2022-01-02 20:00] VITALS: BP 148/78
[2022-01-02] MEDS ORDERED: PHENERGAN25 M3 PO (21:34)
== END 2022-01-02 21:58 | disposition home or self-care (01) ==
LOC: ED 17:56
PROVIDERS: Nurse Practitioner Family
DX: A08.4 Viral intestinal infection, unspecified (principal); Z88.1 Allergy status to other antibiotic agents; Z88.8 Allergy status to other drugs, medicaments and biological substances; Z91.041 Radiographic dye allergy status; Z90.49 Acquired absence of other specified parts of digestive tract; Z98.890 Other specified postprocedural states; Z98.51 Tubal ligation status; Z87.891 Personal history of nicotine dependence

== ENCOUNTER 2022-02-03 12:21 | Emergency (ER) | payer OTHER ==
[~2022-02-03] VITALS: Wt 79.4 kg
[2022-02-03 12:22] VITALS: BP 135/75
[2022-02-03 13:16] LABS: BASO # 0.1 10*3/uL (0.0-0.1); BASO % 0.4 % (0.0-1.0); EOS % 0.2 % (1.0-4.0); HEMATOCRIT 45.5 % (37.0-47.0); LYMPH % 16.5 % (27.0-41.0); MEAN CELL VOLUME 91.4 fl (81.0-99.0); MEAN CORPUSCULAR HGB 30.7 pg (27.0-31.0); MEAN CORPUSCULAR HGB CONC 33.6 g/dl (33.0-37.0); MEAN PLATELET VOLUME 11.2 fl (9.6-12.3); MONO # 0.5 10*3/uL (0.1-1.0); MONO % 4.4 % (3.0-9.0); NEUT # 9.3 10*3/uL (2.3-7.9); NEUT % 78.2 % (47.0-73.0); PLATELET COUNT AUTOMATED 266 10*3/uL (130-400); RED BLOOD COUNT 4.98 10*6/uL (4.10-5.10); RED CELL DISTRI WIDTH 13.4 % (0-14.5); WHITE BLOOD COUNT 11.9 10*3/uL (4.8-10.8)
[2022-02-03 13:32] LABS: ALKALINE PHOSPHATASE 105 U/L (45-117); BUN 10 mg/dl (7-24); CHLORIDE 107 mmol/L (98-107); CREATININE 0.73 mg/dL (0.55-1.02); LIPASE 79 U/L (73-393); POTASSIUM 3.8 mmol/L (3.5-5.1); SGOT/AST 22 IU/L (3-35); SGPT/ALT 16 U/L (12-78); SODIUM 139 mmol/L (136-145); TOTAL PROTEIN 6.9 gm/dL (6.4-8.2)
[2022-02-03 13:35] LABS: BILIRUBIN Negative (Negative); BLOOD Negative (Negative); CLARITY Cloudy (Clear); COLOR Dark Yellow (Yellow); GLUCOSE 2+ (Negative); KETONE 3+ (Negative); PH 5.5 (4.5-8.0); SPECIFIC GRAVITY 1.025 (1.001-1.030)
[2022-02-03 13:36] LABS: BACTERIA 2+; LEUKO ESTERASE Negative (Negative); MUCOUS 1+; NITRITE Negative (Negative)
== END 2022-02-03 19:22 | disposition left against medical advice (07) ==
LOC: ED 12:21
PROVIDERS: Nurse Practitioner Family
DX: R73.9 Hyperglycemia, unspecified (principal); K57.92 Diverticulitis of intestine, part unspecified, without perforation or abscess without bleeding; K21.9 Gastro-esophageal reflux disease without esophagitis; J44.9 Chronic obstructive pulmonary disease, unspecified; G43.909 Migraine, unspecified, not intractable, without status migrainosus; F17.200 Nicotine dependence, unspecified, uncomplicated; Z90.49 Acquired absence of other specified parts of digestive tract; Z98.890 Other specified postprocedural states; Z98.51 Tubal ligation status; Z88.8 Allergy status to other drugs, medicaments and biological substances; Z91.041 Radiographic dye allergy status; Z88.1 Allergy status to other antibiotic agents

== ENCOUNTER 2022-02-08 01:10 | Inpatient (IN) | payer OTHER ==
[~2022-02-08] VITALS: Ht 165.1 cm; Wt 77.1 kg
[2022-02-08 01:21] VITALS: BP 145/87
[2022-02-08 01:53] LABS: HEMATOCRIT 44.5 % (37.0-47.0); MEAN CELL VOLUME 92.1 fl (81.0-99.0); MEAN CORPUSCULAR HGB 30.4 pg (27.0-31.0); MEAN PLATELET VOLUME 10.7 fl (9.6-12.3); PLATELET COUNT AUTOMATED 364 10*3/uL (130-400); RED BLOOD COUNT 4.83 10*6/uL (4.10-5.10); RED CELL DISTRI WIDTH 13.5 % (0-14.5); WHITE BLOOD COUNT 14.1 10*3/uL (4.8-10.8)
[2022-02-08 01:53] LABS: BILIRUBIN Negative (Negative); BLOOD Negative (Negative); CLARITY Clear (Clear); COLOR Yellow (Yellow); GLUCOSE Negative (Negative); KETONE Negative (Negative); LEUKO ESTERASE Negative (Negative); NITRITE Negative (Negative); SPECIFIC GRAVITY <= 1.005 (1.001-1.030); UROBILINOGEN 0.2 E.U./dl (0.0-1.0)
[2022-02-08 01:55] LABS: MANUAL DIFF REFLEX YES
[2022-02-08 02:11] LABS: ALKALINE PHOSPHATASE 89 U/L (45-117); BUN 7 mg/dl (7-24); CHLORIDE 109 mmol/L (98-107); CREATININE 0.75 mg/dL (0.55-1.02); POTASSIUM 3.4 mmol/L (3.5-5.1); SGOT/AST 11 IU/L (3-35); SGPT/ALT 12 U/L (12-78); SODIUM 142 mmol/L (136-145); TOTAL PROTEIN 6.6 gm/dL (6.4-8.2)
[2022-02-08] MEDS ORDERED: LANTUS SOL100 UNIT/1 SC (02:11)
[2022-02-08] MEDS ORDERED: HUMALOG100 UNIT/1 SC (02:11)
[2022-02-08 02:14] LABS: EPITHELIAL CELLS 16-20; RBC 0-2 rbc/hpf (0-2); WBC 0-2 wbc/hpf (0-5)
[2022-02-08 02:17] LABS: ATYPICAL LYMPHS 3 % (0-0); TOTAL CELLS COUNTED 100 #CELLS
[2022-02-08 02:18] LABS: PLATELET SUFFICIENCY NORMAL (NORMAL)
[2022-02-08 02:53] VITALS: BP 108/61
[2022-02-08 03:56] VITALS: BP 108/52
[2022-02-08 04:38] VITALS: BP 117/52
[2022-02-08 06:23] VITALS: BP 114/67
== END 2022-02-08 08:38 | disposition left against medical advice (07) | DRG 720 ==
LOC: ED 01:10 → EDHOLD 07:03
PROVIDERS: Internal Medicine; ADMIT Internal Medicine; ATTEND Internal Medicine
DX: A41.9 Sepsis, unspecified organism (principal); E87.6 Hypokalemia; Z53.29 Procedure and treatment not carried out because of patient's decision for other reasons; K57.92 Diverticulitis of intestine, part unspecified, without perforation or abscess without bleeding; Z88.8 Allergy status to other drugs, medicaments and biological substances; Z88.6 Allergy status to analgesic agent; Z88.1 Allergy status to other antibiotic agents; Z91.041 Radiographic dye allergy status; Z88.2 Allergy status to sulfonamides; Z90.49 Acquired absence of other specified parts of digestive tract; Z98.51 Tubal ligation status; Z87.891 Personal history of nicotine dependence; Z82.49 Family history of ischemic heart disease and other diseases of the circulatory system; Z80.0 Family history of malignant neoplasm of digestive organs

== ENCOUNTER 2022-04-02 23:55 | Emergency (ER) | payer OTHER ==
[~2022-04-02 23:55] MED LIST changes: +HUMALOG100 UNIT/1 SC
[2022-04-03 00:06] VITALS: BP 175/80
[2022-04-03 00:37] LABS: BASO # 0.1 10*3/uL (0.0-0.1); BASO % 0.6 % (0.0-1.0); EOS # 0.2 10*3/uL (0.0-0.4); EOS % 1.8 % (1.0-4.0); HEMATOCRIT 45.1 % (37.0-47.0); LYMPH # 4.3 10*3/uL (1.3-4.4); LYMPH % 34.5 % (27.0-41.0); MEAN CELL VOLUME 93.2 fl (81.0-99.0); MEAN CORPUSCULAR HGB 30.4 pg (27.0-31.0); MEAN CORPUSCULAR HGB CONC 32.6 g/dl (33.0-37.0); MEAN PLATELET VOLUME 10.7 fl (9.6-12.3); MONO % 8.1 % (3.0-9.0); NEUT # 6.9 10*3/uL (2.3-7.9); NEUT % 54.7 % (47.0-73.0); PLATELET COUNT AUTOMATED 283 10*3/uL (130-400); RED BLOOD COUNT 4.84 10*6/uL (4.10-5.10); WHITE BLOOD COUNT 12.5 10*3/uL (4.8-10.8)
[2022-04-03 00:48] LABS: ACT PARTIAL THROMBO TIME 31.5 SECONDS (20.0-32.1)
[2022-04-03 00:53] LABS: ALKALINE PHOSPHATASE 82 U/L (45-117); BUN 9 mg/dl (7-24); CHLORIDE 105 mmol/L (98-107); CREATININE 0.98 mg/dL (0.55-1.02); POTASSIUM 3.5 mmol/L (3.5-5.1); SGOT/AST 13 IU/L (3-35); SGPT/ALT 14 U/L (12-78); SODIUM 139 mmol/L (136-145); TOTAL PROTEIN 6.5 gm/dL (6.4-8.2)
== END 2022-04-03 02:39 | disposition home or self-care (01) ==
LOC: ED 23:55
PROVIDERS: Emergency Medicine
DX: R07.89 Other chest pain (principal); R11.0 Nausea; I25.2 Old myocardial infarction; Z88.1 Allergy status to other antibiotic agents; Z88.5 Allergy status to narcotic agent; Z91.041 Radiographic dye allergy status; Z88.6 Allergy status to analgesic agent; Z88.2 Allergy status to sulfonamides; Z79.4 Long term (current) use of insulin; Z90.49 Acquired absence of other specified parts of digestive tract; Z98.890 Other specified postprocedural states; Z98.51 Tubal ligation status; Z87.891 Personal history of nicotine dependence

== ENCOUNTER 2022-04-15 11:59 | Emergency (ER) | payer OTHER ==
[~2022-04-15] VITALS: Ht 162.5 cm; Wt 80.7 kg
[2022-04-15 12:25] VITALS: BP 152/71
[2022-04-15 13:11] LABS: BASO # 0.1 10*3/uL (0.0-0.1); BASO % 0.8 % (0.0-1.0); EOS # 0.1 10*3/uL (0.0-0.4); EOS % 0.9 % (1.0-4.0); HEMATOCRIT 45.1 % (37.0-47.0); LYMPH # 3.4 10*3/uL (1.3-4.4); LYMPH % 32.1 % (27.0-41.0); MEAN CELL VOLUME 90.7 fl (81.0-99.0); MEAN CORPUSCULAR HGB 30.8 pg (27.0-31.0); MEAN CORPUSCULAR HGB CONC 33.9 g/dl (33.0-37.0); MEAN PLATELET VOLUME 10.3 fl (9.6-12.3); MONO # 0.7 10*3/uL (0.1-1.0); MONO % 6.4 % (3.0-9.0); NEUT # 6.4 10*3/uL (2.3-7.9); NEUT % 59.6 % (47.0-73.0); PLATELET COUNT AUTOMATED 303 10*3/uL (130-400); RED BLOOD COUNT 4.97 10*6/uL (4.10-5.10); WHITE BLOOD COUNT 10.7 10*3/uL (4.8-10.8)
[2022-04-15 13:23] LABS: ACT PARTIAL THROMBO TIME 29.9 SECONDS (20.0-32.1); INTERNATIONAL NORM RATIO 0.9 (2.0-3.5)
[2022-04-15 13:28] LABS: ALKALINE PHOSPHATASE 108 U/L (45-117); BUN 5 mg/dl (7-24); CHLORIDE 110 mmol/L (98-107); POTASSIUM 3.6 mmol/L (3.5-5.1); SGOT/AST 14 IU/L (3-35); SGPT/ALT 24 U/L (12-78); SODIUM 141 mmol/L (136-145); TOTAL PROTEIN 6.7 gm/dL (6.4-8.2)
== END 2022-04-15 14:32 | disposition home or self-care (01) ==
LOC: ED 11:59
PROVIDERS: Internal Medicine
DX: R10.13 Epigastric pain (principal); R06.02 Shortness of breath; R07.9 Chest pain, unspecified; Z88.1 Allergy status to other antibiotic agents; Z91.041 Radiographic dye allergy status; Z88.8 Allergy status to other drugs, medicaments and biological substances; Z90.49 Acquired absence of other specified parts of digestive tract; Z98.51 Tubal ligation status; Z98.890 Other specified postprocedural states; Z87.891 Personal history of nicotine dependence

== ENCOUNTER 2022-04-23 22:17 | Emergency (ER) | payer OTHER ==
[~2022-04-23] VITALS: Ht 162.5 cm; Wt 81.2 kg
[2022-04-23 22:34] VITALS: BP 181/89
[2022-04-23 22:54] LABS: BASO % 0.2 % (0.0-1.0); HEMATOCRIT 46.6 % (37.0-47.0); LYMPH # 1.7 10*3/uL (1.3-4.4); LYMPH % 13.6 % (27.0-41.0); MEAN CELL VOLUME 91.4 fl (81.0-99.0); MEAN CORPUSCULAR HGB 31.2 pg (27.0-31.0); MEAN CORPUSCULAR HGB CONC 34.1 g/dl (33.0-37.0); MEAN PLATELET VOLUME 10.3 fl (9.6-12.3); MONO # 0.2 10*3/uL (0.1-1.0); MONO % 1.7 % (3.0-9.0); NEUT # 10.3 10*3/uL (2.3-7.9); NEUT % 84.2 % (47.0-73.0); PLATELET COUNT AUTOMATED 344 10*3/uL (130-400); RED CELL DISTRI WIDTH 14.2 % (0-14.5); WHITE BLOOD COUNT 12.2 10*3/uL (4.8-10.8)
[2022-04-23 23:09] LABS: ALKALINE PHOSPHATASE 108 U/L (45-117); BUN 10 mg/dl (7-24); CHLORIDE 106 mmol/L (98-107); CREATININE 0.95 mg/dL (0.55-1.02); LIPASE 214 U/L (73-393); POTASSIUM 3.6 mmol/L (3.5-5.1); SGOT/AST 16 IU/L (3-35); SGPT/ALT 24 U/L (12-78); SODIUM 138 mmol/L (136-145); TOTAL PROTEIN 7.2 gm/dL (6.4-8.2)
[2022-04-24] MEDS ORDERED: AMOX-CLAV 875-1 EACH PO (01:20)
== END 2022-04-24 01:33 | disposition home or self-care (01) ==
LOC: ED 22:17
PROVIDERS: Physician Assistant
DX: A41.9 Sepsis, unspecified organism (principal); R73.9 Hyperglycemia, unspecified; K57.92 Diverticulitis of intestine, part unspecified, without perforation or abscess without bleeding; G43.909 Migraine, unspecified, not intractable, without status migrainosus; K21.9 Gastro-esophageal reflux disease without esophagitis; J45.909 Unspecified asthma, uncomplicated; J44.9 Chronic obstructive pulmonary disease, unspecified; I10 Essential (primary) hypertension; I25.2 Old myocardial infarction; Z88.1 Allergy status to other antibiotic agents; Z88.8 Allergy status to other drugs, medicaments and biological substances; Z91.041 Radiographic dye allergy status; Z79.899 Other long term (current) drug therapy; Z90.49 Acquired absence of other specified parts of digestive tract; Z98.51 Tubal ligation status; Z87.891 Personal history of nicotine dependence

== ENCOUNTER 2022-05-24 14:32 | Emergency (ER) | payer OTHER ==
[~2022-05-24] VITALS: Ht 162.5 cm; Wt 81.6 kg
[~2022-05-24 14:32] MED LIST changes: +AMOX-CLAV 875-1 EACH PO; +PAROXETINE HCL20 MG PO; +ROSUVASTATIN CA10 MG PO
[2022-05-24 14:57] VITALS: BP 136/60
[2022-05-24 15:49] LABS: BASO # 0.1 10*3/uL (0.0-0.1); BASO % 0.6 % (0.0-1.0); EOS # 0.2 10*3/uL (0.0-0.4); EOS % 2.2 % (1.0-4.0); LYMPH # 4.7 10*3/uL (1.3-4.4); LYMPH % 44.3 % (27.0-41.0); MEAN CELL VOLUME 91.6 fl (81.0-99.0); MEAN CORPUSCULAR HGB 30.8 pg (27.0-31.0); MEAN CORPUSCULAR HGB CONC 33.6 g/dl (33.0-37.0); MEAN PLATELET VOLUME 10.4 fl (9.6-12.3); MONO # 0.8 10*3/uL (0.1-1.0); MONO % 7.7 % (3.0-9.0); NEUT # 4.8 10*3/uL (2.3-7.9); PLATELET COUNT AUTOMATED 333 10*3/uL (130-400); RED BLOOD COUNT 4.91 10*6/uL (4.10-5.10); RED CELL DISTRI WIDTH 14.2 % (0-14.5); WHITE BLOOD COUNT 10.7 10*3/uL (4.8-10.8)
[2022-05-24 16:04] LABS: ALKALINE PHOSPHATASE 106 U/L (45-117); BUN 9 mg/dl (7-24); CHLORIDE 109 mmol/L (98-107); CREATININE 0.79 mg/dL (0.55-1.02); LIPASE 133 U/L (73-393); POTASSIUM 3.8 mmol/L (3.5-5.1); SGOT/AST 17 IU/L (3-35); SGPT/ALT 21 U/L (12-78); SODIUM 143 mmol/L (136-145); TOTAL PROTEIN 7.3 gm/dL (6.4-8.2)
== END 2022-05-24 17:47 | disposition left against medical advice (07) ==
LOC: ED 14:32
PROVIDERS: Physician Assistant
DX: R10.32 Left lower quadrant pain (principal); R11.0 Nausea; Z88.1 Allergy status to other antibiotic agents; Z91.041 Radiographic dye allergy status; Z88.8 Allergy status to other drugs, medicaments and biological substances; Z79.899 Other long term (current) drug therapy; Z98.890 Other specified postprocedural states; Z90.49 Acquired absence of other specified parts of digestive tract; Z98.51 Tubal ligation status; Z87.891 Personal history of nicotine dependence

== ENCOUNTER 2022-08-01 11:17 | Emergency (ER) | payer OTHER ==
[~2022-08-01] VITALS: Wt 82.6 kg
[2022-08-01 11:30] VITALS: BP 124/88
[2022-08-01] MEDS ORDERED: VENLAFAXINE H37.5 M5 PO (11:41)
[2022-08-01 11:43] LABS: BILIRUBIN Negative (Negative); BLOOD Negative (Negative); CLARITY Clear (Clear); COLOR Yellow (Yellow); GLUCOSE Negative (Negative); KETONE Negative (Negative); LEUKO ESTERASE Negative (Negative); NITRITE Negative (Negative); SPECIFIC GRAVITY <= 1.005 (1.001-1.030)
[2022-08-01 12:03] LABS: BACTERIA TRACE
[2022-08-01 13:13] LABS: ALKALINE PHOSPHATASE 91 U/L (46-116); BUN 6 mg/dl (9-23); CHLORIDE 108 mmol/L (98-107); LIPASE 31 U/L (12-53); POTASSIUM 4.6 mmol/L (3.4-5.1); SGPT/ALT 11 U/L (10-49); TOTAL PROTEIN 6.9 gm/dL (6.0-8.0)
[2022-08-01 13:54] LABS: BASO # 0.1 10*3/uL (0.0-0.1); BASO % 0.5 % (0.0-1.0); EOS # 0.1 10*3/uL (0.0-0.4); EOS % 0.9 % (1.0-4.0); LYMPH # 3.1 10*3/uL (1.3-4.4); MEAN CORPUSCULAR HGB 29.9 pg (27.0-31.0); MEAN CORPUSCULAR HGB CONC 32.6 g/dl (33.0-37.0); MEAN PLATELET VOLUME 9.9 fl (9.6-12.3); MONO # 0.9 10*3/uL (0.1-1.0); MONO % 6.3 % (3.0-9.0); NEUT # 9.8 10*3/uL (2.3-7.9); PLATELET COUNT AUTOMATED 289 10*3/uL (130-400); RED BLOOD COUNT 5.11 10*6/uL (4.10-5.10); RED CELL DISTRI WIDTH 13.4 % (0-14.5)
[2022-08-01] MEDS ORDERED: AMOX-CLAV 875-1 EACH PO (14:33)
== END 2022-08-01 14:37 | disposition home or self-care (01) ==
LOC: ED 11:17
PROVIDERS: Physician Assistant
DX: R10.32 Left lower quadrant pain (principal); Z88.2 Allergy status to sulfonamides; Z88.5 Allergy status to narcotic agent; Z90.49 Acquired absence of other specified parts of digestive tract; Z98.51 Tubal ligation status; Z90.89 Acquired absence of other organs; F17.200 Nicotine dependence, unspecified, uncomplicated; Z91.041 Radiographic dye allergy status; Z88.8 Allergy status to other drugs, medicaments and biological substances

== ENCOUNTER 2022-08-08 16:40 | Emergency (ER) | payer OTHER ==
[~2022-08-08] VITALS: Wt 83.9 kg
[~2022-08-08 16:40] MED LIST changes: +VENLAFAXINE H37.5 M5 PO
[2022-08-08 16:55] VITALS: BP 144/93
== END 2022-08-08 18:25 | disposition left against medical advice (07) ==
LOC: ED 16:40
DX: R07.9 Chest pain, unspecified (principal); Z88.1 Allergy status to other antibiotic agents; Z88.8 Allergy status to other drugs, medicaments and biological substances; Z91.041 Radiographic dye allergy status; Z79.899 Other long term (current) drug therapy; Z90.49 Acquired absence of other specified parts of digestive tract; Z98.51 Tubal ligation status; Z98.890 Other specified postprocedural states; Z87.891 Personal history of nicotine dependence

== ENCOUNTER 2022-09-21 01:52 | Emergency (ER) | payer MEDICAID ==
[~2022-09-21] VITALS: Ht 162.5 cm; Wt 84.9 kg
[2022-09-21 01:57] VITALS: BP 169/84
[2022-09-21 02:40] LABS: HEMATOCRIT 44.6 % (37.0-47.0); MEAN CELL VOLUME 90.5 fl (81.0-99.0); MEAN CORPUSCULAR HGB 30.2 pg (27.0-31.0); MEAN CORPUSCULAR HGB CONC 33.4 g/dl (33.0-37.0); MEAN PLATELET VOLUME 10.5 fl (9.6-12.3); PLATELET COUNT AUTOMATED 281 10*3/uL (130-400); RED BLOOD COUNT 4.93 10*6/uL (4.10-5.10); RED CELL DISTRI WIDTH 13.6 % (0-14.5); WHITE BLOOD COUNT 12.9 10*3/uL (4.8-10.8)
[2022-09-21 02:53] LABS: MANUAL DIFF REFLEX YES
[2022-09-21 02:54] LABS: BILIRUBIN Negative (Negative); BLOOD Negative (Negative); CLARITY Clear (Clear); COLOR Yellow (Yellow); GLUCOSE Negative (Negative); KETONE Negative (Negative); LEUKO ESTERASE Negative (Negative); NITRITE Negative (Negative); SPECIFIC GRAVITY <= 1.005 (1.001-1.030); UROBILINOGEN 0.2 E.U./dl (0.0-1.0)
[2022-09-21 03:03] LABS: RBC 0-2 rbc/hpf (0-2); WBC 0-2 wbc/hpf (0-5)
[2022-09-21 03:05] LABS: ALKALINE PHOSPHATASE 95 U/L (46-116); BUN 6 mg/dl (9-23); CHLORIDE 107 mmol/L (98-107); LIPASE 40 U/L (12-53); POTASSIUM 3.9 mmol/L (3.4-5.1); SGPT/ALT 11 U/L (10-49); TOTAL PROTEIN 6.8 gm/dL (6.0-8.0)
[2022-09-21 03:06] LABS: ATYPICAL LYMPHS 3 % (0-0); PLATELET SUFFICIENCY NORMAL (NORMAL); TOTAL CELLS COUNTED 100 #CELLS
[2022-09-21] MEDS ORDERED: PHENERGAN25 M3 PO (03:29)
== END 2022-09-21 03:33 | disposition home or self-care (01) ==
LOC: ED 01:52
PROVIDERS: Emergency Medicine
DX: R10.32 Left lower quadrant pain (principal); R11.2 Nausea with vomiting, unspecified; Z88.1 Allergy status to other antibiotic agents; Z91.041 Radiographic dye allergy status; Z88.8 Allergy status to other drugs, medicaments and biological substances; Z79.899 Other long term (current) drug therapy; Z90.49 Acquired absence of other specified parts of digestive tract; Z98.890 Other specified postprocedural states; Z98.51 Tubal ligation status; F17.200 Nicotine dependence, unspecified, uncomplicated

== ENCOUNTER 2022-11-06 23:08 | Emergency (ER) | payer OTHER ==
[~2022-11-06] VITALS: Ht 162.5 cm; Wt 83.5 kg
[2022-11-07 00:03] VITALS: BP 167/82
[2022-11-07 01:15] LABS: BASO # 0.1 10*3/uL (0.0-0.1); BASO % 0.7 % (0.0-1.0); EOS # 0.3 10*3/uL (0.0-0.4); EOS % 2.2 % (1.0-4.0); HEMATOCRIT 43.7 % (37.0-47.0); LYMPH # 4.8 10*3/uL (1.3-4.4); LYMPH % 39.3 % (27.0-41.0); MEAN CELL VOLUME 90.9 fl (81.0-99.0); MEAN CORPUSCULAR HGB CONC 34.1 g/dl (33.0-37.0); MEAN PLATELET VOLUME 10.5 fl (9.6-12.3); MONO # 0.9 10*3/uL (0.1-1.0); MONO % 7.3 % (3.0-9.0); NEUT # 6.2 10*3/uL (2.3-7.9); NEUT % 50.3 % (47.0-73.0); PLATELET COUNT AUTOMATED 286 10*3/uL (130-400); RED BLOOD COUNT 4.81 10*6/uL (4.10-5.10); RED CELL DISTRI WIDTH 14.1 % (0-14.5); WHITE BLOOD COUNT 12.3 10*3/uL (4.8-10.8)
[2022-11-07 01:30] LABS: ALKALINE PHOSPHATASE 91 U/L (46-116); BUN 8 mg/dl (9-23); CHLORIDE 105 mmol/L (98-107); POTASSIUM 3.6 mmol/L (3.4-5.1); TOTAL PROTEIN 6.6 gm/dL (6.0-8.0)
[2022-11-07 01:32] LABS: SGPT/ALT < 7 U/L (10-49)
== END 2022-11-07 02:57 | disposition left against medical advice (07) ==
LOC: ED 23:08
PROVIDERS: Emergency Medicine
DX: R10.32 Left lower quadrant pain (principal); R11.0 Nausea; E87.8 Other disorders of electrolyte and fluid balance, not elsewhere classified; R73.9 Hyperglycemia, unspecified; E83.41 Hypermagnesemia; I10 Essential (primary) hypertension; J44.9 Chronic obstructive pulmonary disease, unspecified; M19.90 Unspecified osteoarthritis, unspecified site; K21.9 Gastro-esophageal reflux disease without esophagitis; F41.9 Anxiety disorder, unspecified; M79.7 Fibromyalgia; G43.909 Migraine, unspecified, not intractable, without status migrainosus; I25.2 Old myocardial infarction; Z88.1 Allergy status to other antibiotic agents; Z88.5 Allergy status to narcotic agent; Z91.041 Radiographic dye allergy status; Z88.2 Allergy status to sulfonamides; Z88.8 Allergy status to other drugs, medicaments and biological substances; Z90.49 Acquired absence of other specified parts of digestive tract; Z98.890 Other specified postprocedural states; Z98.51 Tubal ligation status; F17.200 Nicotine dependence, unspecified, uncomplicated

== ENCOUNTER → 2022-11-07 | Outpatient (CLI) | payer OTHER ==
[~2022-11-07] MED LIST changes: +ONDANSETRON4 MG SL; +PHARMASSURE FO0.4 MG PO
== END | disposition home or self-care (01) ==
LOC: RAD 15:32
PROVIDERS: ATTEND Nurse Practitioner Primary Care
DX: M47.816 Spondylosis without myelopathy or radiculopathy, lumbar region (principal); M25.78 Osteophyte, vertebrae; M47.812 Spondylosis without myelopathy or radiculopathy, cervical region

== ENCOUNTER 2022-11-13 20:46 | Emergency (ER) | payer OTHER ==
[~2022-11-13] VITALS: Wt 83.5 kg
[~2022-11-13 20:46] MED LIST changes: -ONDANSETRON4 MG SL; -PHARMASSURE FO0.4 MG PO
[2022-11-13] MEDS ORDERED: PHARMASSURE FO0.4 MG PO (21:30)
[2022-11-13 22:18] LABS: BASO # 0.1 10*3/uL (0.0-0.1); BASO % 0.7 % (0.0-1.0); EOS # 0.1 10*3/uL (0.0-0.4); EOS % 1.1 % (1.0-4.0); HEMATOCRIT 44.5 % (37.0-47.0); LYMPH # 4.1 10*3/uL (1.3-4.4); LYMPH % 35.8 % (27.0-41.0); MEAN CELL VOLUME 90.6 fl (81.0-99.0); MEAN CORPUSCULAR HGB 30.8 pg (27.0-31.0); MEAN CORPUSCULAR HGB CONC 33.9 g/dl (33.0-37.0); MEAN PLATELET VOLUME 10.6 fl (9.6-12.3); MONO # 0.9 10*3/uL (0.1-1.0); MONO % 7.8 % (3.0-9.0); NEUT # 6.3 10*3/uL (2.3-7.9); NEUT % 54.3 % (47.0-73.0); PLATELET COUNT AUTOMATED 298 10*3/uL (130-400); RED BLOOD COUNT 4.91 10*6/uL (4.10-5.10); RED CELL DISTRI WIDTH 14.2 % (0-14.5); WHITE BLOOD COUNT 11.6 10*3/uL (4.8-10.8)
[2022-11-13 22:29] LABS: ACT PARTIAL THROMBO TIME 27.6 SECONDS (20.0-32.1); INTERNATIONAL NORM RATIO 0.9 (2.0-3.5)
[2022-11-13 22:33] LABS: ALKALINE PHOSPHATASE 90 U/L (46-116); BUN 8 mg/dl (9-23); CHLORIDE 107 mmol/L (98-107); LIPASE 40 U/L (12-53); POTASSIUM 3.6 mmol/L (3.4-5.1); TOTAL PROTEIN 6.7 gm/dL (6.0-8.0)
[2022-11-13 22:38] LABS: SGPT/ALT < 7 U/L (10-49)
[2022-11-13] MEDS ORDERED: ONDANSETRON4 MG SL (23:42)
[2022-11-13] MEDS ORDERED: AMOX-CLAV 875-1 EACH PO (23:42)
[2022-11-14 00:31] VITALS: BP 143/70
== END 2022-11-14 00:40 | disposition home or self-care (01) ==
LOC: ED 20:46
PROVIDERS: Physician Assistant
DX: K52.9 Noninfective gastroenteritis and colitis, unspecified (principal); Z88.1 Allergy status to other antibiotic agents; Z91.041 Radiographic dye allergy status; Z88.8 Allergy status to other drugs, medicaments and biological substances; Z88.2 Allergy status to sulfonamides; Z79.899 Other long term (current) drug therapy; Z90.49 Acquired absence of other specified parts of digestive tract; Z98.51 Tubal ligation status; Z98.890 Other specified postprocedural states; Z87.891 Personal history of nicotine dependence

== ENCOUNTER 2022-11-19 12:54 | Emergency (ER) | payer OTHER ==
[~2022-11-19] VITALS: Ht 162.5 cm; Wt 83.5 kg
[~2022-11-19 12:54] MED LIST changes: +ONDANSETRON4 MG SL; +PHARMASSURE FO0.4 MG PO
[2022-11-19 13:20] VITALS: BP 160/78
[2022-11-19 14:07] LABS: BASO # 0.1 10*3/uL (0.0-0.1); BASO % 0.8 % (0.0-1.0); EOS # 0.2 10*3/uL (0.0-0.4); EOS % 1.4 % (1.0-4.0); HEMATOCRIT 45.5 % (37.0-47.0); LYMPH # 4.6 10*3/uL (1.3-4.4); LYMPH % 41.9 % (27.0-41.0); MEAN CELL VOLUME 91.7 fl (81.0-99.0); MEAN CORPUSCULAR HGB 31.3 pg (27.0-31.0); MEAN CORPUSCULAR HGB CONC 34.1 g/dl (33.0-37.0); MEAN PLATELET VOLUME 10.3 fl (9.6-12.3); MONO # 0.8 10*3/uL (0.1-1.0); MONO % 7.1 % (3.0-9.0); NEUT # 5.4 10*3/uL (2.3-7.9); NEUT % 48.6 % (47.0-73.0); PLATELET COUNT AUTOMATED 289 10*3/uL (130-400); RED BLOOD COUNT 4.96 10*6/uL (4.10-5.10); RED CELL DISTRI WIDTH 14.2 % (0-14.5)
[2022-11-19 14:24] LABS: ALKALINE PHOSPHATASE 92 U/L (46-116); BUN 6 mg/dl (9-23); CHLORIDE 105 mmol/L (98-107); LIPASE 29 U/L (12-53); POTASSIUM 3.7 mmol/L (3.4-5.1); TOTAL PROTEIN 6.7 gm/dL (6.0-8.0)
[2022-11-19 14:25] LABS: ACT PARTIAL THROMBO TIME 25.6 SECONDS (20.0-32.1)
[2022-11-19 14:28] LABS: SGPT/ALT < 7 U/L (10-49)
[2022-11-19] MEDS ORDERED: METRONIDAZOLE500 M1 PO (15:00)
[2022-11-19] MEDS ORDERED: PERCOCET 5-3251 EACH PO (15:00)
[2022-11-19] MEDS ORDERED: PHENERGAN25 M3 PO (15:00)
[2022-11-19] MEDS ORDERED: CEFUROXIME AXE500 MG PO (15:00)
== END 2022-11-19 15:05 | disposition home or self-care (01) ==
LOC: ED 12:54
PROVIDERS: Emergency Medicine
DX: K52.9 Noninfective gastroenteritis and colitis, unspecified (principal); G43.909 Migraine, unspecified, not intractable, without status migrainosus; K21.9 Gastro-esophageal reflux disease without esophagitis; J44.9 Chronic obstructive pulmonary disease, unspecified; F41.9 Anxiety disorder, unspecified; M79.7 Fibromyalgia; M19.90 Unspecified osteoarthritis, unspecified site; I10 Essential (primary) hypertension; M10.9 Gout, unspecified; Z88.1 Allergy status to other antibiotic agents; Z88.5 Allergy status to narcotic agent; Z91.041 Radiographic dye allergy status; Z88.2 Allergy status to sulfonamides; Z88.8 Allergy status to other drugs, medicaments and biological substances; Z90.49 Acquired absence of other specified parts of digestive tract; Z98.51 Tubal ligation status; Z98.890 Other specified postprocedural states; F17.200 Nicotine dependence, unspecified, uncomplicated

== ENCOUNTER 2022-11-20 02:39 | Emergency (ER) | payer OTHER ==
[~2022-11-20 02:39] MED LIST changes: +CEFUROXIME AXE500 MG PO; +METRONIDAZOLE500 M1 PO
[2022-11-20 02:52] VITALS: BP 170/74
== END 2022-11-20 03:30 | disposition home or self-care (01) ==
LOC: ED 02:39
DX: K52.9 Noninfective gastroenteritis and colitis, unspecified (principal); G43.909 Migraine, unspecified, not intractable, without status migrainosus; K21.9 Gastro-esophageal reflux disease without esophagitis; J44.9 Chronic obstructive pulmonary disease, unspecified; F41.9 Anxiety disorder, unspecified; I10 Essential (primary) hypertension; M10.9 Gout, unspecified; Z88.1 Allergy status to other antibiotic agents; Z88.5 Allergy status to narcotic agent; Z91.041 Radiographic dye allergy status; Z88.2 Allergy status to sulfonamides; Z88.8 Allergy status to other drugs, medicaments and biological substances; Z90.49 Acquired absence of other specified parts of digestive tract; Z98.51 Tubal ligation status; Z98.890 Other specified postprocedural states; F17.200 Nicotine dependence, unspecified, uncomplicated

== ENCOUNTER → 2022-12-21 | Outpatient (CLI) | payer OTHER | END | disposition home or self-care (01) | LOC: MRI 11-20 00:35 | PROVIDERS: ATTEND Nurse Practitioner Primary Care | DX: M51.36 Other intervertebral disc degeneration, lumbar region (principal); M43.16 Spondylolisthesis, lumbar region; M43.26 Fusion of spine, lumbar region; G89.29 Other chronic pain; M54.41 Lumbago with sciatica, right side; M54.42 Lumbago with sciatica, left side; M25.78 Osteophyte, vertebrae; Z98.890 Other specified postprocedural states ==

== ENCOUNTER → 2022-12-26 | Outpatient (CLI) | payer OTHER | END | disposition home or self-care (01) | LOC: RAD 15:44 | PROVIDERS: ATTEND Nurse Practitioner Family | DX: M19.042 Primary osteoarthritis, left hand (principal) ==

== ENCOUNTER 2023-01-15 16:16 | Emergency (ER) | payer OTHER ==
[~2023-01-15] VITALS: Ht 162.5 cm; Wt 82.1 kg
[2023-01-15 17:20] LABS: BASO # 0.1 10*3/uL (0.0-0.1); BASO % 0.6 % (0.0-1.0); EOS # 0.2 10*3/uL (0.0-0.4); EOS % 2.1 % (1.0-4.0); HEMATOCRIT 43.6 % (37.0-47.0); LYMPH # 4.9 10*3/uL (1.3-4.4); LYMPH % 42.6 % (27.0-41.0); MEAN CELL VOLUME 91.8 fl (81.0-99.0); MEAN CORPUSCULAR HGB 30.5 pg (27.0-31.0); MEAN CORPUSCULAR HGB CONC 33.3 g/dl (33.0-37.0); MEAN PLATELET VOLUME 10.4 fl (9.6-12.3); MONO # 0.8 10*3/uL (0.1-1.0); MONO % 7.3 % (3.0-9.0); NEUT # 5.5 10*3/uL (2.3-7.9); NEUT % 47.1 % (47.0-73.0); PLATELET COUNT AUTOMATED 268 10*3/uL (130-400); RED BLOOD COUNT 4.75 10*6/uL (4.10-5.10); RED CELL DISTRI WIDTH 13.3 % (0-14.5); WHITE BLOOD COUNT 11.6 10*3/uL (4.8-10.8)
[2023-01-15 17:35] LABS: ACT PARTIAL THROMBO TIME 30.1 SECONDS (20.0-32.1)
[2023-01-15 17:56] LABS: ALKALINE PHOSPHATASE 87 U/L (46-116); BUN 9 mg/dl (9-23); CHLORIDE 107 mmol/L (98-107); LIPASE 38 U/L (12-53); POTASSIUM 3.7 mmol/L (3.4-5.1); SGPT/ALT 8 U/L (10-49); TOTAL PROTEIN 6.7 gm/dL (6.0-8.0)
[2023-01-15 18:56] VITALS: BP 151/69
== END 2023-01-15 19:36 | disposition home or self-care (01) ==
LOC: ED 16:16
PROVIDERS: Emergency Medicine
DX: R07.89 Other chest pain (principal); R79.82 Elevated C-reactive protein (CRP); R11.0 Nausea; G43.909 Migraine, unspecified, not intractable, without status migrainosus; J44.9 Chronic obstructive pulmonary disease, unspecified; K21.9 Gastro-esophageal reflux disease without esophagitis; M79.7 Fibromyalgia; F41.9 Anxiety disorder, unspecified; M10.9 Gout, unspecified; I10 Essential (primary) hypertension; Z88.1 Allergy status to other antibiotic agents; Z88.5 Allergy status to narcotic agent; Z91.041 Radiographic dye allergy status; Z88.2 Allergy status to sulfonamides; Z90.49 Acquired absence of other specified parts of digestive tract; Z98.51 Tubal ligation status; Z98.890 Other specified postprocedural states; F17.200 Nicotine dependence, unspecified, uncomplicated

== ENCOUNTER 2023-03-12 00:27 | Emergency (ER) | payer OTHER ==
[~2023-03-12] VITALS: Ht 167.6 cm; Wt 72.6 kg
[2023-03-12 03:16] LABS: BASO # 0.1 10*3/uL (0.0-0.1); BASO % 0.6 % (0.0-1.0); EOS # 0.2 10*3/uL (0.0-0.4); EOS % 1.1 % (1.0-4.0); HEMATOCRIT 44.2 % (37.0-47.0); LYMPH # 3.8 10*3/uL (1.3-4.4); LYMPH % 28.8 % (27.0-41.0); MEAN CELL VOLUME 89.5 fl (81.0-99.0); MEAN CORPUSCULAR HGB 30.6 pg (27.0-31.0); MEAN CORPUSCULAR HGB CONC 34.2 g/dl (33.0-37.0); MEAN PLATELET VOLUME 10.1 fl (9.6-12.3); MONO # 0.9 10*3/uL (0.1-1.0); MONO % 6.8 % (3.0-9.0); NEUT # 8.3 10*3/uL (2.3-7.9); NEUT % 62.4 % (47.0-73.0); PLATELET COUNT AUTOMATED 291 10*3/uL (130-400); RED BLOOD COUNT 4.94 10*6/uL (4.10-5.10); RED CELL DISTRI WIDTH 13.4 % (0-14.5); WHITE BLOOD COUNT 13.3 10*3/uL (4.8-10.8)
[2023-03-12 03:40] LABS: ALKALINE PHOSPHATASE 92 U/L (46-116); BUN 12 mg/dl (9-23); CHLORIDE 104 mmol/L (98-107); POTASSIUM 4.1 mmol/L (3.4-5.1); TOTAL PROTEIN 6.9 gm/dL (6.0-8.0)
[2023-03-12 03:41] LABS: SGPT/ALT < 7 U/L (10-49)
[2023-03-12 05:36] VITALS: BP 150/78
== END 2023-03-12 05:31 | disposition home or self-care (01) ==
LOC: ED 00:27
PROVIDERS: Emergency Medicine
DX: M54.6 Pain in thoracic spine (principal); G43.909 Migraine, unspecified, not intractable, without status migrainosus; K21.9 Gastro-esophageal reflux disease without esophagitis; J44.9 Chronic obstructive pulmonary disease, unspecified; F41.9 Anxiety disorder, unspecified; I10 Essential (primary) hypertension; M10.9 Gout, unspecified; M19.90 Unspecified osteoarthritis, unspecified site; Z88.1 Allergy status to other antibiotic agents; Z88.5 Allergy status to narcotic agent; Z91.041 Radiographic dye allergy status; Z88.2 Allergy status to sulfonamides; Z90.49 Acquired absence of other specified parts of digestive tract; Z98.890 Other specified postprocedural states; Z98.51 Tubal ligation status; F17.200 Nicotine dependence, unspecified, uncomplicated

== ENCOUNTER 2023-04-02 18:43 | Emergency (ER) | payer OTHER ==
[~2023-04-02] VITALS: Ht 162.5 cm; Wt 83.0 kg
[2023-04-02 19:30] VITALS: BP 150/78
[2023-04-02 20:53] LABS: HEMATOCRIT 43.1 % (37.0-47.0); MEAN CELL VOLUME 89.2 fl (81.0-99.0); MEAN CORPUSCULAR HGB 29.8 pg (27.0-31.0); MEAN CORPUSCULAR HGB CONC 33.4 g/dl (33.0-37.0); MEAN PLATELET VOLUME 10.2 fl (9.6-12.3); PLATELET COUNT AUTOMATED 287 10*3/uL (130-400); RED BLOOD COUNT 4.83 10*6/uL (4.10-5.10); RED CELL DISTRI WIDTH 13.8 % (0-14.5); WHITE BLOOD COUNT 13.2 10*3/uL (4.8-10.8)
[2023-04-02 21:01] LABS: MANUAL DIFF REFLEX YES
[2023-04-02 21:06] LABS: ACT PARTIAL THROMBO TIME 31.6 SECONDS (20.0-32.1)
[2023-04-02 21:16] LABS: ALKALINE PHOSPHATASE 102 U/L (46-116); BUN 10 mg/dl (9-23); CHLORIDE 105 mmol/L (98-107); LIPASE 27 U/L (12-53); POTASSIUM 4.1 mmol/L (3.4-5.1); SGPT/ALT 9 U/L (10-49); TOTAL PROTEIN 6.9 gm/dL (6.0-8.0)
[2023-04-02 21:21] LABS: PLATELET SUFFICIENCY NORMAL (NORMAL); TOTAL CELLS COUNTED 100 #CELLS
[2023-04-02 21:22] LABS: BURR CELLS FEW
[2023-04-02 23:03] LABS: BILIRUBIN Negative (Negative); BLOOD Negative (Negative); CLARITY Clear (Clear); COLOR Yellow (Yellow); GLUCOSE 3+ (Negative); KETONE 1+ (Negative); LEUKO ESTERASE Negative (Negative); NITRITE Negative (Negative); PH 6.5 (4.5-8.0); SPECIFIC GRAVITY 1.025 (1.001-1.030)
[2023-04-02 23:11] LABS: EPITHELIAL CELLS 16-20
[2023-04-02 23:12] LABS: RBC 0-2 rbc/hpf (0-2); WBC 0-2 wbc/hpf (0-5)
[2023-04-02] MEDS ORDERED: PHENERGAN25 M3 PO (23:23)
== END 2023-04-03 01:03 | disposition home or self-care (01) ==
LOC: ED 18:43
PROVIDERS: Internal Medicine
DX: R10.84 Generalized abdominal pain (principal); R11.0 Nausea; T50.905A Adverse effect of unspecified drugs, medicaments and biological substances, initial encounter; G43.909 Migraine, unspecified, not intractable, without status migrainosus; K21.9 Gastro-esophageal reflux disease without esophagitis; J44.9 Chronic obstructive pulmonary disease, unspecified; F41.9 Anxiety disorder, unspecified; I10 Essential (primary) hypertension; M10.9 Gout, unspecified; Z88.1 Allergy status to other antibiotic agents; Z88.5 Allergy status to narcotic agent; Z91.041 Radiographic dye allergy status; Z88.2 Allergy status to sulfonamides; Z88.8 Allergy status to other drugs, medicaments and biological substances; Z90.49 Acquired absence of other specified parts of digestive tract; Z98.890 Other specified postprocedural states; Z98.51 Tubal ligation status; F17.200 Nicotine dependence, unspecified, uncomplicated; Y92.89 Other specified places as the place of occurrence of the external cause

== ENCOUNTER 2023-05-01 11:51 | Emergency (ER) | payer OTHER ==
[~2023-05-01] VITALS: Ht 162.5 cm; Wt 81.6 kg
[2023-05-01 12:15] VITALS: BP 169/86
[2023-05-01 15:08] LABS: BILIRUBIN Negative (Negative); BLOOD Negative (Negative); CLARITY Clear (Clear); COLOR Yellow (Yellow); GLUCOSE Negative (Negative); KETONE Negative (Negative); LEUKO ESTERASE Negative (Negative); NITRITE Negative (Negative); SPECIFIC GRAVITY <= 1.005 (1.001-1.030)
[2023-05-01 15:13] LABS: BACTERIA TRACE; RBC 0-2 rbc/hpf (0-2)
[2023-05-01 15:14] LABS: BASO # 0.1 10*3/uL (0.0-0.1); BASO % 0.5 % (0.0-1.0); EOS # 0.1 10*3/uL (0.0-0.4); EOS % 1.2 % (1.0-4.0); HEMATOCRIT 44.2 % (37.0-47.0); LYMPH # 3.3 10*3/uL (1.3-4.4); LYMPH % 31.1 % (27.0-41.0); MEAN CELL VOLUME 89.7 fl (81.0-99.0); MEAN CORPUSCULAR HGB 29.6 pg (27.0-31.0); MEAN PLATELET VOLUME 10.3 fl (9.6-12.3); MONO # 0.7 10*3/uL (0.1-1.0); MONO % 6.4 % (3.0-9.0); NEUT # 6.4 10*3/uL (2.3-7.9); NEUT % 60.6 % (47.0-73.0); PLATELET COUNT AUTOMATED 315 10*3/uL (130-400); RED BLOOD COUNT 4.93 10*6/uL (4.10-5.10); RED CELL DISTRI WIDTH 14.4 % (0-14.5); WHITE BLOOD COUNT 10.5 10*3/uL (4.8-10.8)
[2023-05-01 15:33] LABS: ALKALINE PHOSPHATASE 98 U/L (46-116); BUN 5 mg/dl (9-23); CHLORIDE 108 mmol/L (98-107); LIPASE 53 U/L (12-53); POTASSIUM 3.8 mmol/L (3.4-5.1); SGPT/ALT 8 U/L (10-49); TOTAL PROTEIN 6.8 gm/dL (6.0-8.0)
== END 2023-05-01 17:17 | disposition home or self-care (01) ==
LOC: ED 11:51
PROVIDERS: Emergency Medicine; Nurse Practitioner Family
DX: R10.32 Left lower quadrant pain (principal); R11.2 Nausea with vomiting, unspecified; M19.90 Unspecified osteoarthritis, unspecified site; J44.9 Chronic obstructive pulmonary disease, unspecified; E11.9 Type 2 diabetes mellitus without complications; M79.7 Fibromyalgia; K21.9 Gastro-esophageal reflux disease without esophagitis; I10 Essential (primary) hypertension; E87.8 Other disorders of electrolyte and fluid balance, not elsewhere classified; E11.65 Type 2 diabetes mellitus with hyperglycemia; E83.41 Hypermagnesemia; Z90.49 Acquired absence of other specified parts of digestive tract; Z88.1 Allergy status to other antibiotic agents; Z88.5 Allergy status to narcotic agent; Z91.041 Radiographic dye allergy status; Z88.2 Allergy status to sulfonamides; Z98.890 Other specified postprocedural states; Z98.51 Tubal ligation status; F17.200 Nicotine dependence, unspecified, uncomplicated; G43.909 Migraine, unspecified, not intractable, without status migrainosus; J45.909 Unspecified asthma, uncomplicated; F41.9 Anxiety disorder, unspecified; F17.290 Nicotine dependence, other tobacco product, uncomplicated

== ENCOUNTER 2023-05-23 20:30 | Emergency (ER) | payer OTHER ==
[~2023-05-23] VITALS: Ht 162.5 cm; Wt 83.5 kg
[2023-05-23 20:37] VITALS: BP 137/75
[2023-05-23] MEDS ORDERED: PRILOSEC20 M1 PO (20:38)
[2023-05-23 21:12] LABS: HEMATOCRIT 43.7 % (37.0-47.0); MEAN CELL VOLUME 90.1 fl (81.0-99.0); MEAN CORPUSCULAR HGB 30.3 pg (27.0-31.0); MEAN CORPUSCULAR HGB CONC 33.6 g/dl (33.0-37.0); MEAN PLATELET VOLUME 10.1 fl (9.6-12.3); PLATELET COUNT AUTOMATED 266 10*3/uL (130-400); RED BLOOD COUNT 4.85 10*6/uL (4.10-5.10); RED CELL DISTRI WIDTH 14.4 % (0-14.5); WHITE BLOOD COUNT 14.2 10*3/uL (4.8-10.8)
[2023-05-23 21:13] LABS: MANUAL DIFF REFLEX YES
[2023-05-23 21:37] LABS: PLATELET SUFFICIENCY NORMAL (NORMAL); TOTAL CELLS COUNTED 100 #CELLS
[2023-05-23 21:40] LABS: ALKALINE PHOSPHATASE 100 U/L (46-116); BUN 10 mg/dl (9-23); CHLORIDE 106 mmol/L (98-107); LIPASE 52 U/L (12-53); POTASSIUM 4.1 mmol/L (3.4-5.1); SGPT/ALT 12 U/L (5-49); TOTAL PROTEIN 6.3 gm/dL (6.0-8.0)
[2023-05-23] MEDS ORDERED: METRONIDAZOLE500 M1 PO (23:59)
== END 2023-05-24 00:10 | disposition home or self-care (01) ==
LOC: ED 20:30
PROVIDERS: Internal Medicine
DX: K52.9 Noninfective gastroenteritis and colitis, unspecified (principal); R10.32 Left lower quadrant pain; R73.9 Hyperglycemia, unspecified; D72.829 Elevated white blood cell count, unspecified; A41.9 Sepsis, unspecified organism; R11.0 Nausea; G43.909 Migraine, unspecified, not intractable, without status migrainosus; J44.9 Chronic obstructive pulmonary disease, unspecified; K21.9 Gastro-esophageal reflux disease without esophagitis; F41.9 Anxiety disorder, unspecified; I10 Essential (primary) hypertension; M10.9 Gout, unspecified; Z88.1 Allergy status to other antibiotic agents; Z88.5 Allergy status to narcotic agent; Z88.2 Allergy status to sulfonamides; Z91.041 Radiographic dye allergy status; Z88.8 Allergy status to other drugs, medicaments and biological substances; Z90.49 Acquired absence of other specified parts of digestive tract; Z98.890 Other specified postprocedural states; Z98.51 Tubal ligation status; F17.200 Nicotine dependence, unspecified, uncomplicated

== ENCOUNTER 2023-08-08 01:35 | Emergency (ER) | payer OTHER ==
[~2023-08-08] VITALS: Ht 162.5 cm; Wt 83.5 kg
[2023-08-08 02:33] VITALS: BP 146/88
[2023-08-08 02:35] LABS: BASO # 0.1 10*3/uL (0.0-0.1); BASO % 0.6 % (0.0-1.0); EOS # 0.3 10*3/uL (0.0-0.4); EOS % 2.3 % (1.0-4.0); HEMATOCRIT 44.4 % (37.0-47.0); LYMPH % 39.4 % (27.0-41.0); MEAN CELL VOLUME 90.6 fl (81.0-99.0); MEAN CORPUSCULAR HGB 28.6 pg (27.0-31.0); MEAN CORPUSCULAR HGB CONC 31.5 g/dl (33.0-37.0); MEAN PLATELET VOLUME 10.4 fl (9.6-12.3); MONO % 7.5 % (3.0-9.0); NEUT # 6.3 10*3/uL (2.3-7.9); NEUT % 49.9 % (47.0-73.0); PLATELET COUNT AUTOMATED 259 10*3/uL (130-400); RED CELL DISTRI WIDTH 13.7 % (0-14.5); WHITE BLOOD COUNT 12.7 10*3/uL (4.8-10.8)
[2023-08-08 02:52] LABS: ALKALINE PHOSPHATASE 85 U/L (46-116); BUN 13 mg/dl (9-23); CHLORIDE 106 mmol/L (98-107); LIPASE 50 U/L (12-53); POTASSIUM 3.7 mmol/L (3.4-5.1); SGPT/ALT < 7 U/L (5-49); TOTAL PROTEIN 6.4 gm/dL (6.0-8.0)
[2023-08-08 02:56] LABS: BILIRUBIN Negative (Negative); BLOOD Negative (Negative); CLARITY Clear (Clear); COLOR Yellow (Yellow); GLUCOSE 1+ (Negative); KETONE Negative (Negative); LEUKO ESTERASE Negative (Negative); NITRITE Negative (Negative); PH 6.5 (4.5-8.0); SPECIFIC GRAVITY 1.015 (1.001-1.030); UROBILINOGEN 0.2 E.U./dl (0.0-1.0)
[2023-08-08 03:16] LABS: EPITHELIAL CELLS 16-20
[2023-08-08] MEDS ORDERED: PROMETHAZINE HC25 M1 PO (04:16)
== END 2023-08-08 04:33 | disposition home or self-care (01) ==
LOC: ED 01:35
PROVIDERS: Family Medicine
DX: R10.9 Unspecified abdominal pain (principal); G43.909 Migraine, unspecified, not intractable, without status migrainosus; J44.9 Chronic obstructive pulmonary disease, unspecified; K21.9 Gastro-esophageal reflux disease without esophagitis; F41.9 Anxiety disorder, unspecified; I25.2 Old myocardial infarction; I10 Essential (primary) hypertension; M10.9 Gout, unspecified; Z88.1 Allergy status to other antibiotic agents; Z88.5 Allergy status to narcotic agent; Z91.041 Radiographic dye allergy status; Z88.2 Allergy status to sulfonamides; Z88.8 Allergy status to other drugs, medicaments and biological substances; Z90.49 Acquired absence of other specified parts of digestive tract; Z98.890 Other specified postprocedural states; Z98.51 Tubal ligation status; F17.200 Nicotine dependence, unspecified, uncomplicated

== ENCOUNTER 2023-09-09 00:49 | Emergency (ER) | payer OTHER ==
[~2023-09-09] VITALS: Ht 162.5 cm; Wt 83.5 kg
[~2023-09-09 00:49] MED LIST changes: +PROMETHAZINE HC25 M1 PO
[2023-09-09 00:59] VITALS: BP 155/56
[2023-09-09 01:34] LABS: HEMATOCRIT 45.7 % (37.0-47.0); MANUAL DIFF REFLEX YES; MEAN CELL VOLUME 90.1 fl (81.0-99.0); MEAN CORPUSCULAR HGB 28.6 pg (27.0-31.0); MEAN CORPUSCULAR HGB CONC 31.7 g/dl (33.0-37.0); MEAN PLATELET VOLUME 10.3 fl (9.6-12.3); PLATELET COUNT AUTOMATED 228 10*3/uL (130-400); RED BLOOD COUNT 5.07 10*6/uL (4.10-5.10); RED CELL DISTRI WIDTH 14.2 % (0-14.5); WHITE BLOOD COUNT 14.1 10*3/uL (4.8-10.8)
[2023-09-09 01:52] LABS: ALKALINE PHOSPHATASE 80 U/L (46-116); BUN 12 mg/dl (9-23); CHLORIDE 105 mmol/L (98-107); TOTAL PROTEIN 6.7 gm/dL (6.0-8.0)
[2023-09-09 01:53] LABS: SGPT/ALT < 7 U/L (5-49)
[2023-09-09 02:01] LABS: PLATELET SUFFICIENCY NORMAL (NORMAL); TOTAL CELLS COUNTED 100 #CELLS
[2023-09-09] MEDS ORDERED: MEPERIDINE HYDROCHLORIDE 25 MG/1 ML VIAL IM ONE (02:15)
[2023-09-09] MEDS ORDERED: Promethazine Hydrochloride 25 MG/ML VIAL IM ONE (02:15)
== END 2023-09-09 02:37 | disposition home or self-care (01) ==
LOC: ED 00:49
PROVIDERS: Internal Medicine
DX: R07.89 Other chest pain (principal); D72.829 Elevated white blood cell count, unspecified; R73.9 Hyperglycemia, unspecified; I12.9 Hypertensive chronic kidney disease with stage 1 through stage 4 chronic kidney disease, or unspecified chronic kidney disease; N18.31 Chronic kidney disease, stage 3a; G43.909 Migraine, unspecified, not intractable, without status migrainosus; K21.9 Gastro-esophageal reflux disease without esophagitis; J44.9 Chronic obstructive pulmonary disease, unspecified; F41.9 Anxiety disorder, unspecified; M10.9 Gout, unspecified; Z88.1 Allergy status to other antibiotic agents; Z88.5 Allergy status to narcotic agent; Z91.041 Radiographic dye allergy status; Z88.2 Allergy status to sulfonamides; Z88.8 Allergy status to other drugs, medicaments and biological substances; Z90.49 Acquired absence of other specified parts of digestive tract; Z98.890 Other specified postprocedural states; Z98.51 Tubal ligation status; F17.200 Nicotine dependence, unspecified, uncomplicated

== ENCOUNTER 2023-09-17 18:51 | Emergency (ER) | payer OTHER ==
[~2023-09-17] VITALS: Ht 162.5 cm; Wt 83.5 kg
[2023-09-17 19:02] VITALS: BP 157/84
[2023-09-17 19:31] LABS: HEMATOCRIT 45.2 % (37.0-47.0); MEAN CORPUSCULAR HGB 28.7 pg (27.0-31.0); MEAN CORPUSCULAR HGB CONC 32.3 g/dl (33.0-37.0); MEAN PLATELET VOLUME 10.3 fl (9.6-12.3); PLATELET COUNT AUTOMATED 272 10*3/uL (130-400); RED BLOOD COUNT 5.08 10*6/uL (4.10-5.10); WHITE BLOOD COUNT 12.6 10*3/uL (4.8-10.8)
[2023-09-17 19:37] LABS: MANUAL DIFF REFLEX YES
[2023-09-17] MEDS ORDERED: Promethazine Hydrochloride 25 MG/ML VIAL IV ONE (19:40)
[2023-09-17] MEDS ORDERED: ACETAMINOPHEN 325 MG TAB PO ONE (19:40)
[2023-09-17 19:44] LABS: BILIRUBIN Negative (Negative); BLOOD Negative (Negative); CLARITY Clear (Clear); COLOR Yellow (Yellow); GLUCOSE 2+ (Negative); KETONE Negative (Negative); LEUKO ESTERASE Negative (Negative); NITRITE Negative (Negative)
[2023-09-17 19:54] LABS: ALKALINE PHOSPHATASE 83 U/L (46-116); BUN 13 mg/dl (9-23); CHLORIDE 105 mmol/L (98-107); LIPASE 32 U/L (12-53); POTASSIUM 3.7 mmol/L (3.4-5.1); SGPT/ALT 7 U/L (5-49); TOTAL PROTEIN 6.9 gm/dL (6.0-8.0)
[2023-09-17 19:57] LABS: BACTERIA 1+
[2023-09-17] MEDS ORDERED: MACROBID100 M1 PO (20:08)
[2023-09-17 20:21] LABS: BASOPHILS 3 % (0-1); TOTAL CELLS COUNTED 100 #CELLS
[2023-09-17 20:22] LABS: BURR CELLS FEW; PLATELET SUFFICIENCY NORMAL (NORMAL)
== END 2023-09-17 20:25 | disposition home or self-care (01) ==
LOC: ED 18:51
PROVIDERS: Internal Medicine
DX: N39.0 Urinary tract infection, site not specified (principal); R11.2 Nausea with vomiting, unspecified; G43.909 Migraine, unspecified, not intractable, without status migrainosus; K21.9 Gastro-esophageal reflux disease without esophagitis; J44.9 Chronic obstructive pulmonary disease, unspecified; F41.9 Anxiety disorder, unspecified; I10 Essential (primary) hypertension; M10.9 Gout, unspecified; Z88.1 Allergy status to other antibiotic agents; Z88.5 Allergy status to narcotic agent; Z91.041 Radiographic dye allergy status; Z88.2 Allergy status to sulfonamides; Z88.8 Allergy status to other drugs, medicaments and biological substances; Z98.890 Other specified postprocedural states; Z90.49 Acquired absence of other specified parts of digestive tract; Z98.51 Tubal ligation status; F17.200 Nicotine dependence, unspecified, uncomplicated

== ENCOUNTER → 2023-09-24 | Outpatient (CLI) | payer OTHER | END | disposition home or self-care (01) | LOC: CARD 01:54 | PROVIDERS: ATTEND Nurse Practitioner Primary Care | DX: I49.3 Ventricular premature depolarization (principal); I49.1 Atrial premature depolarization ==

== ENCOUNTER → 2023-12-04 | Day surgery (SDC) | payer OTHER ==
[~2023-12-04] VITALS: Ht 162.5 cm; Wt 83.9 kg
[~2023-12-04] MED LIST changes: +ACETAMINOPHEN 100 ML IV ONE; +BUPIVACAINE 0.5% 30 ML IV ONE; +Clindamycin Phosphate 50 ML IV ONE; +HYDROmorphONE Hydrochloride 0.5 MG/0.5 ML SYRINGE IV ONE; +HYDROmorphONE Hydrochloride 0.5 MG/0.5 ML SYRINGE ONE; +Ketamine Hydrochloride 500 MG/10 ML VIAL IV ONE; +Midazolam Hydrochloride 2 MG/2 ML VIAL IV ONE; +Midazolam Hydrochloride 2 MG/2 ML VIAL IV STA; +Ondansetron Hydrochloride 4 MG/2 ML VIAL ONE; +PROPOFOL 200 MG/20 ML VIAL IV ONE; +Promethazine Hydrochloride 25 MG/ML VIAL ONE; +SODIUM CHLORIDE 0.9% 1,000 ML IV ONE; +SODIUM CHLORIDE 0.9% 1,000 ML IV SCH; +VIBRA-TAB100 MG PO; +XARELTO10 MG PO
[2023-12-04 10:37] VITALS: BP 142/78
[2023-12-04 13:05] VITALS: BP 144/61
[2023-12-04 13:20] VITALS: BP 122/73; BP 128/58
[2023-12-04 13:50] VITALS: BP 134/51
[2023-12-04 13:58] VITALS: BP 151/68
[2023-12-04 14:16] VITALS: BP 157/80
== END | disposition home or self-care (01) ==
LOC: SDC 12-02 01:38
PROVIDERS: ATTEND Podiatrist
DX: R22.41 Localized swelling, mass and lump, right lower limb (principal); E11.9 Type 2 diabetes mellitus without complications; F41.9 Anxiety disorder, unspecified; F32.A Depression, unspecified; K21.9 Gastro-esophageal reflux disease without esophagitis; F17.210 Nicotine dependence, cigarettes, uncomplicated; Z98.51 Tubal ligation status; Z98.890 Other specified postprocedural states; Z79.4 Long term (current) use of insulin; Z88.5 Allergy status to narcotic agent; Z88.6 Allergy status to analgesic agent; Z88.1 Allergy status to other antibiotic agents; Z88.8 Allergy status to other drugs, medicaments and biological substances

== ENCOUNTER 2024-01-19 21:07 | Emergency (ER) | payer OTHER ==
[~2024-01-19] VITALS: Ht 162.5 cm; Wt 82.6 kg
[~2024-01-19 21:07] MED LIST changes: -ACETAMINOPHEN 100 ML IV ONE; -BUPIVACAINE 0.5% 30 ML IV ONE; -Clindamycin Phosphate 50 ML IV ONE; -HYDROmorphONE Hydrochloride 0.5 MG/0.5 ML SYRINGE IV ONE; -HYDROmorphONE Hydrochloride 0.5 MG/0.5 ML SYRINGE ONE; -Ketamine Hydrochloride 500 MG/10 ML VIAL IV ONE; -Midazolam Hydrochloride 2 MG/2 ML VIAL IV ONE; -Midazolam Hydrochloride 2 MG/2 ML VIAL IV STA; -Ondansetron Hydrochloride 4 MG/2 ML VIAL ONE; -PROPOFOL 200 MG/20 ML VIAL IV ONE; -Promethazine Hydrochloride 25 MG/ML VIAL ONE; -SODIUM CHLORIDE 0.9% 1,000 ML IV ONE; -SODIUM CHLORIDE 0.9% 1,000 ML IV SCH
[2024-01-19 21:14] VITALS: BP 154/86
[2024-01-19] MEDS ORDERED: PROTONIX40 MG PO (21:55)
[2024-01-19] MEDS ORDERED: EFFEXOR XR37.5 M1 PO (21:55)
[2024-01-19] MEDS ORDERED: NATURE'S BLEND F1 MG PO (21:56)
[2024-01-19] MEDS ORDERED: CYCLOBENZAPRINE5 M3 PO (21:58)
[2024-01-19 22:01] LABS: HEMATOCRIT 48.2 % (37.0-47.0); MEAN CELL VOLUME 90.3 fl (81.0-99.0); MEAN CORPUSCULAR HGB 29.2 pg (27.0-31.0); MEAN CORPUSCULAR HGB CONC 32.4 g/dl (33.0-37.0); MEAN PLATELET VOLUME 10.1 fl (9.6-12.3); PLATELET COUNT AUTOMATED 285 10*3/uL (130-400); RED BLOOD COUNT 5.34 10*6/uL (4.10-5.10); RED CELL DISTRI WIDTH 14.4 % (0-14.5); WHITE BLOOD COUNT 13.8 10*3/uL (4.8-10.8)
[2024-01-19 22:03] LABS: MANUAL DIFF REFLEX YES
[2024-01-19] MEDS ORDERED: Promethazine Hydrochloride 25 MG/ML VIAL IV ONE (22:10)
[2024-01-19] MEDS ORDERED: ACETAMINOPHEN 325 MG TAB PO ONE (22:10)
[2024-01-19 22:23] LABS: ALKALINE PHOSPHATASE 88 U/L (46-116); BUN 7 mg/dl (9-23); CHLORIDE 106 mmol/L (98-107); LIPASE 38 U/L (12-53); POTASSIUM 3.8 mmol/L (3.4-5.1); SGPT/ALT 8 U/L (5-49); TOTAL PROTEIN 6.9 gm/dL (6.0-8.0)
[2024-01-19 22:29] LABS: ATYPICAL LYMPHS 1 % (0-0); BASOPHILS 1 % (0-1); BURR CELLS FEW; PLATELET SUFFICIENCY NORMAL (NORMAL); TOTAL CELLS COUNTED 100 #CELLS
[2024-01-19 22:46] LABS: BILIRUBIN Negative (Negative); BLOOD Negative (Negative); CLARITY Clear (Clear); COLOR Yellow (Yellow); GLUCOSE Trace (Negative); KETONE Negative (Negative); LEUKO ESTERASE Negative (Negative); NITRITE Negative (Negative); UROBILINOGEN 0.2 E.U./dl (0.0-1.0)
[2024-01-19 22:53] LABS: RBC 0-2 rbc/hpf (0-2)
[2024-01-19 22:54] LABS: BACTERIA TRACE; MUCOUS 1+
== END 2024-01-20 00:06 | disposition home or self-care (01) ==
LOC: ED 21:07
PROVIDERS: Internal Medicine
DX: R10.9 Unspecified abdominal pain (principal); R11.2 Nausea with vomiting, unspecified; K21.9 Gastro-esophageal reflux disease without esophagitis; F41.9 Anxiety disorder, unspecified; F17.200 Nicotine dependence, unspecified, uncomplicated; Z88.1 Allergy status to other antibiotic agents; Z88.5 Allergy status to narcotic agent; Z91.041 Radiographic dye allergy status; Z88.2 Allergy status to sulfonamides; Z90.49 Acquired absence of other specified parts of digestive tract; Z98.890 Other specified postprocedural states; Z98.51 Tubal ligation status

== ENCOUNTER 2024-02-27 00:42 | Emergency (ER) | payer OTHER ==
[~2024-02-27] VITALS: Ht 162.5 cm; Wt 81.6 kg
[~2024-02-27 00:42] MED LIST changes: +CYCLOBENZAPRINE5 M3 PO; +EFFEXOR XR37.5 M1 PO; +NATURE'S BLEND F1 MG PO
[2024-02-27 00:56] VITALS: BP 152/71
[2024-02-27 01:20] LABS: MEAN CELL VOLUME 88.8 fl (81.0-99.0); MEAN CORPUSCULAR HGB 28.9 pg (27.0-31.0); MEAN CORPUSCULAR HGB CONC 32.6 g/dl (33.0-37.0); MEAN PLATELET VOLUME 10.3 fl (9.6-12.3); PLATELET COUNT AUTOMATED 269 10*3/uL (130-400); RED BLOOD COUNT 4.84 10*6/uL (4.10-5.10); RED CELL DISTRI WIDTH 14.6 % (0-14.5); WHITE BLOOD COUNT 12.6 10*3/uL (4.8-10.8)
[2024-02-27] MEDS ORDERED: Promethazine Hydrochloride 25 MG/ML VIAL IM ONE (01:20)
[2024-02-27 01:23] LABS: MANUAL DIFF REFLEX YES
[2024-02-27 01:41] LABS: ALKALINE PHOSPHATASE 94 U/L (46-116); BUN 8 mg/dl (9-23); CHLORIDE 106 mmol/L (98-107); POTASSIUM 3.5 mmol/L (3.4-5.1); SGPT/ALT 8 U/L (5-49); TOTAL PROTEIN 6.5 gm/dL (6.0-8.0)
[2024-02-27 01:51] LABS: PLATELET SUFFICIENCY NORMAL (NORMAL); TOTAL CELLS COUNTED 100 #CELLS
[2024-02-27] MEDS ORDERED: HYDROmorphONE Hydrochloride 1 MG/ML SYR IV ONE (02:15)
[2024-02-27] MEDS ORDERED: HEPARIN SODIUM 10 UNIT/ML SYR IV ONE (03:45)
[2024-02-27] MEDS ORDERED: HEPARIN SODIUM 300 UNITS/3 ML SYR IV ONE (03:50)
== END 2024-02-27 04:09 | disposition home or self-care (01) ==
LOC: ED 00:42
PROVIDERS: Internal Medicine
DX: R07.89 Other chest pain (principal); R73.9 Hyperglycemia, unspecified; N18.31 Chronic kidney disease, stage 3a; R11.0 Nausea; D72.829 Elevated white blood cell count, unspecified; K21.9 Gastro-esophageal reflux disease without esophagitis; F41.9 Anxiety disorder, unspecified; F17.200 Nicotine dependence, unspecified, uncomplicated; Z88.1 Allergy status to other antibiotic agents; Z88.5 Allergy status to narcotic agent; Z91.041 Radiographic dye allergy status; Z88.8 Allergy status to other drugs, medicaments and biological substances; Z88.2 Allergy status to sulfonamides; Z90.49 Acquired absence of other specified parts of digestive tract; Z98.51 Tubal ligation status; Z98.890 Other specified postprocedural states

== ENCOUNTER 2024-04-13 08:00 | Emergency (ER) | payer OTHER ==
[~2024-04-13] VITALS: Ht 162.5 cm; Wt 81.6 kg
[2024-04-13 08:15] VITALS: BP 188/86
[2024-04-13] MEDS ORDERED: B12 ACTIVE1000 MCG PO (08:16)
[2024-04-13] MEDS ORDERED: diphenhydrAMINE hydrochloride 50 MG/ML VIAL IV ONE (08:35)
[2024-04-13] MEDS ORDERED: Dexamethasone Sodium Phospha 20 MG/5 ML VIAL IV ONE (08:35)
[2024-04-13] MEDS ORDERED: SODIUM CHLORIDE 0.9% 1,000 ML IV ONE (08:35)
[2024-04-13] MEDS ORDERED: Metoclopramide Hydrochloride 10 MG/2 ML AMP IV ONE (08:35)
[2024-04-13] MEDS ORDERED: ACETAMINOPHEN 325 MG TAB PO ONE (08:35)
[2024-04-13] MEDS ORDERED: Promethazine Hydrochloride 25 MG/ML VIAL IV ONE (08:40)
[2024-04-13] MEDS ORDERED: SUMATRIPTAN SUCCINATE 50 MG TAB PO ONE (09:25)
[2024-04-13] MEDS ORDERED: HYDROmorphONE Hydrochloride 0.5 MG/0.5 ML SYRINGE IV ONE (09:30)
[2024-04-13] MEDS ORDERED: REGLAN10 M1 PO (10:31)
[2024-04-13] MEDS ORDERED: HEPARIN SODIUM 500 UNIT/5 ML SYR IV ONE (10:55)
== END 2024-04-13 10:43 | disposition home or self-care (01) ==
LOC: ED 08:00
DX: R51.9 Headache, unspecified (principal); E11.9 Type 2 diabetes mellitus without complications; F41.9 Anxiety disorder, unspecified; K21.9 Gastro-esophageal reflux disease without esophagitis; I25.2 Old myocardial infarction; F17.200 Nicotine dependence, unspecified, uncomplicated; Z88.1 Allergy status to other antibiotic agents; Z88.5 Allergy status to narcotic agent; Z91.041 Radiographic dye allergy status; Z88.2 Allergy status to sulfonamides; Z88.8 Allergy status to other drugs, medicaments and biological substances; Z90.49 Acquired absence of other specified parts of digestive tract; Z98.890 Other specified postprocedural states; Z98.51 Tubal ligation status

== ENCOUNTER 2024-07-26 17:54 | Emergency (ER) | payer OTHER ==
[~2024-07-26] VITALS: Ht 162.5 cm; Wt 81.6 kg
[~2024-07-26 17:54] MED LIST changes: +B12 ACTIVE1000 MCG PO; +REGLAN10 M1 PO
[2024-07-26] MEDS ORDERED: Albuterol Sulf/Ipratropium 3 ML VIAL NEB ONE (18:15)
[2024-07-26] MEDS ORDERED: methylPREDNISolone sod succ 125 MG VIAL IV ONE (18:15)
[2024-07-26 18:35] LABS: BASO % 0.5 % (0.0-1.0); EOS # 0.1 10*3/uL (0.0-0.4); EOS % 1.3 % (1.0-4.0); HEMATOCRIT 44.9 % (37.0-47.0); MEAN CELL VOLUME 89.1 fl (81.0-99.0); MEAN CORPUSCULAR HGB CONC 32.5 g/dl (33.0-37.0); MEAN PLATELET VOLUME 10.5 fl (9.6-12.3); MONO # 0.8 10*3/uL (0.1-1.0); NEUT # 3.7 10*3/uL (2.3-7.9); NEUT % 42.5 % (47.0-73.0); PLATELET COUNT AUTOMATED 196 10*3/uL (130-400); RED BLOOD COUNT 5.04 10*6/uL (4.10-5.10); RED CELL DISTRI WIDTH 14.6 % (0-14.5); WHITE BLOOD COUNT 8.6 10*3/uL (4.8-10.8)
[2024-07-26 18:50] LABS: BUN 11 mg/dl (9-23); CHLORIDE 103 mmol/L (98-107); POTASSIUM 3.5 mmol/L (3.4-5.1)
[2024-07-26] MEDS ORDERED: PREDNISONE20 M1 PO (19:59)
[2024-07-26] MEDS ORDERED: CEFUROXIME AXE500 MG PO (19:59)
[2024-07-26] MEDS ORDERED: Cefuroxime Axetil 250 MG TAB PO ONE (20:00)
== END 2024-07-26 20:04 | disposition home or self-care (01) ==
LOC: ED 17:54
PROVIDERS: Nurse Practitioner Family
DX: J44.1 Chronic obstructive pulmonary disease with (acute) exacerbation (principal); E11.65 Type 2 diabetes mellitus with hyperglycemia; M19.90 Unspecified osteoarthritis, unspecified site; M79.7 Fibromyalgia; K21.9 Gastro-esophageal reflux disease without esophagitis; E78.00 Pure hypercholesterolemia, unspecified; E83.41 Hypermagnesemia; M10.9 Gout, unspecified; E11.22 Type 2 diabetes mellitus with diabetic chronic kidney disease; I12.9 Hypertensive chronic kidney disease with stage 1 through stage 4 chronic kidney disease, or unspecified chronic kidney disease; N18.31 Chronic kidney disease, stage 3a; F17.200 Nicotine dependence, unspecified, uncomplicated; Z88.1 Allergy status to other antibiotic agents; Z88.5 Allergy status to narcotic agent; Z88.8 Allergy status to other drugs, medicaments and biological substances; Z88.2 Allergy status to sulfonamides; Z90.49 Acquired absence of other specified parts of digestive tract; Z98.890 Other specified postprocedural states

== ENCOUNTER 2024-09-08 20:33 | Emergency (ER) | payer OTHER ==
[~2024-09-08] VITALS: Ht 162.5 cm; Wt 81.6 kg
[~2024-09-08 20:33] MED LIST changes: +PREDNISONE20 M1 PO
[2024-09-08 20:52] VITALS: BP 142/100
[2024-09-08] MEDS ORDERED: NEURONTIN300 MG PO (20:59)
[2024-09-08] MEDS ORDERED: Promethazine Hydrochloride 25 MG/ML VIAL IM ONE (21:30)
[2024-09-08] MEDS ORDERED: HYDROmorphONE Hydrochloride 0.5 MG/0.5 ML SYRINGE IV ONE (21:30)
[2024-09-08] MEDS ORDERED: SODIUM CHLORIDE 0.9% 1,000 ML IV ONE (21:30)
[2024-09-08 22:24] LABS: BASO % 0.5 % (0.0-1.0); EOS % 0.2 % (1.0-4.0); HEMATOCRIT 43.9 % (37.0-47.0); MEAN CELL VOLUME 88.2 fl (81.0-99.0); MEAN CORPUSCULAR HGB 29.3 pg (27.0-31.0); MEAN CORPUSCULAR HGB CONC 33.3 g/dl (33.0-37.0); MEAN PLATELET VOLUME 10.4 fl (9.6-12.3); MONO # 1.2 10*3/uL (0.1-1.0); NEUT % 59.1 % (47.0-73.0); PLATELET COUNT AUTOMATED 223 10*3/uL (130-400); RED BLOOD COUNT 4.98 10*6/uL (4.10-5.10); RED CELL DISTRI WIDTH 14.6 % (0-14.5); WHITE BLOOD COUNT 8.5 10*3/uL (4.8-10.8)
[2024-09-08 22:45] LABS: ALKALINE PHOSPHATASE 80 U/L (46-116); BUN 11 mg/dl (9-23); CHLORIDE 104 mmol/L (98-107); LIPASE 32 U/L (12-53); POTASSIUM 3.5 mmol/L (3.4-5.1); SGPT/ALT 11 U/L (5-49); TOTAL PROTEIN 6.8 gm/dL (6.0-8.0)
[2024-09-08 22:56] LABS: BILIRUBIN Negative (Negative); BLOOD Negative (Negative); CLARITY Clear (Clear); COLOR Yellow (Yellow); GLUCOSE Negative (Negative); KETONE Negative (Negative); LEUKO ESTERASE Negative (Negative); NITRITE Negative (Negative); PH 6.5 (4.5-8.0); SPECIFIC GRAVITY <= 1.005 (1.001-1.030); UROBILINOGEN 0.2 E.U./dl (0.0-1.0)
[2024-09-08 23:03] LABS: MUCOUS TRACE; WBC 0-2 wbc/hpf (0-5)
[2024-09-08] MEDS ORDERED: HEPARIN SODIUM 500 UNIT/5 ML SYR IV ONE (23:25)
== END 2024-09-08 23:22 | disposition home or self-care (01) ==
LOC: ED 20:33
PROVIDERS: Nurse Practitioner Family
DX: R10.32 Left lower quadrant pain (principal); G43.109 Migraine with aura, not intractable, without status migrainosus; R19.7 Diarrhea, unspecified; J44.9 Chronic obstructive pulmonary disease, unspecified; M79.7 Fibromyalgia; E11.22 Type 2 diabetes mellitus with diabetic chronic kidney disease; I12.9 Hypertensive chronic kidney disease with stage 1 through stage 4 chronic kidney disease, or unspecified chronic kidney disease; N18.31 Chronic kidney disease, stage 3a; M19.90 Unspecified osteoarthritis, unspecified site; K21.9 Gastro-esophageal reflux disease without esophagitis; F41.9 Anxiety disorder, unspecified; F17.200 Nicotine dependence, unspecified, uncomplicated; Z88.1 Allergy status to other antibiotic agents; Z88.5 Allergy status to narcotic agent; Z91.041 Radiographic dye allergy status; Z88.6 Allergy status to analgesic agent; Z88.2 Allergy status to sulfonamides; Z79.899 Other long term (current) drug therapy; Z90.49 Acquired absence of other specified parts of digestive tract; Z98.890 Other specified postprocedural states

== ENCOUNTER 2024-10-29 13:12 | Emergency (ER) | payer OTHER ==
[~2024-10-29] VITALS: Ht 162.5 cm; Wt 81.6 kg
[~2024-10-29 13:12] MED LIST changes: +NEURONTIN300 MG PO
[2024-10-29 13:18] VITALS: BP 152/71
[2024-10-29] MEDS ORDERED: traMADol Hydrochloride 50 MG TAB PO ONE (14:15)
== END 2024-10-29 14:42 | disposition left against medical advice (07) ==
LOC: ED 13:12
DX: J20.9 Acute bronchitis, unspecified (principal); F32.A Depression, unspecified; K21.9 Gastro-esophageal reflux disease without esophagitis; F17.200 Nicotine dependence, unspecified, uncomplicated; Z88.1 Allergy status to other antibiotic agents; Z88.5 Allergy status to narcotic agent; Z91.041 Radiographic dye allergy status; Z88.8 Allergy status to other drugs, medicaments and biological substances; Z88.6 Allergy status to analgesic agent; Z88.2 Allergy status to sulfonamides; Z79.899 Other long term (current) drug therapy; Z90.49 Acquired absence of other specified parts of digestive tract; Z98.890 Other specified postprocedural states

== ENCOUNTER 2024-11-11 13:58 | Emergency (ER) | payer OTHER ==
[~2024-11-11] VITALS: Ht 162.5 cm; Wt 81.6 kg
[2024-11-11 14:09] VITALS: BP 140/90
[2024-11-11] MEDS ORDERED: Promethazine Hydrochloride 25 MG/ML VIAL IM ONE (14:20)
[2024-11-11] MEDS ORDERED: SODIUM CHLORIDE 0.9% 1,000 ML IV ONE (14:20)
[2024-11-11] MEDS ORDERED: HYDROmorphone Hydrochloride 1 MG/ML SYR IV ONE (14:20)
[2024-11-11] MEDS ORDERED: Promethazine Hydrochloride 25 MG/ML VIAL IV ONE (14:40)
[2024-11-11 14:43] LABS: HEMATOCRIT 47.5 % (37.0-47.0); MEAN CELL VOLUME 90.3 fl (81.0-99.0); MEAN CORPUSCULAR HGB 29.3 pg (27.0-31.0); MEAN CORPUSCULAR HGB CONC 32.4 g/dl (33.0-37.0); MEAN PLATELET VOLUME 10.6 fl (9.6-12.3); PLATELET COUNT AUTOMATED 225 10*3/uL (130-400); RED BLOOD COUNT 5.26 10*6/uL (4.10-5.10); RED CELL DISTRI WIDTH 14.8 % (0-14.5); WHITE BLOOD COUNT 13.2 10*3/uL (4.8-10.8)
[2024-11-11 14:45] LABS: MANUAL DIFF REFLEX YES
[2024-11-11 15:06] LABS: ALKALINE PHOSPHATASE 82 U/L (46-116); BUN 12 mg/dl (9-23); CHLORIDE 103 mmol/L (98-107); LIPASE 31 U/L (12-53); POTASSIUM 3.7 mmol/L (3.4-5.1); SGPT/ALT 11 U/L (5-49)
[2024-11-11 15:20] LABS: PLATELET SUFFICIENCY NORMAL (NORMAL); TOTAL CELLS COUNTED 100 #CELLS
[2024-11-11 15:21] LABS: BURR CELLS FEW
[2024-11-11] MEDS ORDERED: Phenergan25 MG PO (16:24)
[2024-11-11] MEDS ORDERED: HEPARIN SODIUM 500 UNIT/5 ML SYR IV ONE (16:25)
== END 2024-11-11 16:26 | disposition home or self-care (01) ==
LOC: ED 13:58
PROVIDERS: Nurse Practitioner Family
DX: R10.32 Left lower quadrant pain (principal); R11.2 Nausea with vomiting, unspecified; K21.9 Gastro-esophageal reflux disease without esophagitis; J44.9 Chronic obstructive pulmonary disease, unspecified; E11.9 Type 2 diabetes mellitus without complications; I10 Essential (primary) hypertension; Z79.899 Other long term (current) drug therapy; Z88.5 Allergy status to narcotic agent; Z88.2 Allergy status to sulfonamides; Z88.8 Allergy status to other drugs, medicaments and biological substances; Z88.6 Allergy status to analgesic agent; Z88.1 Allergy status to other antibiotic agents; Z91.041 Radiographic dye allergy status; Z90.49 Acquired absence of other specified parts of digestive tract; Z90.89 Acquired absence of other organs; Z98.51 Tubal ligation status; Z98.890 Other specified postprocedural states

== ENCOUNTER 2024-11-25 23:31 | Emergency (ER) | payer OTHER ==
[~2024-11-25] VITALS: Ht 162.5 cm; Wt 81.6 kg
[2024-11-25 23:42] VITALS: BP 150/75
[2024-11-25] MEDS ORDERED: Promethazine Hydrochloride 25 MG/ML VIAL IM ONE (23:50)
[2024-11-26 00:13] LABS: HEMATOCRIT 44.5 % (37.0-47.0); MEAN CELL VOLUME 90.3 fl (81.0-99.0); MEAN CORPUSCULAR HGB CONC 32.1 g/dl (33.0-37.0); MEAN PLATELET VOLUME 10.3 fl (9.6-12.3); PLATELET COUNT AUTOMATED 275 10*3/uL (130-400); RED BLOOD COUNT 4.93 10*6/uL (4.10-5.10); RED CELL DISTRI WIDTH 14.7 % (0-14.5); WHITE BLOOD COUNT 12.8 10*3/uL (4.8-10.8)
[2024-11-26 00:16] LABS: MANUAL DIFF REFLEX YES
[2024-11-26 00:35] LABS: ALKALINE PHOSPHATASE 86 U/L (46-116); BUN 13 mg/dl (9-23); CHLORIDE 105 mmol/L (98-107); LIPASE 40 U/L (12-53); POTASSIUM 3.9 mmol/L (3.4-5.1); SGPT/ALT 10 U/L (5-49); TOTAL PROTEIN 6.8 gm/dL (6.0-8.0)
[2024-11-26 00:42] LABS: ATYPICAL LYMPHS 4 % (0-0); PLATELET SUFFICIENCY NORMAL (NORMAL); TOTAL CELLS COUNTED 100 #CELLS
[2024-11-26] MEDS ORDERED: HYDROmorphone Hydrochloride 1 MG/ML SYR IV ONE (02:30)
[2024-11-26] MEDS ORDERED: MIRALAX POWDER17 G1 PO (02:40)
== END 2024-11-26 02:59 | disposition home or self-care (01) ==
LOC: ED 23:31
PROVIDERS: Internal Medicine
DX: K59.00 Constipation, unspecified (principal); R14.1 Gas pain; E11.65 Type 2 diabetes mellitus with hyperglycemia; E11.22 Type 2 diabetes mellitus with diabetic chronic kidney disease; N18.31 Chronic kidney disease, stage 3a; D72.829 Elevated white blood cell count, unspecified; F17.200 Nicotine dependence, unspecified, uncomplicated; Z88.1 Allergy status to other antibiotic agents; Z88.5 Allergy status to narcotic agent; Z91.041 Radiographic dye allergy status; Z88.6 Allergy status to analgesic agent; Z88.2 Allergy status to sulfonamides; Z88.8 Allergy status to other drugs, medicaments and biological substances; Z79.899 Other long term (current) drug therapy; Z90.49 Acquired absence of other specified parts of digestive tract; Z98.890 Other specified postprocedural states

== ENCOUNTER 2024-12-15 03:17 | Emergency (ER) | payer OTHER ==
[~2024-12-15] VITALS: Ht 165.1 cm; Wt 83.5 kg
[2024-12-15 03:42] VITALS: BP 144/74
[2024-12-15] MEDS ORDERED: diphenhydrAMINE hydrochloride 50 MG/ML VIAL IV ONE (03:45)
[2024-12-15] MEDS ORDERED: SODIUM CHLORIDE 0.9% 1,000 ML IV ONE (03:45)
[2024-12-15] MEDS ORDERED: Ondansetron Hydrochloride 4 MG/2 ML VIAL IV ONE (03:45)
[2024-12-15] MEDS ORDERED: methylPREDNISolone sod succ 125 MG VIAL IV ONE (03:45)
[2024-12-15] MEDS ORDERED: Promethazine Hydrochloride 25 MG/ML VIAL IM ONE (04:05)
[2024-12-15] MEDS ORDERED: HYDROmorphone Hydrochloride 1 MG/ML SYR IV ONE (05:55)
== END 2024-12-15 06:28 | disposition home or self-care (01) ==
LOC: ED 03:17
DX: G43.909 Migraine, unspecified, not intractable, without status migrainosus (principal); K21.9 Gastro-esophageal reflux disease without esophagitis; Z79.899 Other long term (current) drug therapy; Z88.2 Allergy status to sulfonamides; Z88.5 Allergy status to narcotic agent; Z88.6 Allergy status to analgesic agent; Z88.8 Allergy status to other drugs, medicaments and biological substances; Z91.041 Radiographic dye allergy status; Z90.49 Acquired absence of other specified parts of digestive tract; Z98.51 Tubal ligation status; Z98.890 Other specified postprocedural states

== ENCOUNTER 2025-01-20 20:29 | Emergency (ER) | payer OTHER ==
[~2025-01-20] VITALS: Ht 162.5 cm; Wt 81.6 kg
[2025-01-20 20:29] VITALS: BP 158/54
[2025-01-20] MEDS ORDERED: LYRICA50 M1 PO (20:41)
[2025-01-20] MEDS ORDERED: Ondansetron Hydrochloride 4 MG/2 ML VIAL IV ONE (21:05)
[2025-01-20] MEDS ORDERED: diphenhydrAMINE hydrochloride 50 MG/ML VIAL IV ONE (21:05)
[2025-01-20] MEDS ORDERED: SODIUM CHLORIDE 0.9% 1,000 ML IV ONE (21:05)
[2025-01-20] MEDS ORDERED: methylPREDNISolone sod succ 125 MG VIAL IV ONE (21:05)
[2025-01-20] MEDS ORDERED: Promethazine Hydrochloride 25 MG/ML VIAL IM ONE (22:00)
[2025-01-20] MEDS ORDERED: HYDROmorphone Hydrochloride 1 MG/ML SYR IV ONE ×2 (22:30→23:10)
== END 2025-01-20 23:45 | disposition home or self-care (01) ==
LOC: ED 20:29
DX: G43.909 Migraine, unspecified, not intractable, without status migrainosus (principal); Z88.1 Allergy status to other antibiotic agents; Z88.5 Allergy status to narcotic agent; Z91.041 Radiographic dye allergy status; Z88.6 Allergy status to analgesic agent; Z88.2 Allergy status to sulfonamides; Z90.49 Acquired absence of other specified parts of digestive tract; Z98.890 Other specified postprocedural states; Z87.891 Personal history of nicotine dependence

== ENCOUNTER 2025-01-30 13:31 | Emergency (ER) | payer OTHER ==
[~2025-01-30] VITALS: Ht 162.5 cm; Wt 81.6 kg
[~2025-01-30 13:31] MED LIST changes: +LYRICA50 M1 PO
[2025-01-30] MEDS ORDERED: Promethazine Hydrochloride 25 MG/ML VIAL IV ONE (13:40)
[2025-01-30] MEDS ORDERED: SODIUM CHLORIDE 0.9% 1,000 ML IV ONE (13:40)
[2025-01-30 13:41] VITALS: BP 159/58
[2025-01-30 14:12] LABS: MEAN CELL VOLUME 88.8 fl (81.0-99.0); MEAN CORPUSCULAR HGB 29.5 pg (27.0-31.0); MEAN PLATELET VOLUME 10.7 fl (9.6-12.3); NUCLEATED RED BLOOD CELL 0.0 % (0.0-0.0); NUCLEATED RED BLOOD CELL 0.0 10*3/uL (0.0-0.0); PLATELET COUNT AUTOMATED 213 10*3/uL (130-400); RED CELL DISTRI WIDTH 15.1 % (0-14.5)
[2025-01-30 14:14] LABS: MANUAL DIFF REFLEX YES
[2025-01-30 14:30] LABS: BUN 10 mg/dl (9-23)
[2025-01-30 14:34] LABS: BASOPHILS 1 % (0-1); PLATELET SUFFICIENCY NORMAL (NORMAL)
[2025-01-30] MEDS ORDERED: HEPARIN SODIUM 500 UNIT/5 ML SYR IV ONE (15:45)
== END 2025-01-30 15:59 | disposition home or self-care (01) ==
LOC: ED 13:31
PROVIDERS: Emergency Medicine
DX: R07.89 Other chest pain (principal); R11.0 Nausea; J44.9 Chronic obstructive pulmonary disease, unspecified; E11.9 Type 2 diabetes mellitus without complications; I10 Essential (primary) hypertension; E78.5 Hyperlipidemia, unspecified; Z88.1 Allergy status to other antibiotic agents; Z88.5 Allergy status to narcotic agent; Z91.041 Radiographic dye allergy status; Z88.6 Allergy status to analgesic agent; Z88.2 Allergy status to sulfonamides; Z79.899 Other long term (current) drug therapy; Z90.49 Acquired absence of other specified parts of digestive tract; Z98.890 Other specified postprocedural states; Z87.891 Personal history of nicotine dependence

== ENCOUNTER 2025-02-09 00:19 | Emergency (ER) | payer OTHER ==
[~2025-02-09] VITALS: Ht 162.5 cm; Wt 81.6 kg
[2025-02-09 00:45] VITALS: BP 141/109
[2025-02-09] MEDS ORDERED: CYCLOBENZAPRINE10 MG PO (00:46)
[2025-02-09] MEDS ORDERED: LYRICA75 M1 PO (00:46)
[2025-02-09] MEDS ORDERED: LINZESS145 MC1 PO (00:47)
[2025-02-09] MEDS ORDERED: Promethazine Hydrochloride 25 MG/ML VIAL IM ONE (01:20)
== END 2025-02-09 01:24 | disposition home or self-care (01) ==
LOC: ED 00:19
DX: G43.909 Migraine, unspecified, not intractable, without status migrainosus (principal); Z88.1 Allergy status to other antibiotic agents; Z88.5 Allergy status to narcotic agent; Z91.041 Radiographic dye allergy status; Z88.6 Allergy status to analgesic agent; Z88.8 Allergy status to other drugs, medicaments and biological substances; Z88.2 Allergy status to sulfonamides; Z79.899 Other long term (current) drug therapy; Z90.49 Acquired absence of other specified parts of digestive tract; Z98.890 Other specified postprocedural states; Z87.891 Personal history of nicotine dependence

== ENCOUNTER → 2025-02-17 | Outpatient (CLI) | payer OTHER ==
[~2025-02-17] MED LIST changes: +LINZESS145 MC1 PO; +LYRICA75 M1 PO
== END | disposition home or self-care (01) ==
LOC: US 07:53
PROVIDERS: ATTEND Nurse Practitioner Primary Care
DX: K76.0 Fatty (change of) liver, not elsewhere classified (principal); R10.9 Unspecified abdominal pain; Z90.49 Acquired absence of other specified parts of digestive tract

== ENCOUNTER 2025-02-24 23:37 | Emergency (ER) | payer OTHER ==
[~2025-02-24] VITALS: Ht 162.6 cm; Wt 81.6 kg
[2025-02-24] MEDS ORDERED: Promethazine Hydrochloride 25 MG/ML VIAL IM ONE (23:55)
[2025-02-24 23:58] VITALS: BP 159/82
== END 2025-02-25 00:27 | disposition home or self-care (01) ==
LOC: ED 23:37
DX: G43.909 Migraine, unspecified, not intractable, without status migrainosus (principal); R11.2 Nausea with vomiting, unspecified; F17.200 Nicotine dependence, unspecified, uncomplicated; Z90.49 Acquired absence of other specified parts of digestive tract; Z98.890 Other specified postprocedural states; Z88.1 Allergy status to other antibiotic agents; Z88.5 Allergy status to narcotic agent; Z91.041 Radiographic dye allergy status; Z88.2 Allergy status to sulfonamides; Z79.899 Other long term (current) drug therapy

== ENCOUNTER 2025-03-05 22:20 | Emergency (ER) | payer OTHER ==
[2025-03-05 22:36] VITALS: BP 151/106
[2025-03-05] MEDS ORDERED: Promethazine Hydrochloride 25 MG/ML VIAL IM ONE (23:55)
== END 2025-03-06 01:24 | disposition home or self-care (01) ==
LOC: ED 22:20
DX: G43.909 Migraine, unspecified, not intractable, without status migrainosus (principal); N18.31 Chronic kidney disease, stage 3a; F17.200 Nicotine dependence, unspecified, uncomplicated; Z88.8 Allergy status to other drugs, medicaments and biological substances; Z88.1 Allergy status to other antibiotic agents; Z91.041 Radiographic dye allergy status; Z88.5 Allergy status to narcotic agent; Z98.82 Breast implant status; Z88.6 Allergy status to analgesic agent; Z79.899 Other long term (current) drug therapy

== ENCOUNTER 2025-03-21 13:13 | Emergency (ER) | payer OTHER ==
[~2025-03-21] VITALS: Ht 162.5 cm; Wt 81.6 kg
[2025-03-21 13:25] VITALS: BP 152/75
[2025-03-21] MEDS ORDERED: Promethazine Hydrochloride 25 MG/ML VIAL IV ONE (13:40)
[2025-03-21] MEDS ORDERED: SODIUM CHLORIDE 0.9% 1,000 ML IV ONE (13:40)
[2025-03-21 14:21] LABS: BASO # 0.1 10*3/uL (0.0-0.1); BASO % 0.5 % (0.0-1.0); EOS # 0.1 10*3/uL (0.0-0.4); EOS % 1.0 % (1.0-4.0); MEAN CELL VOLUME 91.1 fl (81.0-99.0); MEAN CORPUSCULAR HGB 29.4 pg (27.0-31.0); MEAN PLATELET VOLUME 10.3 fl (9.6-12.3); MONO # 0.7 10*3/uL (0.1-1.0); MONO % 6.4 % (3.0-9.0); NEUT # 6.7 10*3/uL (2.3-7.9); NEUT % 63.7 % (47.0-73.0); NUCLEATED RED BLOOD CELL 0.0 % (0.0-0.0); NUCLEATED RED BLOOD CELL 0.0 10*3/uL (0.0-0.0); PLATELET COUNT AUTOMATED 243 10*3/uL (130-400); RED CELL DISTRI WIDTH 15.6 % (0-14.5)
[2025-03-21 14:44] LABS: BUN 10 mg/dl (9-23)
[2025-03-21 14:45] LABS: SGPT/ALT < 7 U/L (5-49)
[2025-03-21 15:36] LABS: BILIRUBIN Negative (Negative); BLOOD Negative (Negative); CLARITY Cloudy (Clear); COLOR Yellow (Yellow); KETONE Negative (Negative); LEUKO ESTERASE Trace (Negative); NITRITE Negative (Negative); PH 5.5 (4.5-8.0); SPECIFIC GRAVITY 1.015 (1.001-1.030); UROBILINOGEN 1.0 E.U./dl (0.0-1.0)
[2025-03-21 15:53] LABS: BACTERIA 3+; EPITHELIAL CELLS 21-30
[2025-03-21] MEDS ORDERED: Nitrofurantoin Monohydrate/N 100 MG CAP PO ONE (16:30)
[2025-03-21] MEDS ORDERED: MACROBID100 M1 PO (16:31)
[2025-03-21] MEDS ORDERED: HEPARIN SODIUM 500 UNIT/5 ML SYR IV ONE (16:55)
== END 2025-03-21 17:04 | disposition home or self-care (01) ==
LOC: ED 13:13
PROVIDERS: Emergency Medicine
DX: N39.0 Urinary tract infection, site not specified (principal); R11.2 Nausea with vomiting, unspecified; G43.909 Migraine, unspecified, not intractable, without status migrainosus; F17.210 Nicotine dependence, cigarettes, uncomplicated; Z98.890 Other specified postprocedural states; Z90.49 Acquired absence of other specified parts of digestive tract; Z88.1 Allergy status to other antibiotic agents; Z88.5 Allergy status to narcotic agent; Z88.8 Allergy status to other drugs, medicaments and biological substances

== ENCOUNTER 2025-03-26 21:01 | Emergency (ER) | payer OTHER ==
[~2025-03-26] VITALS: Ht 162.5 cm; Wt 81.6 kg
[2025-03-26 22:32] VITALS: BP 131/70
[2025-03-27] MEDS ORDERED: HYDROmorphONE Hydrochloride 0.5 MG/0.5 ML SYRINGE IM ONE (02:05)
[2025-03-30] MEDS ORDERED: TRAMADOL HCL50 MG PO (11:25)
== END 2025-03-27 02:18 | disposition home or self-care (01) ==
LOC: ED 21:01
DX: G89.29 Other chronic pain (principal); M54.50 Low back pain, unspecified; F17.200 Nicotine dependence, unspecified, uncomplicated; Z88.1 Allergy status to other antibiotic agents; Z88.5 Allergy status to narcotic agent; Z91.041 Radiographic dye allergy status; Z88.2 Allergy status to sulfonamides; Z88.6 Allergy status to analgesic agent; Z79.899 Other long term (current) drug therapy; Z90.49 Acquired absence of other specified parts of digestive tract; Z98.890 Other specified postprocedural states

== ENCOUNTER 2025-04-01 11:16 | Emergency (ER) | payer OTHER ==
[~2025-04-01] VITALS: Ht 162.5 cm; Wt 81.6 kg
[2025-04-01 11:25] VITALS: BP 164/95
[2025-04-01] MEDS ORDERED: SODIUM CHLORIDE 0.9% 1,000 ML IV ONE (11:40)
[2025-04-01] MEDS ORDERED: Promethazine Hydrochloride 25 MG/ML VIAL IV ONE (11:40)
[2025-04-01 12:31] LABS: BILIRUBIN Negative (Negative); BLOOD Negative (Negative); CLARITY Clear (Clear); COLOR Yellow (Yellow); KETONE Negative (Negative); LEUKO ESTERASE Negative (Negative); NITRITE Negative (Negative); PH 7.0 (4.5-8.0); SPECIFIC GRAVITY 1.010 (1.001-1.030); UROBILINOGEN 0.2 E.U./dl (0.0-1.0)
[2025-04-01 12:41] LABS: BACTERIA 2+; EPITHELIAL CELLS 21-30
[2025-04-01 12:41] LABS: BASO # 0.1 10*3/uL (0.0-0.1); BASO % 0.7 % (0.0-1.0); EOS # 0.2 10*3/uL (0.0-0.4); EOS % 1.8 % (1.0-4.0); MEAN CELL VOLUME 90.6 fl (81.0-99.0); MEAN CORPUSCULAR HGB 29.3 pg (27.0-31.0); MEAN PLATELET VOLUME 10.5 fl (9.6-12.3); MONO # 0.7 10*3/uL (0.1-1.0); MONO % 6.9 % (3.0-9.0); NEUT # 5.4 10*3/uL (2.3-7.9); NEUT % 53.9 % (47.0-73.0); NUCLEATED RED BLOOD CELL 0.0 % (0.0-0.0); NUCLEATED RED BLOOD CELL 0.0 10*3/uL (0.0-0.0); PLATELET COUNT AUTOMATED 248 10*3/uL (130-400); RED CELL DISTRI WIDTH 15.0 % (0-14.5)
[2025-04-01 13:05] LABS: BUN 9 mg/dl (9-23); SGPT/ALT 8 U/L (5-49)
[2025-04-01] MEDS ORDERED: HEPARIN SODIUM 500 UNIT/5 ML SYR IV ONE (13:50)
== END 2025-04-01 13:41 | disposition home or self-care (01) ==
LOC: ED 11:16
PROVIDERS: Nurse Practitioner Family
DX: K52.9 Noninfective gastroenteritis and colitis, unspecified (principal); J44.9 Chronic obstructive pulmonary disease, unspecified; G43.909 Migraine, unspecified, not intractable, without status migrainosus; N18.9 Chronic kidney disease, unspecified; F17.200 Nicotine dependence, unspecified, uncomplicated; Z88.5 Allergy status to narcotic agent; Z88.6 Allergy status to analgesic agent; Z88.2 Allergy status to sulfonamides; Z88.1 Allergy status to other antibiotic agents; Z91.041 Radiographic dye allergy status; Z79.899 Other long term (current) drug therapy; Z90.49 Acquired absence of other specified parts of digestive tract; Z98.890 Other specified postprocedural states; Z90.89 Acquired absence of other organs

== ENCOUNTER → 2025-04-09 | Outpatient (CLI) | payer OTHER | END | disposition home or self-care (01) | LOC: LAB 13:34 → RAD 13:34 | PROVIDERS: ATTEND Nurse Practitioner Primary Care | DX: Z01.810 Encounter for preprocedural cardiovascular examination (principal) ==

== ENCOUNTER → 2025-04-12 | Day surgery (SDC) | payer OTHER ==
[~2025-04-12] MED LIST changes: +HEPARIN SODIUM 500 UNIT/5 ML SYR IV ONE; +HEPARIN SODIUM 500 UNIT/5 ML SYR IV SCH; +SODIUM CHLORIDE 0.9% 10 ML SYR IV PRN
== END | disposition home or self-care (01) ==
LOC: SDC 08:48
PROVIDERS: ATTEND Nurse Practitioner Primary Care
DX: Z45.2 Encounter for adjustment and management of vascular access device (principal)

== ENCOUNTER 2025-04-27 00:44 | Emergency (ER) | payer OTHER ==
[~2025-04-27] VITALS: Ht 160 cm; Wt 82.6 kg
[~2025-04-27 00:44] MED LIST changes: -HEPARIN SODIUM 500 UNIT/5 ML SYR IV ONE; -HEPARIN SODIUM 500 UNIT/5 ML SYR IV SCH; -SODIUM CHLORIDE 0.9% 10 ML SYR IV PRN
[2025-04-27 01:04] VITALS: BP 183/81
[2025-04-27] MEDS ORDERED: SODIUM CHLORIDE 0.9% 1,000 ML IV ONE (01:05)
[2025-04-27] MEDS ORDERED: Promethazine Hydrochloride 25 MG/ML VIAL IV ONE (01:05)
[2025-04-27] MEDS ORDERED: HEPARIN SODIUM 500 UNIT/5 ML SYR IV ONE (02:05)
== END 2025-04-27 02:10 | disposition home or self-care (01) ==
LOC: ED 00:44
DX: G43.909 Migraine, unspecified, not intractable, without status migrainosus (principal); F17.200 Nicotine dependence, unspecified, uncomplicated; Z88.1 Allergy status to other antibiotic agents; Z88.5 Allergy status to narcotic agent; Z91.041 Radiographic dye allergy status; Z88.2 Allergy status to sulfonamides; Z88.6 Allergy status to analgesic agent; Z79.899 Other long term (current) drug therapy; Z90.49 Acquired absence of other specified parts of digestive tract; Z98.890 Other specified postprocedural states

== ENCOUNTER 2025-05-05 23:40 | Emergency (ER) | payer OTHER ==
[~2025-05-05] VITALS: Ht 160 cm; Wt 81.6 kg
[2025-05-05 23:51] VITALS: BP 136/91
[2025-05-05] MEDS ORDERED: LIDOCAINE 1 EA PATCH T ONE (23:55)
[2025-05-06] MEDS ORDERED: LIDOCAINE PAIN1 EACH T (01:28)
== END 2025-05-06 01:36 | disposition home or self-care (01) ==
LOC: ED 23:40
DX: M62.830 Muscle spasm of back (principal); M54.50 Low back pain, unspecified; K21.9 Gastro-esophageal reflux disease without esophagitis; F32.A Depression, unspecified; M19.90 Unspecified osteoarthritis, unspecified site; F41.9 Anxiety disorder, unspecified; E78.00 Pure hypercholesterolemia, unspecified; F17.210 Nicotine dependence, cigarettes, uncomplicated; Z88.1 Allergy status to other antibiotic agents; Z88.5 Allergy status to narcotic agent; Z88.8 Allergy status to other drugs, medicaments and biological substances; Z90.49 Acquired absence of other specified parts of digestive tract; Z98.890 Other specified postprocedural states; Z90.81 Acquired absence of spleen

== ENCOUNTER 2025-05-19 22:15 | Emergency (ER) | payer OTHER ==
[~2025-05-19] VITALS: Ht 162.5 cm; Wt 84.4 kg
[~2025-05-19 22:15] MED LIST changes: +LIDOCAINE PAIN1 EACH T
[2025-05-19 22:22] VITALS: BP 91/63
[2025-05-19 23:11] LABS: BILIRUBIN Negative (Negative); BLOOD Negative (Negative); CLARITY Clear (Clear); COLOR Yellow (Yellow); KETONE Negative (Negative); LEUKO ESTERASE Negative (Negative); NITRITE Negative (Negative); PH 7.0 (4.5-8.0); SPECIFIC GRAVITY <= 1.005 (1.001-1.030); UROBILINOGEN 0.2 E.U./dl (0.0-1.0)
[2025-05-19 23:11] LABS: MEAN CELL VOLUME 92.1 fl (81.0-99.0); MEAN CORPUSCULAR HGB 30.2 pg (27.0-31.0); MEAN PLATELET VOLUME 11.0 fl (9.6-12.3); NUCLEATED RED BLOOD CELL 0.0 % (0.0-0.0); NUCLEATED RED BLOOD CELL 0.0 10*3/uL (0.0-0.0); PLATELET COUNT AUTOMATED 227 10*3/uL (130-400); RED CELL DISTRI WIDTH 15.1 % (0-14.5)
[2025-05-19 23:15] LABS: MANUAL DIFF REFLEX YES
[2025-05-19 23:31] LABS: BACTERIA 1+; EPITHELIAL CELLS 31-40; WBC 0-2 wbc/hpf (0-5)
[2025-05-19 23:34] LABS: PLATELET SUFFICIENCY NORMAL (NORMAL)
[2025-05-19] MEDS ORDERED: Promethazine Hydrochloride 25 MG/ML VIAL IM ONE (23:35)
[2025-05-19 23:40] LABS: BUN 12.0 mg/dl (9-23)
[2025-05-20] MEDS ORDERED: Phenergan25 MG PO (00:05)
== END 2025-05-20 00:10 | disposition home or self-care (01) ==
LOC: ED 22:15
PROVIDERS: Internal Medicine
DX: B34.9 Viral infection, unspecified (principal); E11.65 Type 2 diabetes mellitus with hyperglycemia; E11.22 Type 2 diabetes mellitus with diabetic chronic kidney disease; N18.30 Chronic kidney disease, stage 3 unspecified; D72.829 Elevated white blood cell count, unspecified; R11.2 Nausea with vomiting, unspecified; F17.200 Nicotine dependence, unspecified, uncomplicated; Z88.1 Allergy status to other antibiotic agents; Z88.5 Allergy status to narcotic agent; Z91.041 Radiographic dye allergy status; Z88.6 Allergy status to analgesic agent; Z88.2 Allergy status to sulfonamides; Z79.899 Other long term (current) drug therapy; Z90.49 Acquired absence of other specified parts of digestive tract; Z98.890 Other specified postprocedural states

== ENCOUNTER 2025-07-02 23:05 | Emergency (ER) | payer OTHER ==
[~2025-07-02] VITALS: Ht 162.5 cm; Wt 82.6 kg
[2025-07-02 23:13] VITALS: BP 108/81
[2025-07-02] MEDS ORDERED: SODIUM CHLORIDE 0.9% 500 ML IV ONE (23:40)
[2025-07-02] MEDS ORDERED: Promethazine Hydrochloride 25 MG/ML VIAL IV ONE (23:40)
[2025-07-02] MEDS ORDERED: Dexamethasone Sodium Phospha 20 MG/5 ML VIAL IV ONE (23:45)
[2025-07-03] MEDS ORDERED: Lidocaine Hydrochloride 2% 10 ML AMP SC ONE (00:10)
[2025-07-03] MEDS ORDERED: Promethazine Hydrochloride 25 MG/ML VIAL IM ONE (00:10)
[2025-07-14] MEDS ORDERED: PERCOCET 5-3251 EACH PO (13:18)
[2025-07-14] MEDS ORDERED: VIBRA-TAB100 MG PO (13:19)
[2025-07-14] MEDS ORDERED: XARELTO10 MG PO (13:20)
[2025-07-14] MEDS ORDERED: WALKER (13:21)
== END 2025-07-03 01:05 | disposition home or self-care (01) ==
LOC: ED 23:05
DX: G43.909 Migraine, unspecified, not intractable, without status migrainosus (principal); K21.9 Gastro-esophageal reflux disease without esophagitis; F32.A Depression, unspecified; M19.90 Unspecified osteoarthritis, unspecified site; M79.7 Fibromyalgia; F41.9 Anxiety disorder, unspecified; F17.210 Nicotine dependence, cigarettes, uncomplicated; Z90.49 Acquired absence of other specified parts of digestive tract; Z98.890 Other specified postprocedural states; Z88.5 Allergy status to narcotic agent; Z88.1 Allergy status to other antibiotic agents; Z88.8 Allergy status to other drugs, medicaments and biological substances

== ENCOUNTER → 2025-07-14 | Day surgery (SDC) | payer OTHER ==
[~2025-07-14] VITALS: Ht 152.4 cm; Wt 81.6 kg
[2025-07-14] VITALS (11 sets, daily range): BP systolic 104–153; BP diastolic 41–109
[~2025-07-14] MED LIST changes: +Acetaminophen/Oxycodone 5 MG/325 MG TABLET ONE; +Acetaminophen/Oxycodone 5 MG/325 MG TABLET PO ONE; +Dexamethasone Sodium Phospha 20 MG/5 ML VIAL ONE; +Dexamethasone Sodium Phospha 4 MG/ML VIAL IV ONE; +HEPARIN SODIUM 500 UNIT/5 ML SYR IV ONE; +HEPARIN SODIUM 500 UNIT/5 ML SYR IV SCH; +HYDROmorphONE Hydrochloride 0.5 MG/0.5 ML SYRINGE IV ONE; +HYDROmorphONE Hydrochloride 0.5 MG/0.5 ML SYRINGE ONE; +Lactated Ringer's Solution 0 ML IV ONE; +Lactated Ringer's Solution 1,000 ML IV ONE; +Lidocaine Hydrochloride 5 ML VIAL IV ONE; +Midazolam Hydrochloride 2 MG/2 ML VIAL IV ONE; +Ondansetron Hydrochloride 4 MG/2 ML VIAL IV ONE; +PROPOFOL 200 MG/20 ML VIAL IV ONE; +Phenylephrine Hydrochloride 1 MG/10 ML SYRINGE IV ONE; +SEVOFLURANE 250 ML BOT INH ONE; +SODIUM CHLORIDE 0.9% 1,000 ML IV ONE; +Vancomycin Hydrochloride 1,000 MG VIAL ONE; +WALKER
== END | disposition home or self-care (01) ==
LOC: SDC 07-12 08:00
PROVIDERS: ATTEND Podiatrist
DX: M62.462 Contracture of muscle, left lower leg (principal); S93.402A Sprain of unspecified ligament of left ankle, initial encounter; M25.372 Other instability, left ankle; M21.172 Varus deformity, not elsewhere classified, left ankle; F41.9 Anxiety disorder, unspecified; F32.A Depression, unspecified; J44.9 Chronic obstructive pulmonary disease, unspecified; G43.909 Migraine, unspecified, not intractable, without status migrainosus; F17.200 Nicotine dependence, unspecified, uncomplicated; Z98.890 Other specified postprocedural states; Z88.8 Allergy status to other drugs, medicaments and biological substances; Z91.041 Radiographic dye allergy status; X58.XXXA Exposure to other specified factors, initial encounter; Y93.89 Activity, other specified; Y92.89 Other specified places as the place of occurrence of the external cause; Y99.8 Other external cause status

== ENCOUNTER 2025-07-18 22:05 | Emergency (ER) | payer OTHER ==
[~2025-07-18] VITALS: Ht 157.4 cm; Wt 63.5 kg
[~2025-07-18 22:05] MED LIST changes: -Acetaminophen/Oxycodone 5 MG/325 MG TABLET ONE; -Acetaminophen/Oxycodone 5 MG/325 MG TABLET PO ONE; -Dexamethasone Sodium Phospha 20 MG/5 ML VIAL ONE; -Dexamethasone Sodium Phospha 4 MG/ML VIAL IV ONE; -HEPARIN SODIUM 500 UNIT/5 ML SYR IV ONE; -HEPARIN SODIUM 500 UNIT/5 ML SYR IV SCH; -HYDROmorphONE Hydrochloride 0.5 MG/0.5 ML SYRINGE IV ONE; -HYDROmorphONE Hydrochloride 0.5 MG/0.5 ML SYRINGE ONE; -Lactated Ringer's Solution 0 ML IV ONE; -Lactated Ringer's Solution 1,000 ML IV ONE; -Lidocaine Hydrochloride 5 ML VIAL IV ONE; -Midazolam Hydrochloride 2 MG/2 ML VIAL IV ONE; -Ondansetron Hydrochloride 4 MG/2 ML VIAL IV ONE; -PROPOFOL 200 MG/20 ML VIAL IV ONE; -Phenylephrine Hydrochloride 1 MG/10 ML SYRINGE IV ONE; -SEVOFLURANE 250 ML BOT INH ONE; -SODIUM CHLORIDE 0.9% 1,000 ML IV ONE; -Vancomycin Hydrochloride 1,000 MG VIAL ONE
[2025-07-18 22:09] VITALS: BP 147/75
== END 2025-07-18 23:45 | disposition home or self-care (01) ==
LOC: ED 22:05
DX: S89.92XA Unspecified injury of left lower leg, initial encounter (principal); G43.909 Migraine, unspecified, not intractable, without status migrainosus; K21.9 Gastro-esophageal reflux disease without esophagitis; F32.A Depression, unspecified; M79.7 Fibromyalgia; F17.210 Nicotine dependence, cigarettes, uncomplicated; Z90.49 Acquired absence of other specified parts of digestive tract; Z98.890 Other specified postprocedural states; Z90.81 Acquired absence of spleen; Z88.5 Allergy status to narcotic agent; Z88.1 Allergy status to other antibiotic agents; Z88.8 Allergy status to other drugs, medicaments and biological substances; W10.9XXA Fall (on) (from) unspecified stairs and steps, initial encounter; Y93.89 Activity, other specified; Y92.89 Other specified places as the place of occurrence of the external cause; Y99.8 Other external cause status